=== PATIENT | female | born 1945 | race Caucasian/White ===

== ENCOUNTER → 2017-04-02 | Outpatient (CLI) | payer MEDICARE ==
--- NOTE | 2017-04-03 07:39 | MM ---
Reason for exam: screening (asymptomatic). Last mammogram was performed 1 year and 3 months ago. History: Patient is postmenopausal, has history of high-risk lesion on a previous biopsy at age 67, and has history of other cancer at age 49. Family history of breast cancer in mother. Benign right breast needle localzation of both breasts, November 12, 2012. High risk US RT VAD breast biopsy of the right breast, October 30, 2012. Benign excisional biopsy of the left breast. Took estrogen for 10 years. Physical Findings: A clinical breast exam by your physician is recommended on an annual basis and results should be correlated with mammographic findings. MG 3D Screening Mammo W/Cad Bilateral CC and MLO view(s) were taken. Prior study comparison: December 19, 2015, bilateral MG 3d screening mammo w/cad. December 06, 2014, bilateral MG screening mammo w CAD. November 20, 2013, bilateral MG screening mammo w CAD. The breast tissue is heterogeneously dense. This may lower the sensitivity of mammography. Finding: There are a occasional typically benign calcifications in both breasts. There is a chronic nodularity in the left breast. There is no new dominant lesion. ASSESSMENT: Probably benign, BI-RAD 3 RECOMMENDATION: Routine screening mammogram of both breasts in 1 year.
== END | disposition home or self-care (01) ==
LOC: RADMAMWWP 07:59
PROVIDERS: ATTEND Obstetrics & Gynecology
DX: Z12.31 Encounter for screening mammogram for malignant neoplasm of breast (principal)
CPT/HCPCS: 77063; G0202

== ENCOUNTER 2017-09-11 06:14 | Day surgery (SDC) | payer MEDICARE ==
[2017-09-06 15:38] VITALS: BMI 28.1
[~2017-09-11 06:14] MED LIST: ALPRAZolam 0.25 MG TAB PO PRN; ASPIRIN 325 MG TAB PO ONE; SODIUM CHLORIDE 0.9% 1,000 ML in EMPTY BAG 1 BAG IV ONE
[2017-09-11] MEDS ORDERED: MIDAZOLAM 2 MG/2 ML VIAL ONE ×2 (06:47→07:50)
[2017-09-11] MEDS ORDERED: fentaNYL (PF) 50 MCG/ML 2 ML AMP ONE (06:48)
[2017-09-11 06:55] LABS: Basophils % (A) 1 %; Eosinophils # (A) 0.2 k/uL (0-0.7); Eosinophils % (A) 4 %; HCT 39.5 % (34.0-46.0); HGB 13.3 gm/dL (11.4-16.0); Lymphocytes # (A) 2.5 k/uL (1.0-4.8); Lymphocytes % (A) 40 %; MCH 27.1 pg (25.0-35.0); MCHC 33.8 g/dL (31.0-37.0); MCV 80.2 fL (80.0-100.0); Mean Platelet Volume 7.6; Monocytes # (A) 0.4 k/uL (0-1.0); Monocytes % (A) 6 %; Neutrophils % (A) 48 %; Platelet Count 284 k/uL (150-450); RBC 4.92 m/uL (3.80-5.40); RDW 13.8 % (11.5-15.5); WBC 6.3 k/uL (3.8-10.6)
[2017-09-11 06:56] VITALS: TEMP 97.7
[2017-09-11] MEDS: BENZOCAINE SPRAY 1 SPRAY CAN MUCOUS MEM ONE ×3 (07:02→07:07)
[2017-09-11] MEDS ORDERED: fentaNYL (PF) 50 MCG/ML 2 ML AMP IVP ONE (07:03)
[2017-09-11] MEDS: MIDAZOLAM 2 MG/2 ML VIAL IVP ONE ×2 (07:03→07:07)
[2017-09-11 07:06] LABS: Anion Gap 12 mmol/L; Blood Urea Nitrogen 18 mg/dL (7-17); Calcium 9.6 mg/dL (8.4-10.2); Carbon Dioxide 25 mmol/L (22-30); Chloride 104 mmol/L (98-107); Glucose 109 mg/dL (74-99); Potassium 4.1 mmol/L (3.5-5.1); Sodium 141 mmol/L (137-145)
[2017-09-11] MEDS ORDERED: MIDAZOLAM 2 MG/2 ML VIAL IVP ONE ×2 (07:09→07:52)
[2017-09-11] MEDS ORDERED: LIDOCAINE 2% INJ 20 MG/ML (20 ML MDV) ONE (07:20)
[2017-09-11] MEDS ORDERED: VERAPAMIL 2.5 MG/ML 2 ML AMP ONE (07:20)
[2017-09-11] MEDS ORDERED: HEPARIN SODIUM 1,000 UN/ML (10ML VL) ONE (07:20)
[2017-09-11] MEDS ORDERED: SODIUM CHLORIDE 0.9% 1,000 ML IV ONE (07:22)
[2017-09-11] MEDS ORDERED: LIDOCAINE 2% INJ 20 MG/ML SQ ONE (07:48)
[2017-09-11] MEDS: VERAPAMIL SYRINGE (5 MG/10 ML) INTRAARTER ONE ×2 (07:53→08:18)
[2017-09-11] MEDS ORDERED: IOHEXOL 350 MG/ML 125ML BOTTLE INJ ONE (08:17)
[2017-09-11 08:21] LABS: O2 Sat Blood Gas 63.8 %
[2017-09-11 08:22] LABS: O2 Sat Blood Gas 96.1 %
[2017-09-11] MEDS ORDERED: RX INFO: IV CONTRAST WAS GIVEN 1 EACH MISC MISCELLANE PRN (08:28)
--- NOTE | 2017-09-11 08:28 | ECHOT ---
TRANSESOPHAGEAL ECHOCARDIOGRAM INDICATION: Evaluation of mitral valve. PROCEDURE: After explaining the procedure to the patient as well as risks and the complications. Blood pressure, heart rate, O2 saturation was monitored. The throat was sprayed with Cetacaine. She received 3 mg of intravenous Versed, 50 mcg intravenous fentanyl. After achieving moderate conscious sedated state, the probe was introduced into the esophagus without difficulty. Images were obtained. Following that, the probe was removed. There was no immediate complication. FINDINGS: Left atrial size is dilated. Left atrial appendage is normal. Left ventricular size is normal. There is evidence of global hypokinesis. Estimated ejection fraction is 30% to 35%. The aortic valve, mitral valve, tricuspid valve appears to be normal. Descending thoracic aorta appears to be normal. Contrast bubble study revealed no evidence of shunting across the interatrial septum. No pericardial effusion was noted. Doppler pulse wave and color Doppler was obtained and revealed moderate to severe mitral regurgitation with moderate tricuspid regurgitation. The estimated right ventricular systolic pressure 36 mmHg. Mild aortic regurgitation was noted with trace pulmonic regurgitation. There was no shunting by color Doppler study. CONCLUSION: 1. Mildly dilated left atrium with normal appearance left atrial appendage. 2. Normal left ventricular size with severe global hypokinesis. 3. Moderate to severe mitral with moderate tricuspid regurgitation and mild pulmonary hypertension. 4. Mild aortic regurgitation and trace pulmonic regurgitation. 5. No shunting across the interatrial septum. MMODL / IJN: [id number] /
[2017-09-11] MEDS ORDERED: ACYCLOVIR TOPICAL PRN (08:30)
[2017-09-11] MEDS ORDERED: valACYclovir 500 MG TAB PO PRN (08:30)
[2017-09-11] MEDS ORDERED: SODIUM CHLORIDE 0.9% 1,000 ML IV SCH (08:30)
[2017-09-11] MEDS ORDERED: NON-FORMULARY DRUG (Omeprazole [Omeprazole] 20 MG) PO SCH (09:00)
[2017-09-11] MEDS ORDERED: NON-FORMULARY DRUG (Acetaminophen [Tylenol Arthritis] 650 MG) PO SCH (09:00)
[2017-09-11] MEDS ORDERED: RALOXIFENE 60 MG TAB PO SCH (09:00)
[2017-09-11] MEDS ORDERED: OXYBUTYNIN 15 MG TAB.ER.24 PO SCH (09:00)
[2017-09-11] MEDS ORDERED: METOPROLOL TARTRATE 50 MG TAB PO SCH (09:00)
[2017-09-11] MEDS ORDERED: NON-FORMULARY DRUG (Simvastatin 40 MG) PO SCH (09:00)
[2017-09-11] MEDS ORDERED: HYDROCHLOROTHIAZIDE 12.5 MG CAP PO SCH (09:00)
[2017-09-11] MEDS ORDERED: APIXABAN 5 MG TAB PO SCH (09:00)
--- NOTE | 2017-09-11 09:27 | CC ---
CARDIAC CATHETERIZATION REPORT Mrs. Loomis is a 72-year-old female who was recently noted to be in atrial fibrillation, was found to have significant mitral regurgitation and cardiomyopathy. In view of that, recommendation was made regarding cardiac catheterization. The procedure as well as the risks and complications were discussed with the patient who is in full understanding and agreement. 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 Using Xylocaine anesthesia in the Seldinger technique, a 6-Mexican sheath was introduced in the right radial artery. Subsequently, the IV catheter in the right brachial vein was exchanged using micro catheter 6-Mexican sheath. Right heart catheterization was performed using [place]-Angie catheter. Multiple samples and pressures were calculated. Cardiac output by thermodilution was calculated. Following that, selective right and left coronary angiography were performed using 5-Mexican 3.5 bend right and left Carlos catheter. Multiple views of the coronary artery including hemiaxial views were obtained. Following that 5-Mexican tight pigtail catheter was introduced into the left ventricle and a 30-degree ZARAGOZA view of the left ventricle was obtained. Following that, the catheter and sheaths were removed. Hemostasis was obtained with deployment of a TR band. There was no immediate complication. Patient is returned to her room in stable condition. The venous sheath was removed and manual pressure was applied. The patient received 4500 units of intravenous heparin as well as intra-arterial verapamil. FINDINGS: HEMODYNAMICS: Pulmonary capillary wedge pressure, V-wave of 12 with a mean of 10 mmHg. Pulmonary artery systolic pressure of 24 mmHg with an end-diastolic of 12 and a mean of 18 mmHg. Right ventricle with a systolic pressure of 26 and an end-diastolic of 10. Right atrial with a V-wave of 8 and a mean of 7 mmHg. There was no gradient across the aortic valve. The left ventricular end-diastolic pressure was 12 mmHg. Cardiac output by thermodilution 5 L/minute and by Aida of 4 L/minute. Right atrial saturation of 64%. Pulmonary artery saturation 64%. Radial artery saturation of 96%. CORONARIES: LEFT MAIN: This is a large-sized vessel bifurcating left circumflex and left anterior descending artery. Left main coronary artery without any obstructive disease. LEFT ANTERIOR DESCENDING ARTERY: This is a large-sized vessel reaching toward the apex with a wraparound apex segment giving rise to 2 diagonal branches. The second one is large in caliber. The left anterior descending artery as well as branches have no evidence of obstructive coronary artery disease. LEFT CIRCUMFLEX: This is a nondominant vessel, large in caliber giving rise to 3 obtuse marginal branches. The second one is largest in caliber. The left circumflex as well as branches have no evidence of coronary artery disease. RIGHT CORONARY ARTERY: This is a dominant vessel, moderate to large in caliber bifurcating distally to PDA and PLV. The right coronary artery as well as branches have no evidence of obstructive coronary artery disease. LEFT VENTRICULOGRAM: Left ventriculogram is performed in 30-degree ZAR[place]OZA view and revealed a 3 to 4+ mitral regurgitation with moderate to severe global hypokinesis with ejection fraction of 30% to 35%. CONCLUSION: 1. Normal coronary arteries. 2. Severe mitral regurgitation with an impaired left ventricular systolic function. RECOMMENDATION: In view of finding anatomy, I recommend proceeding with evaluation for mitral valve repair. Those findings and recommendations were discussed with the patient and her family and are in full understanding and agreement. Duration of procedure is 34 minutes. MMODL / IJN: [id number] /
--- NOTE | 2017-09-11 09:34 | LTR ---
September 11, 2017 Re: Kaleigh Farmerer Dear Dr. Andersen: I had the opportunity to perform cardiac catheterization on Mrs. Loomis at [facility] on the 11 of September and a full copy of the procedure note will be forwarded to you. In brief, she was found to have severe mitral regurgitation with a moderate to severely impaired left ventricular systolic function and normal coronary anatomy. Based on those findings, I have recommended proceeding with evaluation for mitral valve repair. I will keep you updated on her progress and thank you again for allowing me the opportunity to participate in her care. Please feel free to call for any questions. Sincerely yours, MD JUJU BrinkL / MARGARITAN: [id number] /
[2017-09-11 09:55] VITALS: RESP 18
[2017-09-11] MEDS ORDERED: ACETAMINOPHEN TAB 325 MG TAB ONE (11:25)
[2017-09-11 11:49] VITALS: BP 117/61; PULSE 83
== END 2017-09-11 13:33 | disposition home or self-care (01) ==
LOC: CATHCVL 06:14
PROVIDERS: ATTEND Internal Medicine Interventional Cardiology
DX: I08.3 Combined rheumatic disorders of mitral, aortic and tricuspid valves (principal); I48.1 Persistent atrial fibrillation; Z79.01 Long term (current) use of anticoagulants; I42.9 Cardiomyopathy, unspecified; I10 Essential (primary) hypertension; E78.2 Mixed hyperlipidemia; Z79.1 Long term (current) use of non-steroidal anti-inflammatories (NSAID); Z79.899 Other long term (current) drug therapy; Z88.5 Allergy status to narcotic agent
CPT/HCPCS: 93312; 93320; 93325; 93460; 80048; 85018; 82810; 85025; C1769 ×3; C1894 ×4; C1751; J2001; J2250; J3010; J1644; Q9967

== ENCOUNTER → 2018-04-17 | Outpatient (CLI) | payer MEDICARE ==
--- NOTE | 2018-04-17 09:17 | BD ---
EXAMINATION TYPE: Axial Bone Density DATE OF EXAM: 04/17/2018 COMPARISON: 12.19.2015 CLINICAL HISTORY: 73 YR OLD FEMALE....ICD-10 CODE: M85.80 OTHER SPECIFIED DISORDER OF BONE DENSITY Height: 65.4 Weight: 184 FRAX RISK QUESTIONS: NOTHING TO NOTE HERE RISK FACTORS HISTORY OF: Family History of Osteoporosis: YES, HER MOTHER WITHOUT FX TO HIPS Active: NOT REALLY, SURG TO FOOT Diet low in dairy products/other sources of calcium: YES, A BIT Postmenopausal woman: HYST AT AGE 48 Lost more than 2 inches in height since high school: YES Frequent falls: UNSTEADY MEDICATIONS: EVISTA FOR OSTEOPOROSIS, FOR ABOUT 10 YRS Additional Medications: BP MEDS, STATIN FOR CHOLESTEROL, REFLEX MEDS, NSAIDS, PAIN MEDS, HEART MEDS Additional History: OPEN HEART SURG, OSTEOARTHRITIS EXAM MEASUREMENTS: Bone mineral densitometry was performed using the [employer] System. Bone mineral density as measured about the Lumbar spine is: ----- L1-L4(G/cm2): 0.999 T Score Values are as follows: ----- L1: -1.8 ----- L2: -2.0 ----- L3: -0.9 ----- L4: -1.5 ----- L1-L4: -1.5 Bone mineral density has: Increased 0.8% since study of: 12.19.2015 Bone mineral density about the R hip (g/cm2): 1.014 Bone mineral density about the L hip (g/cm2): 0.986 T Score values are as follows: -----R Neck: 0.4 -----L Neck: -0.2 -----R Total: 0.0 -----L Total: -0.2 Bone mineral density has: Decreased -0.1 % since study of: 12.19.2015 FRAX%s: THERE IS A 7.6% CHANCE FOR A MAJOR OSTEOPOROTIC FX AND A 0.7% FOR HIP FX....PROBABILITY OF FX IN 10 YRS TIME IMPRESSION: Osteopenia (T Score between -2.5 and -1) persists in the low back. Bone density fairly stable from pr ior. There remains slightly increased risk of fracture and the patient may be considered for treatment. Re-Screen 2-5 years. NOTE: T-SCORE=SD OF THE YOUNG ADULT MEAN.
--- NOTE | 2018-04-17 11:25 | MM ---
Reason for exam: screening (asymptomatic). Last mammogram was performed 1 year ago. History: Patient is postmenopausal, has history of high-risk lesion on a previous biopsy at age 67, and has history of other cancer at age 49. Family history of breast cancer in mother. Benign right breast needle localzation of both breasts, November 12, 2012. High risk US RT VAD breast biopsy of the right breast, October 30, 2012. Benign excisional biopsy of the left breast. Took estrogen for 10 years. Physical Findings: A clinical breast exam by your physician is recommended on an annual basis and results should be correlated with mammographic findings. MG 3D Screening Mammo W/Cad Bilateral CC and MLO view(s) were taken. Technologist: Penny He RT (R)(M) Prior study comparison: April 02, 2017, bilateral MG 3d screening mammo w/cad. December 19, 2015, bilateral MG 3d screening mammo w/cad. The breast tissue is heterogeneously dense. This may lower the sensitivity of mammography. There are benign appearing round calcifications bilaterally. There is chronic nodularity in the left breast. There is no discrete abnormality. ASSESSMENT: Benign, BI-RAD 2 RECOMMENDATION: Routine screening mammogram of both breasts in 1 year.
== END | disposition home or self-care (01) ==
LOC: RADMAMWWP 07:31
PROVIDERS: ATTEND Family Medicine
DX: Z12.31 Encounter for screening mammogram for malignant neoplasm of breast (principal); M85.88 Other specified disorders of bone density and structure, other site
CPT/HCPCS: 77063; 77067; 77080

== ENCOUNTER 2018-07-23 11:40 | Observation (INO) | payer MEDICARE ==
[2018-07-23 12:54] LABS: Basophils % (A) 1 %; Eosinophils # (A) 0.1 k/uL (0-0.7); Eosinophils % (A) 2 %; HCT 34.9 % (34.0-46.0); HGB 11.1 gm/dL (11.4-16.0); Hypochromasia Slight; Lymphocytes # (A) 1.2 k/uL (1.0-4.8); Lymphocytes % (A) 27 %; MCH 24.4 pg (25.0-35.0); MCHC 31.9 g/dL (31.0-37.0); MCV 76.5 fL (80.0-100.0); Mean Platelet Volume 6.8; Microcytosis Slight; Monocytes # (A) 0.3 k/uL (0-1.0); Monocytes % (A) 6 %; Neutrophils # (A) 2.8 k/uL (1.3-7.7); Neutrophils % (A) 62 %; Platelet Count 231 k/uL (150-450); RBC 4.56 m/uL (3.80-5.40); RDW 15.7 % (11.5-15.5); WBC 4.5 k/uL (3.8-10.6)
[2018-07-23 13:05] LABS: Albumin 4.5 g/dL (3.5-5.0); Calcium 9.6 mg/dL (8.4-10.2); Potassium 4.2 mmol/L (3.5-5.1); Total Bilirubin 0.7 mg/dL (0.2-1.3); Total Protein 6.8 g/dL (6.3-8.2)
[2018-07-23 13:10] LABS: D-Dimer 0.4 mg/L FEU (<0.60); Prothrombin Time 10.6 sec (9.0-12.0)
--- NOTE | 2018-07-23 13:14 | XR ---
EXAMINATION TYPE: XR chest 2V DATE OF EXAM: 07/23/2018 COMPARISON: None INDICATION: Dysrhythmia tachycardia TECHNIQUE: Frontal and lateral views of the chest are obtained. FINDINGS: The heart size is normal. The pulmonary vasculature is normal. The lungs are clear. Sternotomy wires are present from previous cardiac surgery. IMPRESSION: 1. No acute pulmonary process.
[2018-07-23 13:16] LABS: Creatine Kinase 82 U/L (30-135)
[2018-07-23 13:30] LABS: Creatine Kinase MB 0.8 ng/mL (0.0-2.4); Troponin I <0.012 ng/mL (0.000-0.034)
[2018-07-23] MEDS ORDERED: METOPROLOL TARTRATE 5 MG/5 ML VIAL IVP STA (13:52)
[2018-07-23] MEDS ORDERED: SODIUM CHLORIDE 0.9% 500 ML 500 ML IV STA (13:52)
--- NOTE | 2018-07-23 14:44 | ED ---
Arrhythmia/Palpitations HPI - General Chief Complaint: Arrhythmia/Palpitations Stated Complaint: high heart rate/high BP Time Seen by Provider: 07/23/18 11:59 Source: patient Mode of arrival: ambulatory Limitations: no limitations - History of Present Illness Initial Comments: This is a 73-year-old female history of atrial flutter who presents today with complaints of which she believes is recurrence of a flutter. He states she's had a sliding scale for her metoprolol. heart rate slowed below 55 she does not take it if is between 55 and 80 she'll take one half tablet of his by me shows a Full tablet. Lately is below and she's not been taking metoprolol. She has any chest pain fevers chills nausea vomiting sweats she does state he does have some slight shortness of breath she also blood pressure was elevated 202/110 at home normally about 1:30 systolic. She had been on blood thinners up until this past May. Additionally she states she did a lot of driving yesterday to a couple 100 miles. Complaint: palpitations, irregular heart beat - Related Data Home Medications Medication Instructions Recorded Confirmed Omeprazole 20 mg PO DAILY 10/23/16 07/23/18 Acetaminophen [Tylenol Arthritis] 650 mg PO DAILY 09/06/17 07/23/18 valACYclovir [Valtrex] 1,000 mg PO DAILY PRN 09/06/17 07/23/18 Aspirin EC [Ecotrin Low Dose] 81 mg PO DAILY 07/23/18 07/23/18 Calcium Carbonate [Calcium] 600 mg PO BID 07/23/18 07/23/18 Cholecalciferol [Vitamin D3] 1,000 unit PO DAILY 07/23/18 07/23/18 Glucosam/Michael-Msm1/C/Lamberto/Bosw 1 tab PO DAILY 07/23/18 07/23/18 [Glucosamine-Chondroitin Tablet] Meloxicam [Mobic] 15 mg PO DAILY 07/23/18 07/23/18 Metoprolol Succinate [Toprol XL] 12.5 - 25 mg PO DAILY 07/23/18 07/23/18 Simvastatin [Zocor] 20 mg PO HS 07/23/18 07/23/18 Allergies Allergy/AdvReac Type Severity Reaction Status Date / Time garlic Allergy Unknown Verified 07/23/18 12:15 onion Allergy Unknown Verified 07/23/18 12:15 hydrocodone [From Vicodin] AdvReac nausea/ligh Verified 07/23/18 12:15 theaded propoxyphene AdvReac Unknown Verified 07/23/18 12:15 [From Darvocet-N] phenthyazines AdvReac Nausea & Uncoded 09/06/17 15:22 Vomiting Review of Systems ROS Statement: Those systems with pertinent positive or pertinent negative responses have been documented in the HPI. ROS Other: All systems not noted in ROS Statement are negative. Past Medical History Past Medical History: Atrial Fibrillation, Cancer, GERD/Reflux, Hyperlipidemia, Hypertension, Osteoarthritis (OA) Additional Past Medical History / Comment(s): "stress test showed weakness in heart muscle and leaking mitral valve", skin cancer History of Any Multi-Drug Resistant Organisms: MRSA Date of last positivie culture/infection: 10/08/16 MDRO Source:: TOE LEFT FOOT Past Surgical History: Cardiac Valve Replacement, Hysterectomy, Joint Replacement Additional Past Surgical History / Comment(s): TRIPLE ARTHRODESIS LEFT FOOT, SID CATARACT SURGERY, skin cancer removed from chest, rt knee replacement Past Anesthesia/Blood Transfusion Reactions: Previous Problems w/ Anesthesia Past Psychological History: No Psychological Hx Reported Smoking Status: Never smoker Past Alcohol Use History: None Reported Past Drug Use History: None Reported - Past Family History Father Family Medical History: Cancer Additional Family Medical History / Comment(s): LEUKEMIA Mother Family Medical History: Dementia, Hypertension General Exam - General Exam Comments Initial Comments: This is a well-developed well-nourished awake alert oriented 3 female Limitations: no limitations General appearance: alert, anxious Head exam: Present: atraumatic, normocephalic, normal inspection Eye exam: Present: normal appearance, PERRL, EOMI. Absent: scleral icterus, conjunctival injection, periorbital swelling ENT exam: Present: normal exam, mucous membranes moist Neck exam: Present: normal inspection. Absent: tenderness, meningismus, lymphadenopathy Respiratory exam: Present: normal lung sounds bilaterally. Absent: respiratory distress, wheezes, rales, rhonchi, stridor Cardiovascular Exam: Present: tachycardia, irregular rhythm. Absent: systolic murmur, diastolic murmur, rubs, gallop, clicks GI/Abdominal exam: Present: soft, normal bowel sounds. Absent: distended, tenderness, guarding, rebound, rigid Extremities exam: Present: normal inspection, full ROM, normal capillary refill. Absent: tenderness, pedal edema, joint swelling, calf tenderness Back exam: Present: normal inspection Neurological exam: Present: alert, oriented X3, CN II-XII intact Psychiatric exam: Present: normal affect, normal mood Skin exam: Present: warm, dry, intact, normal color. Absent: rash Course Vital Signs 07/23/18 07/23/18 11:44 15:40 Temperature 98.0 F Pulse Rate 113 H 58 L Respiratory 16 18 Rate Blood Pressure 176/102 168/96 O2 Sat by Pulse 100 98 Oximetry - Reevaluation(s) Reevaluation #1: 07/23/18 16:15 He does seem to slow her heart rate down spontaneously without IV medications she was given fluids. Reevaluation #2: 07/23/18 16:18 Repeat EKG shows a junctional rhythm of 53 QRS 70 QT since QTC 222/[address]-T wave configuration Reevaluation #3: 07/23/18 16:20 I did a long discussion with patient regarding the findings she will be admitted as stated above EKG Findings - EKG Results: EKG: interpreted by ERMD (Atrial flutter with variable AV block rate was 117 QRS 76 QT since QTC at [id number] marked ST abnormality) Medical Decision Making - Medical Decision Making I did discuss the findings with the patient did eat shows evidence of a junctional rhythm she still has having intermittent episodes of flutter on the monitor. She will be admitted for cardiology consultation. I did discuss the findings with Domo Reyes who is covering for Dr. cota the patient will be admitted for evaluation and cardiology consultation of note the blood pressure is improved after IV fluids. - Lab Data Result diagrams: 07/23/18 12:22 07/23/18 12:22 Lab Results 07/23/18 07/23/18 07/23/18 Range/Units 12:22 12:22 12:22 WBC 4.5 (3.8-10.6) k/uL RBC 4.56 (3.80-5.40) m/uL Hgb 11.1 L (11.4-16.0) gm/dL Hct 34.9 (34.0-46.0) % MCV 76.5 L (80.0-100.0) fL MCH 24.4 L (25.0-35.0) pg MCHC 31.9 (31.0-37.0) g/dL RDW 15.7 H (11.5-15.5) % Plt Count 231 (150-450) k/uL Neutrophils % 62 % Lymphocytes % 27 % Monocytes % 6 % Eosinophils % 2 % Basophils % 1 % Neutrophils # 2.8 (1.3-7.7) k/uL Lymphocytes # 1.2 (1.0-4.8) k/uL Monocytes # 0.3 (0-1.0) k/uL Eosinophils # 0.1 (0-0.7) k/uL Basophils # 0.0 (0-0.2) k/uL Hypochromasia Slight Microcytosis Slight PT (9.0-12.0) sec INR (<1.2) APTT (22.0-30.0) sec D-Dimer (<0.60) mg/L FEU Sodium 141 (137-145) mmol/L Potassium 4.2 (3.5-5.1) mmol/L Chloride 108 H (98-107) mmol/L Carbon Dioxide 25 (22-30) mmol/L Anion Gap 8 mmol/L BUN 20 H (7-17) mg/dL Creatinine 0.80 (0.52-1.04) mg/dL Est GFR (CKD-EPI)AfAm 84 (>60 ml/min/1.73 sqM) Est GFR (CKD-EPI)NonAf 73 (>60 ml/min/1.73 sqM) Glucose 91 (74-99) mg/dL Calcium 9.6 (8.4-10.2) mg/dL Magnesium 2.0 (1.6-2.3) mg/dL Total Bilirubin 0.7 (0.2-1.3) mg/dL AST 27 (14-36) U/L ALT 44 (9-52) U/L Alkaline Phosphatase 71 (38-126) U/L Total Creatine Kinase 82 (30-135) U/L CK-MB (CK-2) 0.8 (0.0-2.4) ng/mL CK-MB (CK-2) Rel Index 1.0 Troponin I <0.012 (0.000-0.034) ng/mL Total Protein 6.8 (6.3-8.2) g/dL Albumin 4.5 (3.5-5.0) g/dL TSH 3.270 (0.465-4.680) mIU/L Urine Color Urine Appearance (Clear) Urine pH (5.0-8.0) Ur Specific [place] (1.001-1.035) Urine Protein (Negative) Urine Glucose (UA) (Negative) Urine Ketones (Negative) Urine Blood (Negative) Urine Nitrite (Negative) Urine Bilirubin (Negative) Urine Urobilinogen (<2.0) mg/dL Ur Leukocyte Esterase (Negative) 07/23/18 07/23/18 Range/Units 12:22 15:11 WBC (3.8-10.6) k/uL RBC (3.80-5.40) m/uL Hgb (11.4-16.0) gm/dL Hct (34.0-46.0) % MCV (80.0-100.0) fL MCH (25.0-35.0) pg MCHC (31.0-37.0) g/dL RDW (11.5-15.5) % Plt Count (150-450) k/uL Neutrophils % % Lymphocytes % % Monocytes % % Eosinophils % % Basophils % % Neutrophils # (1.3-7.7) k/uL Lymphocytes # (1.0-4.8) k/uL Monocytes # (0-1.0) k/uL Eosinophils # (0-0.7) k/uL Basophils # (0-0.2) k/uL Hypochromasia Microcytosis PT 10.6 (9.0-12.0) sec INR 1.0 (<1.2) APTT 23.0 (22.0-30.0) sec D-Dimer 0.40 (<0.60) mg/L FEU Sodium (137-145) mmol/L Potassium (3.5-5.1) mmol/L Chloride (98-107) mmol/L Carbon Dioxide (22-30) mmol/L Anion Gap mmol/L BUN (7-17) mg/dL Creatinine (0.52-1.04) mg/dL Est GFR (CKD-EPI)AfAm (>60 ml/min/1.73 sqM) Est GFR (CKD-EPI)NonAf (>60 ml/min/1.73 sqM) Glucose (74-99) mg/dL Calcium (8.4-10.2) mg/dL Magnesium (1.6-2.3) mg/dL Total Bilirubin (0.2-1.3) mg/dL AST (14-36) U/L ALT (9-52) U/L Alkaline Phosphatase (38-126) U/L Total Creatine Kinase (30-135) U/L CK-MB (CK-2) (0.0-2.4) ng/mL CK-MB (CK-2) Rel Index Troponin I (0.000-0.034) ng/mL Total Protein (6.3-8.2) g/dL Albumin (3.5-5.0) g/dL TSH (0.465-4.680) mIU/L Urine Color Light Yellow Urine Appearance Clear (Clear) Urine pH 7.0 (5.0-8.0) Ur Specific [place] 1.008 (1.001-1.035) Urine Protein Trace H (Negative) Urine Glucose (UA) Negative (Negative) Urine Ketones Negative (Negative) Urine Blood Negative (Negative) Urine Nitrite Negative (Negative) Urine Bilirubin Negative (Negative) Urine Urobilinogen <2.0 (<2.0) mg/dL Ur Leukocyte Esterase Negative (Negative) - Radiology Data Radiology results: report reviewed (I did review the imaging and report no acute findings are seen), image reviewed Critical Care Time Critical Care Time: Yes Critical Care Time: 31 minutes of critical care time which includes initial presentation with history physical labs x-rays. He required IV medication. This includes discussion with the main physician nurse practitioner as well as attempted review of old charting. Documentation the above and admission orders. Disposition Clinical Impression: Atrial flutter, Hypertension Disposition: ADMITTED IP TO THIS HOSP Condition: Stable Referrals: Jessica Andersen MD [Primary Care Provider] - 1-2 days
[2018-07-23 15:14] LABS: Appearance,Urine Clear (Clear); Bilirubin,Urine Negative (Negative); Blood,Urine Negative (Negative); Color,Urine Light Yellow; Glucose,Urine (UA) Negative (Negative); Ketones,Urine Negative (Negative); Leukocyte Esterase,Urine Negative (Negative); Nitrite,Urine Negative (Negative); Protein,Urine Trace (Negative); Specific Gravity,Urine 1.008 (1.001-1.035); Urobilinogen,Urine <2.0 mg/dL (<2.0)
[2018-07-23] MEDS ORDERED: HEPARIN SODIUM,PORCINE 5,000 UNIT/ML 1 ML VIAL IV ONE (16:13)
[2018-07-23] MEDS ORDERED: HEPARIN SODIUM,PORCINE 5,000 UNIT/ML 1 ML VIAL IV PRN (16:13)
[2018-07-23] MEDS ORDERED: HEPARIN SOD,PORK IN 0.45% NACL 25,000 UNIT in 0.45% NACL 1 250ML.BAG IV SCH (16:15)
[2018-07-23] MEDS ORDERED: NALOXONE 0.4 MG/ML 1 ML VIAL IV PRN (16:22)
[2018-07-23] MEDS ORDERED: valACYclovir 500 MG TAB PO PRN (16:25)
[2018-07-23] MEDS: SODIUM CHLORIDE 0.9% 1,000 ML IV SCH (17:54)
[2018-07-23 18:02] VITALS: BMI 29.7
[2018-07-23] MEDS: ATORVASTATIN 10 MG TAB PO SCH (22:30)
[2018-07-24] MEDS ORDERED: ALPRAZolam 0.25 MG TAB PO PRN (00:05)
[2018-07-24] MEDS ORDERED: MELATONIN 3 MG TABLET PO PRN (00:05)
--- NOTE | 2018-07-24 01:40 | HP ---
HISTORY AND PHYSICAL DATE OF SERVICE: 07/23/2018 CHIEF COMPLAINT: Palpitations as well as headache and hypertension. HISTORY OF PRESENT ILLNESS: This 73-year-old woman with a past history of multiple medical problems including atrial ablation, history of GERD, hypertension, history of DJD, being followed by Dr. Jessiac Andersen in the outpatient setting, had a mitral valve repair as well as Maze procedure in by [place] at [facility] in November last year. Subsequently patient had atrial fibrillation. Patient had cardioversion also. The patient also had atrial flutter, but recently was monitored at [facility] and was told to have no more arrhythmias at that time. The patient was apparently taking metoprolol according the heart rate based on a sliding scale. The patient was usually monitoring heart rate using the pulse oximeter. Today the patient noted that the heart rate was 118. Patient felt some shortness of breath. The patient also had tightness. Blood pressure found to be 202/110. The patient came to [facility] and was admitted for further evaluation and treatment. Patient was given Lopressor 2.5 mg IV, which converted the rhythm to sinus rhythm. There is no history of fevers or rigors. No history of headache, loss of consciousness, seizures. Patient did take Coumadin for 6 months after the surgery. The patient is also followed by Dr. Springer in the outpatient setting. PAST MEDICAL HISTORY: Atrial fibrillation, atrial flutter, GERD, hypertension, hypertension, history of DJD, history of MRSA, history of mitral valve replacement and Maze procedure as mentioned earlier. MEDICATIONS: 1. Valtrex 1000 mg daily p.r.n. 2. Zocor 20 mg at bedtime. 3. Omeprazole 20 mg daily. 4. Toprol-XL 12.5 mg. 6. Mobic 50 mg p.o. daily. 7. Glucosamine 1 tablet p.o. daily. 8. Vitamin D 3000 daily. 9. Calcium 600 mg p.o. b.i.d. 10.Aspirin 81 mg p.o. daily. 11.Tylenol 650 mg p.o. daily. FAMILY HISTORY: History of cancer and leukemia in the family. SOCIAL HISTORY: History of occasional alcohol. No smoking. REVIEW OF SYSTEMS: ENT: No diminished vision or hearing. CARDIOVASCULAR: As mentioned. RESPIRATORY: As mentioned. GI: No nausea. : No dysuria or hematuria. NERVOUS SYSTEM: No numbness or weakness. ALLERGY: None. MUSCULOSKELETAL: As mentioned. HEMATOLOGY/ONCOLOGY: No history of anemia. ENDOCRINE: No history of diabetes or hypothyroidism. CONSTITUTIONAL: As mentioned earlier. RHEUMATOLOGY: As mentioned. PSYCHIATRY: As mentioned. PHYSICAL EXAMINATION: Alert, oriented x3. Pulse 80 and 58, blood pressure 169/70, respirations 18, temperature 98 degrees, pulse ox 100 percent on room air. HEENT: Conjunctivae normal. Oral mucosa moist. NECK: No JVD. No lymph node enlargement. CARDIOVASCULAR: S1 and S2 muffled. Ejection systolic murmur in the left sternal border 2nd intercostal space present. No S3 or S4. RESPIRATORY: Breath sounds diminished at the bases. No rhonchi no crackles. ABDOMEN: Soft, nontender. No mass palpable. LEGS: No edema. NERVOUS SYSTEM: Higher functions as mentioned. Moves all 4 limbs. No focal motor or sensory deficits. LYMPHATICS: None. SKIN: No ulcer or rash. JOINTS: No active deformity or arthropathy. LABS: WBC 4.2, hemoglobin 11.1. Otherwise sodium 141, potassium 4.2. EKG on admission shows atrial flutter with varying block with fast ventricular rate. ASSESSMENT: 1. Atrial flutter with varying block with fast ventricular rate, present on admission. 2. History of paroxysmal atrial flutter/fibrillation status post cardioversion. 3. Hypertensive urgency. 4. History of mitral valve repair and Maze procedure for mild regurgitation. 5. History of gastroesophageal reflux disease. 6. Hypertension. 7. History of degenerative joint disease. 8. History of MRSA. 9. History of hysterectomy. 10.Anemia, microcytic, of undetermined etiology. RECOMMENDATIONS AND DISCUSSION: In this 72-year-old woman who presented with multiple complex medical issues, at this time we will monitor, continue current management and symptomatic treatment. The patient is started on metoprolol which we will continue. Obtain cardiology consultation and resume the home medications. I would also recommend possible maintenance therapy and consider long-term anticoagulation because of paroxysmal atrial fibrillation and cardiac arrhythmia. A 2D echo also will be recommended for evaluation. Otherwise, prognosis guarded because of multiple complex medical issues. Further recommendations to follow. MMODL / IJN: [id number] / MTDD
[2018-07-24 06:21] LABS: Anisocytosis Slight; Basophils % (A) 1 %; Eosinophils # (A) 0.1 k/uL (0-0.7); Eosinophils % (A) 3 %; HCT 32.5 % (34.0-46.0); Hypochromasia Moderate; Lymphocytes # (A) 1.4 k/uL (1.0-4.8); Lymphocytes % (A) 32 %; MCH 24.1 pg (25.0-35.0); MCHC 30.7 g/dL (31.0-37.0); MCV 78.5 fL (80.0-100.0); Mean Platelet Volume 6.7; Monocytes # (A) 0.3 k/uL (0-1.0); Monocytes % (A) 6 %; Neutrophils # (A) 2.3 k/uL (1.3-7.7); Neutrophils % (A) 55 %; Platelet Count 209 k/uL (150-450); RBC 4.15 m/uL (3.80-5.40); WBC 4.2 k/uL (3.8-10.6)
[2018-07-24] MEDS: PANTOPRAZOLE 40 MG TABLET PO SCH (06:59)
[2018-07-24] MEDS: MELOXICAM 7.5 MG TAB PO SCH (08:59)
[2018-07-24] MEDS: CHOLECALCIFEROL 1,000 UNIT TAB PO SCH (09:01)
[2018-07-24] MEDS: CALCIUM CARBONATE 500 MG CHEWABLE PO SCH ×2 (09:01→22:33)
[2018-07-24] MEDS: METOPROLOL SUCCINATE (ER) 25 MG TAB.ER.24H PO SCH (09:01)
[2018-07-24] MEDS: ASPIRIN 81 MG PO SCH (09:01)
[2018-07-24] MEDS: ACETAMINOPHEN TAB 325 MG TAB PO SCH (09:01)
--- NOTE | 2018-07-24 12:28 | CONS ---
CONSULTATION This is a 73-year-old lady with history of mitral regurgitation, status post mitral valve repair as well as a Maze procedure with Dr. Webster at [facility] in November of last year. Subsequently has had atrial fibrillation in spite of the Maze procedure and underwent cardioversion comes in complaining of sustained palpitations yesterday. She was found to be in atrial flutter with poorly controlled ventricular rate and then subsequently she went back into sinus rhythm and the EKG at that time showed junctional rhythm with a heart rate of 53 beats per minute. Her EKG is very similar to the EKG she had in April of 2018 when she was in junctional rhythm with a heart rate of 58 beats per minute. This morning she denies chest pain, difficulty in breathing, palpitations, syncope or focal neurological deficits. PAST MEDICAL HISTORY: Significant for mitral regurgitation, status post mitral valve repair, Maze procedure, hypertension, paroxysmal atrial flutter fibrillation, GERD. MEDICATIONS: Medications at home included Zocor, Toprol XL, aspirin, Tylenol, and omeprazole. ALLERGIES: The patient is allergic to VICODIN, DARVOCET, GARLIC and PHENOTHIAZINES. FAMILY HISTORY: Family history is negative for premature coronary artery disease. SOCIAL HISTORY: Social history is negative for current smoking, EtOH abuse, or drug abuse. REVIEW OF SYSTEMS: HEENT is unremarkable. CARDIAC: As described above. RESPIRATORY: Negative. GI: Negative. GENITOURINARY: Negative. ALLERGY/IMMUNOLOGY: Negative. SKIN: Negative. MUSCULOSKELETAL: Negative. ENDOCRINE: Negative. HEMATOLOGICAL: Negative. DERM: Negative. CONSTITUTIONAL: Negative. ONCOLOGICAL: Negative. Rest of the system review is not relevant. PHYSICAL EXAMINATION: On exam, afebrile, heart rate is 50 beats per minute, blood pressure is 136/82, respiratory rate is 18, O2 sat is 96% on room air. There is no jugular venous distention. Carotid upstroke is normal. There is no bruit. Chest exam reveals good air entry bilaterally. Heart exam reveals first and second heart sounds. No gallop. No murmur. Abdomen is soft, nontender. Examination of extremities did not reveal any edema. Peripheral pulses are felt. LABS: Labs show a hemoglobin of 10, potassium is 4.2 creatinine is 0.8. ASSESSMENT: 1. Paroxysmal atrial flutter fibrillation. 2. Mitral regurgitation, status post mitral valve repair. PLAN: The patient is on IV heparin. We will start her on Coumadin and once adequately anticoagulated, she can be discharged home and outpatient followup arranged through Dr. Springer. The patient is in stable junctional rhythm which is chronic and she has had it on her outpatient EKGs also. Patient can be discharged home on Lovenox if she is covered for it. MMODL / IJN: [id number] /
[2018-07-24] MEDS: ENOXAPARIN 80 MG/0.8 ML SYRINGE SQ SCH ×2 (16:38→22:33)
[2018-07-24] MEDS: SODIUM CHLORIDE 0.9% 1,000 ML IV SCH (17:22)
--- NOTE | 2018-07-24 17:57 | ECHOF ---
Referral Reason:a flutter MEASUREMENTS -------- HEIGHT: 170.2 cm WEIGHT: 86.2 kg BP: 133/86 RVIDd: 2.1 cm (< 3.3) IVSd: 1.3 cm (0.6 - 1.1) LVIDd: 4.0 cm (3.9 - 5.3) LVPWd: 1.3 cm (0.6 - 1.1) IVSs: 1.8 cm LVIDs: 1.9 cm LVPWs: 1.7 cm LAESV Index (A-L): 29.44 ml/m Ao Diam: 2.7 cm (2.0 - 3.7) AV Cusp: 1.9 cm (1.5 - 2.6) LA Diam: 3.9 cm (2.7 - 3.8) MV EXCURSION: 12.364 mm (> 18.000) MV EF SLOPE: 36 mm/s (70 - 150) EPSS: 0.4 cm MV E Mc: 1.49 m/s MV DecT: 395 ms MV A Mc: 0.86 m/s MV E/A Ratio: 1.73 RAP: 15.00 mmHg RVSP: 38.04 mmHg FINDINGS -------- Undetermined rhythm. This was a technically adequate study. The left ventricular size is normal. There is mild concentric left ventricular hypertrophy. Overa ll left ventricular systolic function is normal with, an EF between 55 - 60 %. There is paradoxical /dysynergic septal motion consistent with post-operative status. The right ventricle is normal in size. LA is midly dilated 29-33ml/m2. The right atrium is normal in size. Aortic valve is trileaflet and is mildly thickened. Trace amount of aortic regurgitation. There is trace mitral regurgitation. Mitral ring annulloplasty is in place. Mild tricuspid regurgitation present. There is mild pulmonary hypertension. The right ventricular systolic pressure, as measured by Doppler, is 38.04mmHg. There is no pulmonic regurgitation present. The aortic root size is normal. The inferior vena cava is mildly dilated. There is no pericardial effusion. CONCLUSIONS -------- 1. Undetermined rhythm. 2. This was a technically adequate study. 3. The left ventricular size is normal. 4. There is mild concentric left ventricular hypertrophy. 5. Overall left ventricular systolic function is normal with, an EF between 55 - 60 %. 6. There is paradoxical/dysynergic septal motion consistent with post-operative status. 7. The right ventricle is normal in size. 8. LA is midly dilated 29-33ml/m2. 9. Aortic valve is trileaflet and is mildly thickened. 10. Trace amount of aortic regurgitation. 11. There is trace mitral regurgitation. 12. Mitral ring annulloplasty is in place. 13. Mild tricuspid regurgitation present. 14. There is mild pulmonary hypertension. 15. There is no pulmonic regurgitation present. 16. The aortic root size is normal. 17. The inferior vena cava is mildly dilated. 18. There is no pericardial effusion. ZINC FURNACE CHARGER: Mari Milner RDCS
[2018-07-24] MEDS ORDERED: WARFARIN 5 MG TAB PO ONE (18:00)
[2018-07-24] MEDS: ATORVASTATIN 10 MG TAB PO SCH (22:33)
--- NOTE | 2018-07-24 22:43 | PN ---
PROGRESS NOTE DATE OF SERVICE: 07/24/2018 This 73-year-old woman was admitted with palpitation and headache and hypertension is being closely monitored. No chest pain. No palpitations. No fever. The patient had atrial flutter with varying block. Cardiology is also following the patient closely. Dr. Padgett has seen the patient and recommended to initiate Coumadin. The patient is also on junctional rhythm. Lovenox bridging is also being planned at this time. A 2D echo with Doppler was done which showed ejection fraction of 50 to 60%. Paradoxical septal motion consistent with postoperative status. PAST MEDICAL HISTORY: Reviewed. REVIEW OF SYSTEMS: CARDIOVASCULAR: As mentioned earlier. RESPIRATORY: As mentioned earlier. GI: As mentioned earlier. no dysuria. NERVOUS SYSTEM: No numbness, weakness. CURRENT MEDICATIONS ARE: Reviewed and include: 1. Tylenol 650 p.o. daily. 2. Xanax 0.5 t.i.d. 3. Aspirin 81 mg. 4. Lipitor 10 mg. 5. Tums 500 mg b.i.d. 6. Vitamin D3 1000 daily. 7. Lovenox 80 mg subcu b.i.d. 8. Melatonin. 9. Mobic. 10.Toprol XL. 11.Narcan. 12.Valtrex. PHYSICAL EXAM: Patient is alert, oriented x2. Pulse of 48, blood pressure is 130/72, respirations 18, temperature 97.7, pulse ox 98% on room air. HEENT: Conjunctivae normal. NECK: No jugular venous distention. CARDIOVASCULAR: S1, S2 muffled. RESPIRATORY: Breath sounds diminished in the bases. A few scattered rhonchi. ABDOMEN: Soft. Nontender. NERVOUS SYSTEM: No focal deficits. LABS: WBC 4.8, hemoglobin is 10, MCV 78.5. ASSESSMENT: 1. Atrial flutter with varying block with fast ventricular rate, present on admission. 2. History of paroxysmal atrial flutter/fibrillation status post cardioversion. 3. Hypertensive urgency. 4. Junctional rhythm. 5. History of mitral repair with Maze procedure from mitral regurgitation. 6. History of gastroesophageal reflux disease. 7. Hypertension. 8. History of degenerative joint disease. 9. History of MRSA. 10.History of hysterectomy. 11.Anemia, microcytic of undetermined etiology. RECOMMENDATIONS AND DISCUSSION: Recommend to continue current medication, continue to monitor. Symptomatic treatment. Otherwise, at this time, I recommend continue the current medication, continue symptomatic treatment and Coumadin 5 mg. Aspirin given. I would recommend monitor PT, INR closely and Lovenox bridging. The correctional counselor/case manager to arrange for the same and discussed with the patient. Understands and agrees. Further recommendations to follow. See orders for details. Continue the rest of the medications. MMODL / IJN: [id number] /
[2018-07-25] MEDS: PANTOPRAZOLE 40 MG TABLET PO SCH (06:28)
[2018-07-25 06:29] LABS: Basophils # (A) 0.1 k/uL (0-0.2); Basophils % (A) 1 %; Eosinophils # (A) 0.2 k/uL (0-0.7); Eosinophils % (A) 3 %; HCT 33.6 % (34.0-46.0); HGB 10.4 gm/dL (11.4-16.0); Hypochromasia Moderate; Lymphocytes # (A) 1.8 k/uL (1.0-4.8); Lymphocytes % (A) 35 %; MCV 77.5 fL (80.0-100.0); Microcytosis Slight; Monocytes # (A) 0.3 k/uL (0-1.0); Monocytes % (A) 6 %; Neutrophils # (A) 2.7 k/uL (1.3-7.7); Neutrophils % (A) 54 %; Platelet Count 223 k/uL (150-450); RBC 4.33 m/uL (3.80-5.40); RDW 15.8 % (11.5-15.5)
[2018-07-25 06:37] LABS: Prothrombin Time 10.8 sec (9.0-12.0)
[2018-07-25 06:51] LABS: Calcium 9.3 mg/dL (8.4-10.2); Potassium 4.1 mmol/L (3.5-5.1)
[2018-07-25 09:28] VITALS: PULSE 55; RESP 18
[2018-07-25] MEDS: ENOXAPARIN 80 MG/0.8 ML SYRINGE SQ SCH ×2 (09:38→18:03)
[2018-07-25] MEDS: MELOXICAM 7.5 MG TAB PO SCH (09:39)
[2018-07-25] MEDS: CALCIUM CARBONATE 500 MG CHEWABLE PO SCH (09:39)
[2018-07-25] MEDS: METOPROLOL SUCCINATE (ER) 25 MG TAB.ER.24H PO SCH (09:40)
[2018-07-25] MEDS: CHOLECALCIFEROL 1,000 UNIT TAB PO SCH (09:41)
[2018-07-25] MEDS: ASPIRIN 81 MG PO SCH (09:41)
[2018-07-25] MEDS: ACETAMINOPHEN TAB 325 MG TAB PO SCH (09:41)
--- NOTE | 2018-07-25 12:15 | P.PN ---
Subjective Progress Note Date: 07/25/18 This is a 73-year-old female with history of atrial regurgitation status post mitral valve repair as well as maze procedure done with Dr. garvey at the [facility] in November of last year, history of paroxysmal atrial fibrillation, GERD, she follows with Dr. Springer in the office. Patient presented to the hospital on this occasion with symptoms of palpitations and heart racing, she was found to be in typical atrial flutter with poorly controlled ventricular rate and subsequently went back into normal sinus rhythm. The patient was seen in consultation yesterday by Dr. Padgett. She is currently on Lovenox twice a day along with Coumadin. We did check to see if the patient has coverage for Lovenox, which she does, plan is to discharge her home today on Lovenox along with Coumadin, check PT/INR in 3 days, cardiology to follow. Follow-up appointment with Dr. Springer in one week or so. She was seen and examined this morning, she feels well, denies any palpitations, no chest discomfort. Blood pressure 136/60 with a heart rate of 60, 99% on room air. White blood cell count 5.0, hemoglobin 10.4, platelet count 223. Sodium 139, potassium 4.1, BUN 24 and creatinine 0.9. TSH level 3.2. Objective - Vital Signs Vital signs: Vital Signs Temp 97.5 F L 07/25/18 07:00 Pulse 55 L 07/25/18 07:00 Resp 18 07/25/18 07:00 BP 136/62 07/25/18 07:00 Pulse Ox 99 07/25/18 07:00 Intake & Output 07/24/18 07/25/18 07/25/18 18:59 06:59 18:59 Intake Total 722.8 240 Output Total 500 Balance 722.8 -500 240 Weight 88 kg Intake: Intake, IV Titration 260.8 Amount Heparin Sod,Pork in 0.45% 100.8 NaCl 25,000 unit In 0.45 % NaCl 1 250ml.bag @ 11.6 UNITS/KG/HR 9.99 mls/hr IV .Q24H ERENDIRA Rx#: [id number] Sodium Chloride 0.9% 1, 160 000 ml @ 20 mls/hr IV . Q24H ERENDIRA Rx#:[id number] Oral 462 240 Output: Urine 500 Other: # Voids 1 - Exam PHYSICAL EXAMINATION: GENERAL: 73-year-old female in no acute distress at the time of my examination HEENT: Head is atraumatic, normocephalic. Pupils equal, round. Sclera anicteric. Conjunctiva are clear. Mucous membranes of the mouth are moist. Neck is supple. There is no elevated jugular venous pressure. No carotid bruit is heard. HEART EXAMINATION: Heart S1 and S2 irregularly irregular, soft systolic murmur is heard CHEST EXAMINATION: Lungs are clear to auscultation and precussion. No chest wall tenderness is noted on palpation or with deep breathing. ABDOMEN: Soft, nontender. Bowel sounds are heard. No organomegaly noted. EXTREMITIES: 2+ peripheral pulses with no evidence of peripheral edema and no calf tenderness noted. NEUROLOGIC patient is awake, alert and oriented 3 . . - Labs CBC & Chem 7: 07/25/18 06:01 07/25/18 06:01 Labs: Abnormal Lab Results - Last 24 Hours (Table) 07/25/18 07/25/18 Range/Units 06:01 06:01 Hgb 10.4 L (11.4-16.0) gm/dL Hct 33.6 L (34.0-46.0) % MCV 77.5 L (80.0-100.0) fL MCH 24.0 L (25.0-35.0) pg RDW 15.8 H (11.5-15.5) % BUN 24 H (7-17) mg/dL Glucose 101 H (74-99) mg/dL Assessment and Plan Plan: Assessment and plan #1 paroxysmal atrial fibrillation #2 mitral regurg status post mitral valve repair in November of last year #3 hyperlipidemia Plan Echocardiogram with Doppler study revealed a normal left ventricular systolic function. Mitral ring annuloplasty is in place. Patient may be able to be discharged home today on Coumadin 5 mg daily, along with Lovenox as a bridge. We will check her PT/INR in 3 days, make a follow-up appointment with Dr. Springer in the office next week. DNP note has been reviewed, I agree with a documented findings and plan of care. Patient was seen and examined.
[2018-07-25] MEDS ORDERED: WARFARIN 7.5 MG TAB PO SCH (15:05)
[2018-07-25 15:25] VITALS: BP 169/78; TEMP 97.6
[2018-07-25] MEDS ORDERED: WARFARIN 5 MG TAB PO SCH (18:00)
--- NOTE | 2018-07-26 05:54 | DS ---
DISCHARGE SUMMARY DATE OF SERVICE: 07/25/2018 FINAL DIAGNOSES: 1. Atrial flutter with varying block with fast ventricular rate present on admission. 2. History of paroxysmal atrial flutter/fibrillation with status post cardioversion. 3. Hypertensive urgency. 4. Junctional rhythm. 5. History of mitral valve repair with Maze procedure for severe mitral regurgitation. 6. History of gastroesophageal reflux disease. 7. Hypertension. 8. History of degenerative joint disease. 9. History of MRSA. 10.History of hysterectomy. 11.Anemia microcytic of undetermined etiology. DISCHARGE DISPOSITION: The patient will be discharged in stable condition with guarded prognosis. HISTORY OF PRESENT ILLNESS: This 73-year-old woman with a past medical history of multiple medical problems, admitted with cardiac arrhythmia as detailed above. The patient is followed by Dr. Jessica Andersen in the outpatient setting. The patient was closely monitored by Cardiology. Decided to initiate Coumadin because of the history of atrial ablation associated with valvular pathology and Lovenox was used for bridging. PHYSICAL EXAMINATION: On exam, vital signs are stable. Cardiovascular: S1, S2. Abdomen soft. Nervous system: No focal deficits. Hemoglobin is 10.4. The patient was seen by cardiology who cleared the patient for discharge per Cardiology service. DISCHARGE ADVICE AND MEDICATIONS: 1. Diet is cardiac diet. 2. Activity limited until followup. 3. Follow up with Dr. Jessica Andersen in 2-3 days. 4. Follow up with Dr. Springer, Cardiology as advised. DISCHARGE MEDICATIONS: 1. Tylenol 650 daily p.r.n. 2. Ecotrin 81 mg. 3. Calcium 600 mg p.o. b.i.d. 4. Vitamin D3 1000 daily. 5. Glucosamine chondroitin 1 tablet p.o. daily. 6. Omeprazole 20 mg daily. 7. Zocor 20 mg q.h.s. 8. Valtrex 1000 mg p.r.n. 9. Lovenox 80 mg subcu b.i.d. for 4 days. 10.Toprol-XL 25 mg p.o. daily. 11.Coumadin 5 mg p.o. daily. 12.PT/INR Saturday and continue follow up with Cardiology. Once again, the patient is being discharged in stable condition with guarded prognosis. MMODL / IJN: [id number] /
== END 2018-07-25 18:10 | disposition home or self-care (01) ==
LOC: EC 11:40 → 3SCARD 16:27 → INTOOBSV 16:27
PROVIDERS: ADMIT Internal Medicine; ATTEND Internal Medicine
DX: I48.92 Unspecified atrial flutter (principal); I48.0 Paroxysmal atrial fibrillation; I16.0 Hypertensive urgency; K21.9 Gastro-esophageal reflux disease without esophagitis; I10 Essential (primary) hypertension; M19.90 Unspecified osteoarthritis, unspecified site; D50.9 Iron deficiency anemia, unspecified; R06.02 Shortness of breath; I34.0 Nonrheumatic mitral (valve) insufficiency; E78.5 Hyperlipidemia, unspecified; Z90.710 Acquired absence of both cervix and uterus; Z86.14 Personal history of Methicillin resistant Staphylococcus aureus infection; Z95.2 Presence of prosthetic heart valve; Z79.1 Long term (current) use of non-steroidal anti-inflammatories (NSAID); Z79.82 Long term (current) use of aspirin; Z79.899 Other long term (current) drug therapy; Z88.5 Allergy status to narcotic agent; Z88.8 Allergy status to other drugs, medicaments and biological substances; Z91.018 Allergy to other foods; Z85.828 Personal history of other malignant neoplasm of skin; Z82.49 Family history of ischemic heart disease and other diseases of the circulatory system; Z80.6 Family history of leukemia; Z81.8 Family history of other mental and behavioral disorders
CPT/HCPCS: 96366 ×2; 96372 ×2; 96376; 96361; 96365; 99291; 36415; 93005; 93306; 85379; 80053; 80048; 82550; 82553; 83735; 84443; 84484; 85025 ×3; 85610 ×2; 85730 ×2; 81003; 71046; G0378 ×4; J1644 ×2; J1650 ×2

== ENCOUNTER → 2018-07-28 | Outpatient (CLI) | payer MEDICARE ==
[2018-07-28 13:20] LABS: INR 2.1 (<1.2); Prothrombin Time 20.3 sec (9.0-12.0)
== END | disposition home or self-care (01) ==
LOC: LABWHC1 11:31
PROVIDERS: ATTEND Internal Medicine
DX: I48.0 Paroxysmal atrial fibrillation (principal); I48.92 Unspecified atrial flutter; I16.0 Hypertensive urgency
CPT/HCPCS: 36415; 85610

== ENCOUNTER 2018-09-13 14:28 | Inpatient (IN) | payer MEDICARE ==
[2018-09-13 15:42] LABS: INR 2.3 (<1.2)
[2018-09-13 15:43] LABS: Partial Thromboplastin Time 39.3 sec (22.0-30.0); Prothrombin Time 22.7 sec (9.0-12.0)
[2018-09-13 15:46] LABS: Albumin 3.9 g/dL (3.5-5.0); Calcium 9.3 mg/dL (8.4-10.2); Magnesium 1.8 mg/dL (1.6-2.3); Potassium 3.5 mmol/L (3.5-5.1); Total Protein 6.4 g/dL (6.3-8.2)
[2018-09-13 16:10] LABS: Anisocytosis Slight; Basophils % (A) 0 %; Eosinophils % (A) 0 %; HCT 33.4 % (34.0-46.0); HGB 10.7 gm/dL (11.4-16.0); Hypochromasia Slight; Lymphocytes # (A) 0.8 k/uL (1.0-4.8); Lymphocytes % (A) 12 %; MCH 24.6 pg (25.0-35.0); MCHC 32.1 g/dL (31.0-37.0); MCV 76.5 fL (80.0-100.0); Mean Platelet Volume 6.8; Microcytosis Slight; Monocytes # (A) 0.4 k/uL (0-1.0); Monocytes % (A) 6 %; Neutrophils # (A) 5.5 k/uL (1.3-7.7); Neutrophils % (A) 80 %; Platelet Count 213 k/uL (150-450); RBC 4.37 m/uL (3.80-5.40); RDW 16.2 % (11.5-15.5); WBC 6.9 k/uL (3.8-10.6)
--- NOTE | 2018-09-13 16:10 | ED ---
Arrhythmia/Palpitations HPI - General Chief Complaint: Arrhythmia/Palpitations Stated Complaint: elevated heart rate Time Seen by Provider: 09/13/18 15:02 Source: patient, RN notes reviewed, old records reviewed Mode of arrival: ambulatory Limitations: no limitations - History of Present Illness Initial Comments: This is a 73-year-old female history atrial fibrillation who presents today with complaints of recurrent atrial fibrillation. She states she noticed her heart rate was beating fast today she was able to find it was up to about 140 bpm at h ome today. She denies any overt chest pain fevers chills nausea vomiting sweats no overt shortness of breath this time. No other symptoms. He was admitted in the past MD Complaint: rapid heart beat, "heart racing", palpitations - Related Data Home Medications Medication Instructions Recorded Confirmed Acetaminophen [Tylenol Arthritis] 650 mg PO HS PRN 09/06/17 09/13/18 Aspirin EC [Ecotrin Low Dose] 81 mg PO DAILY 07/23/18 09/13/18 Calcium Carbonate [Calcium] 600 mg PO BID 07/23/18 09/13/18 Cholecalciferol [Vitamin D3] 1,000 unit PO DAILY 07/23/18 09/13/18 Glucosam/Michael-Msm1/C/Lamberto/Bosw 1 tab PO DAILY 07/23/18 09/13/18 [Glucosamine-Chondroitin Tablet] Simvastatin [Zocor] 20 mg PO HS 07/23/18 09/13/18 Amoxicillin 500 mg PO TID 09/13/18 09/13/18 Meloxicam [Mobic] 15 mg PO DAILY 09/13/18 09/13/18 Metoprolol Succinate (ER) [Toprol 12.5 mg PO DAILY 09/13/18 09/13/18 XL] Omeprazole 40 mg PO DAILY 09/13/18 09/13/18 Warfarin [Coumadin] 2.5 mg PO SUTUTHSA 09/13/18 09/13/18 Warfarin [Coumadin] 5 mg PO MOWEFR 09/13/18 09/13/18 amLODIPine [Norvasc] 2.5 mg PO DAILY 09/13/18 09/13/18 Allergies Allergy/AdvReac Type Severity Reaction Status Date / Time garlic Allergy Unknown Verified 09/13/18 16:37 onion Allergy Unknown Verified 09/13/18 16:37 oxycodone Allergy Unknown Verified 09/13/18 16:37 hydrocodone [From Vicodin] AdvReac nausea/ligh Verified 09/13/18 16:37 theaded propoxyphene AdvReac Unknown Verified 09/13/18 16:37 [From Darvocet-N] phenthyazines AdvReac Nausea & Uncoded 09/13/18 16:37 Vomiting Review of Systems ROS Statement: Those systems with pertinent positive or pertinent negative responses have been documented in the HPI. ROS Other: All systems not noted in ROS Statement are negative. Past Medical History Past Medical History: Atrial Fibrillation, Cancer, GERD/Reflux, Hyperlipidemia, Hypertension, Osteoarthritis (OA) Additional Past Medical History / Comment(s): "stress test showed weakness in heart muscle and leaking mitral valve", skin cancer History of Any Multi-Drug Resistant Organisms: MRSA Date of last positivie culture/infection: 10/08/16 MDRO Source:: TOE LEFT FOOT Past Surgical History: Cardiac Valve Replacement, Hysterectomy, Joint Replacement Additional Past Surgical History / Comment(s): TRIPLE ARTHRODESIS LEFT FOOT, SID CATARACT SURGERY, skin cancer removed from chest, rt knee replacement Past Anesthesia/Blood Transfusion Reactions: Previous Problems w/ Anesthesia Past Psychological History: No Psychological Hx Reported Smoking Status: Never smoker Past Alcohol Use History: None Reported Past Drug Use History: None Reported - Past Family History Father Family Medical History: Cancer Additional Family Medical History / Comment(s): LEUKEMIA Mother Family Medical History: Dementia, Hypertension General Exam - General Exam Comments Initial Comments: Is a well-developed well-nourished awake alert oriented 3 female Limitations: no limitations General appearance: alert, in no apparent distress Head exam: Present: atraumatic, normocephalic, normal inspection Eye exam: Present: normal appearance, PERRL, EOMI. Absent: scleral icterus, conjunctival injection, periorbital swelling ENT exam: Present: normal exam, mucous membranes moist Neck exam: Present: normal inspection. Absent: tenderness, meningismus, lymphadenopathy Respiratory exam: Present: normal lung sounds bilaterally. Absent: respiratory distress, wheezes, rales, rhonchi, stridor Cardiovascular Exam: Present: tachycardia, irregular rhythm. Absent: systolic murmur, diastolic murmur, rubs, gallop, clicks GI/Abdominal exam: Present: soft, normal bowel sounds. Absent: distended, tenderness, guarding, rebound, rigid Extremities exam: Present: normal inspection, full ROM, normal capillary refill. Absent: tenderness, pedal edema, joint swelling, calf tenderness Back exam: Present: normal inspection Neurological exam: Present: alert, oriented X3, CN II-XII intact Psychiatric exam: Present: normal affect, normal mood Skin exam: Present: warm, dry, intact, normal color. Absent: rash Course Vital Signs 09/13/18 14:41 Temperature 97.8 F Pulse Rate 163 H Respiratory 20 Rate Blood Pressure 102/75 O2 Sat by Pulse 98 Oximetry - Reevaluation(s) Reevaluation #1: 09/13/18 16:52 I did reevaluate patient several occasions she is getting some improvement in her heart rate. No chest pain no shortness breath no other symptoms at this time. Reevaluation #2: 09/13/18 16:52 rn case manager hospice was ordered for evaluation of dysrhythmia. Atrial fibrillation/flutter was noted with a rate of 1:30 mics exam. Was noted to be variable between 110 and 1 40 bpm. EKG Findings - EKG Results: EKG: interpreted by ERMD (Atrial fibrillation/flutter verbal AV block nonspecific ST configuration inferior and anteriorly. Weight was 126 QRS 72 QT/QTC 260/376) Medical Decision Making - Medical Decision Making I did discuss findings with patient she will require admission for evaluation by cardiology. I did discuss the case with Dr. Brown. Patient will be admitted - Lab Data Result diagrams: 09/13/18 15:16 09/13/18 15:16 Lab Results 09/13/18 09/13/18 09/13/18 Range/Units 15:16 15:16 15:16 WBC 6.9 (3.8-10.6) k/uL RBC 4.37 (3.80-5.40) m/uL Hgb 10.7 L (11.4-16.0) gm/dL Hct 33.4 L (34.0-46.0) % MCV 76.5 L (80.0-100.0) fL MCH 24.6 L (25.0-35.0) pg MCHC 32.1 (31.0-37.0) g/dL RDW 16.2 H (11.5-15.5) % Plt Count 213 (150-450) k/uL Neutrophils % 80 % Lymphocytes % 12 % Monocytes % 6 % Eosinophils % 0 % Basophils % 0 % Neutrophils # 5.5 (1.3-7.7) k/uL Lymphocytes # 0.8 L (1.0-4.8) k/uL Monocytes # 0.4 (0-1.0) k/uL Eosinophils # 0.0 (0-0.7) k/uL Basophils # 0.0 (0-0.2) k/uL Hypochromasia Slight Anisocytosis Slight Microcytosis Slight PT 22.7 H (9.0-12.0) sec INR 2.3 H (<1.2) APTT 39.3 H (22.0-30.0) sec Sodium 137 (137-145) mmol/L Potassium 3.5 (3.5-5.1) mmol/L Chloride 102 (98-107) mmol/L Carbon Dioxide 25 (22-30) mmol/L Anion Gap 10 mmol/L BUN 15 (7-17) mg/dL Creatinine 0.92 (0.52-1.04) mg/dL Est GFR (CKD-EPI)AfAm 71 (>60 ml/min/1.73 sqM) Est GFR (CKD-EPI)NonAf 61 (>60 ml/min/1.73 sqM) Glucose 105 H (74-99) mg/dL Calcium 9.3 (8.4-10.2) mg/dL Magnesium 1.8 (1.6-2.3) mg/dL Total Bilirubin 1.0 (0.2-1.3) mg/dL AST 19 (14-36) U/L ALT 32 (9-52) U/L Alkaline Phosphatase 84 (38-126) U/L Troponin I (0.000-0.034) ng/mL Total Protein 6.4 (6.3-8.2) g/dL Albumin 3.9 (3.5-5.0) g/dL 09/13/18 Range/Units 15:16 WBC (3.8-10.6) k/uL RBC (3.80-5.40) m/uL Hgb (11.4-16.0) gm/dL Hct (34.0-46.0) % MCV (80.0-100.0) fL MCH (25.0-35.0) pg MCHC (31.0-37.0) g/dL RDW (11.5-15.5) % Plt Count (150-450) k/uL Neutrophils % % Lymphocytes % % Monocytes % % Eosinophils % % Basophils % % Neutrophils # (1.3-7.7) k/uL Lymphocytes # (1.0-4.8) k/uL Monocytes # (0-1.0) k/uL Eosinophils # (0-0.7) k/uL Basophils # (0-0.2) k/uL Hypochromasia Anisocytosis Microcytosis PT (9.0-12.0) sec INR (<1.2) APTT (22.0-30.0) sec Sodium (137-145) mmol/L Potassium (3.5-5.1) mmol/L Chloride (98-107) mmol/L Carbon Dioxide (22-30) mmol/L Anion Gap mmol/L BUN (7-17) mg/dL Creatinine (0.52-1.04) mg/dL Est GFR (CKD-EPI)AfAm (>60 ml/min/1.73 sqM) Est GFR (CKD-EPI)NonAf (>60 ml/min/1.73 sqM) Glucose (74-99) mg/dL Calcium (8.4-10.2) mg/dL Magnesium (1.6-2.3) mg/dL Total Bilirubin (0.2-1.3) mg/dL AST (14-36) U/L ALT (9-52) U/L Alkaline Phosphatase (38-126) U/L Troponin I 0.041 H* (0.000-0.034) ng/mL Total Protein (6.3-8.2) g/dL Albumin (3.5-5.0) g/dL - Radiology Data Radiology results: report reviewed (I did review the imaging and report no acute findings), image reviewed Critical Care Time Critical Care Time: Yes Critical Care Time: 33 minutes critical care time which includes initial presentation with history physical labs x-rays multiple reevaluation the patient for response to therapy review of old charting that was available discussed with the main physician admission orders and documentation of the above Disposition Clinical Impression: Atrial fibrillation Disposition: ADMITTED IP TO THIS [facility] Condition: Stable Referrals: Jessica Andersen MD [Primary Care Provider] - 1-2 days
[2018-09-13] MEDS ORDERED: DILTIAZEM DRIP BOLUS FROM BAG 1 MG SOLN IV ONE (16:11)
--- NOTE | 2018-09-13 16:32 | XR ---
EXAMINATION TYPE: XR chest 2V DATE OF EXAM: 09/13/2018 COMPARISON: 07/23/2018 HISTORY: Shortness of breath TECHNIQUE: Frontal and lateral views of the chest are obtained. FINDINGS: There is a stable probable right apical granuloma. Pulmonary hyperinflation likely relates underlying COPD. Post operative changes are seen of the chest. Cardia mediastinal silhouette is mild ly enlarged. Chronic interstitial prominence is unchanged. IMPRESSION: Chronic findings with no acute cardiopulmonary process.
[2018-09-13] MEDS ORDERED: NALOXONE 0.4 MG/ML 1 ML VIAL IV PRN (16:54)
[2018-09-13] MEDS: DILTIAZEM 125 MG in SODIUM CHLORIDE 0.9% 100 ML IV SCH (18:08)
[2018-09-13] MEDS: WARFARIN 2.5 MG TAB PO SCH (18:58)
[2018-09-13] MEDS: ATORVASTATIN 10 MG TAB PO SCH (19:50)
[2018-09-13] MEDS: ACETAMINOPHEN TAB 325 MG TAB PO PRN (19:51)
[2018-09-13] MEDS: AMOXICILLIN 500 MG CAP PO SCH (19:51)
[2018-09-13] MEDS: CALCIUM CARBONATE 500 MG CHEWABLE PO SCH (19:51)
[2018-09-14] MEDS: PANTOPRAZOLE 40 MG TABLET PO SCH (06:26)
[2018-09-14 06:42] LABS: INR 2.6 (<1.2); Prothrombin Time 24.8 sec (9.0-12.0)
[2018-09-14] MEDS: AMOXICILLIN 500 MG CAP PO SCH (08:40)
[2018-09-14] MEDS: CHOLECALCIFEROL 1,000 UNIT TAB PO SCH (08:40)
[2018-09-14] MEDS: CALCIUM CARBONATE 500 MG CHEWABLE PO SCH ×2 (08:40→20:03)
[2018-09-14] MEDS: ASPIRIN 81 MG PO SCH (08:40)
[2018-09-14] MEDS: MELOXICAM 7.5 MG TAB PO SCH (08:40)
[2018-09-14] MEDS: METOPROLOL SUCCINATE (ER) 25 MG TAB.ER.24H PO SCH (08:40)
[2018-09-14] MEDS ORDERED: amLODIPine 2.5 MG TAB PO SCH (09:00)
[2018-09-14] MEDS ORDERED: NON-FORMULARY DRUG (Glucosam/Chon-Msm1/C/Mang/Bosw [Glucosamine-Chondroitin Tablet] 1 TAB) PO SCH (09:00)
[2018-09-14] MEDS ORDERED: AMIODARONE 360 MG in DEXTROSE 5% IN WATER 200 ML IV ONE ×2 (09:26)
[2018-09-14] MEDS ORDERED: DEXTROSE 5% IN WATER 100 ML with AMIODARONE 150 MG IV ONE (09:26)
--- NOTE | 2018-09-14 13:02 | P.HPIM ---
History of Present Illness Patient is a 73-year-old pleasant female came in with complaints of palpitations found to be in atrial fibrillation patient has a known history of atrial fibrillation. Patient is presently on Cardizem and amiodarone. Patient had a recent urinary tract infection with dysuria and increased urinary frequency patient was started on amoxicillin I don't have any urine cultures available will have to obtain it from PCPs office tomorrow. Patient's had fevers last night because of which I'm switching amoxicillin 2 Rocephin. Patient is on Coumadin and INR of around 2.6 which will be continued. Patient's amlodipine will be discontinued patient the denied any cough doesn't have any clinical pneumonia at this time. Patient in the past had a mitral valve replacement and even a maze procedure after which patient had the cardioversion as well for A. fib. The patient denied any chest pain at this time. I will obtain urine cultures but I do not expect them to be abnormal as patient was partially treated with amoxicillin. Review of Systems REVIEW OF SYSTEMS: CONSTITUTIONAL: No fever, no malaise, no fatigue. HEENT: No recent visual problems or hearing problems. Denied any sore throat. CARDIOVASCULAR: No chest pain, orthopnea, PND, PULMONARY: No shortness of breath, no cough, no hemoptysis. GASTROINTESTINAL: No diarrhea, no nausea, no vomiting, no abdominal pain. NEUROLOGICAL: No headaches, no weakness, no numbness. HEMATOLOGICAL: Denies any bleeding or petechiae. GENITOURINARY: As mentioned in HPI MUSCULOSKELETAL/RHEUMATOLOGICAL: Denies any joint pain, swelling, or any muscle pain. ENDOCRINE: Denies any polyuria or polydipsia. The rest of the 14-point review of systems is negative. Past Medical History Past Medical History: Atrial Fibrillation, Cancer, GERD/Reflux, Hyperlipidemia, Hypertension, Osteoarthritis (OA) Additional Past Medical History / Comment(s): "stress test showed weakness in heart muscle and leaking mitral valve", basal cell carcinoma skin cancer 15 years ago History of Any Multi-Drug Resistant Organisms: MRSA Date of last positivie culture/infection: 10/08/16 MDRO Source:: TOE LEFT FOOT Past Surgical History: Cardiac Valve Replacement, Hysterectomy, Joint Replacement Additional Past Surgical History / Comment(s): TRIPLE ARTHRODESIS LEFT FOOT, SID CATARACT SURGERY, skin cancer removed from chest, rt knee replacement. valve repair nov 19 2017 Past Anesthesia/Blood Transfusion Reactions: Previous Problems w/ Anesthesia Past Psychological History: No Psychological Hx Reported Smoking Status: Never smoker Past Alcohol Use History: None Reported Past Drug Use History: None Reported - Past Family History Father Family Medical History: Cancer Additional Family Medical History / Comment(s): LEUKEMIA Mother Family Medical History: Dementia, Hypertension Medications and Allergies Home Medications Medication Instructions Recorded Confirmed Type Acetaminophen [Tylenol Arthritis] 650 mg PO HS PRN 09/06/17 09/13/18 History Aspirin EC [Ecotrin Low Dose] 81 mg PO DAILY 07/23/18 09/13/18 History Calcium Carbonate [Calcium] 600 mg PO BID 07/23/18 09/13/18 History Cholecalciferol [Vitamin D3] 1,000 unit PO DAILY 07/23/18 09/13/18 History Glucosam/Michael-Msm1/C/Lamberto/Bosw 1 tab PO DAILY 07/23/18 09/13/18 History [Glucosamine-Chondroitin Tablet] Simvastatin [Zocor] 20 mg PO HS 07/23/18 09/13/18 History Amoxicillin 500 mg PO TID 09/13/18 09/13/18 History Meloxicam [Mobic] 15 mg PO DAILY 09/13/18 09/13/18 History Metoprolol Succinate (ER) [Toprol 12.5 mg PO DAILY 09/13/18 09/13/18 History XL] Omeprazole 40 mg PO DAILY 09/13/18 09/13/18 History Warfarin [Coumadin] 2.5 mg PO SUTUTHSA 09/13/18 09/13/18 History Warfarin [Coumadin] 5 mg PO MOWEFR 09/13/18 09/13/18 History amLODIPine [Norvasc] 2.5 mg PO DAILY 09/13/18 09/13/18 History Allergies Allergy/AdvReac Type Severity Reaction Status Date / Time garlic Allergy Unknown Verified 09/13/18 16:37 onion Allergy Unknown Verified 09/13/18 16:37 oxycodone Allergy Unknown Verified 09/13/18 16:37 hydrocodone [From Vicodin] AdvReac nausea/ligh Verified 09/13/18 16:37 theaded propoxyphene AdvReac Unknown Verified 09/13/18 16:37 [From Darvocet-N] phenthyazines AdvReac Nausea & Uncoded 09/13/18 16:37 Vomiting Physical Exam Vitals: Vital Signs Temp Pulse Pulse Resp BP BP Pulse Ox 09/14/18 08:35 98.3 F 116 H 18 111/63 93 L 09/14/18 07:07 94 L 09/14/18 03:06 120 H 18 09/14/18 03:05 99.7 F H 120 H 18 137/109 92 L 09/13/18 23:16 115 H 18 09/13/18 23:12 99.8 F H 115 H 18 103/76 90 L 09/13/18 21:01 99.5 F 09/13/18 20:33 101.3 F H 09/13/18 20:00 138 H 18 09/13/18 19:52 102.3 F H 138 H 18 139/107 92 L 09/13/18 19:10 97.9 F 133 H 16 136/87 94 L 09/13/18 18:12 120 H 18 106/85 94 L 09/13/18 17:30 121 H 20 130/80 94 L 09/13/18 16:45 112 H 18 129/90 93 L 09/13/18 16:00 115 H 09/13/18 15:30 117 H 09/13/18 15:00 121 H 09/13/18 14:41 97.8 F 163 H 20 102/75 98 Intake and Output 09/13/18 09/14/18 09/14/18 21:59 06:59 14:59 Intake Total 300 Output Total 0 Balance 300 Intake: Oral 300 Output: Urine 0 Other: Voiding Method # Voids Weight PHYSICAL EXAMINATION: GENERAL: The patient is alert and oriented x3, not in any acute distress. Well developed, well nourished. HEENT: Pupils are round and equally reacting to light. EOMI. No scleral icterus. No conjunctival pallor. Normocephalic, atraumatic. No pharyngeal erythema. No thyromegaly. CARDIOVASCULAR: S1 and S2 present. No murmurs, rubs, or gallops. Patient has irregularly irregular rhythm tachycardic PULMONARY: Chest is clear to auscultation, no wheezing or crackles. ABDOMEN: Soft, nontender, nondistended, normoactive bowel sounds. No palpable organomegaly. MUSCULOSKELETAL: No joint swelling or deformity. EXTREMITIES: No cyanosis, clubbing, or pedal edema. NEUROLOGICAL: Gross neurological examination did not reveal any focal deficits. SKIN: No rashes. Results CBC & Chem 7: 09/13/18 15:16 09/13/18 15:16 Labs: Abnormal Lab Results - Last 24 Hours (Table) 09/13/18 09/13/18 09/13/18 Range/Units 15:16 15:16 15:16 Hgb 10.7 L (11.4-16.0) gm/dL Hct 33.4 L (34.0-46.0) % MCV 76.5 L (80.0-100.0) fL MCH 24.6 L (25.0-35.0) pg RDW 16.2 H (11.5-15.5) % Lymphocytes # 0.8 L (1.0-4.8) k/uL PT 22.7 H (9.0-12.0) sec INR 2.3 H (<1.2) APTT 39.3 H (22.0-30.0) sec Glucose 105 H (74-99) mg/dL Troponin I (0.000-0.034) ng/mL 09/13/18 09/14/18 09/14/18 Range/Units 15:16 03:10 05:36 Hgb (11.4-16.0) gm/dL Hct (34.0-46.0) % MCV (80.0-100.0) fL MCH (25.0-35.0) pg RDW (11.5-15.5) % Lymphocytes # (1.0-4.8) k/uL PT 24.8 H (9.0-12.0) sec INR 2.6 H (<1.2) APTT (22.0-30.0) sec Glucose (74-99) mg/dL Troponin I 0.041 H* 0.051 H* (0.000-0.034) ng/mL Thrombosis Risk Factor Assmnt - Choose All That Apply Any of the Below Risk Factors Present?: Yes Each Factor Represents 1 point: Obesity (BMI >25) Other Risk Factors: Yes Each Risk Factor Represents 3 Points: Age 75 years or older Other congenital or acquired thrombophilia - If yes, enter type in comment: No Thrombosis Risk Factor Assessment Total Risk Factor Score: 4 Thrombosis Risk Factor Assessment Level: Moderate Risk Assessment and Plan Plan: -Atrial fibrillation with rapid and regular rate probably secondary to urinary tract infection patient is presently in a Medrol and Cardizem both of which will be continued amlodipine will be discontinued and patient will be can you done anticoagulation. Patient appears to have valvular A. fib. Patient had a valve replacement and mitral valve replacement in the past. -Sepsis possibly secondary to urinary tract infection I'll obtain a UA and urine cultures are don't expect them to be positive as patient was partially treated patient was started on Rocephin as patient the continued to have fevers in spite of being on amoxicillin for couple days. We will obtain the cultures and studies from her PCPs office -Gastric esophageal reflux disease -hyperlipidemia hypertension -Mildly elevated troponin secondary to A. fib
--- NOTE | 2018-09-14 13:09 | P.CRDCN ---
History of Present Illness History of present illness: This is a pleasant 73-year-old female past medical history significant for severe mitral regurgitation status post mitral ring annuloplasty and Maze procedure, nonischemic cardiomyopathy, chronic systolic heart failure with improvement since mitral valve repair, paroxysmal atrial fibrillation on long- term anticoagulation, dyslipidemia and hypertension. She follows in the office with Dr. Springer. We have been asked to see her in consultation secondary to atrial fibrillation with rapid ventricular response. She was diagnosed with a urinary tract infection last week Saturday and started on amoxicillin pending urine cultures. She checks her pulse oximeter and heart rate daily and Saturday morning when she checked she noted her heart rate was reading as 140. She denies feeling any palpitations, chest discomfort, shortness of breath or dizziness associated with this. Upon arrival she was noted to be in 2:1 atrial flutter with a rate of 126. She was initiated on a Cardizem drip. Blood pressure 111/63 heart rate 116. Laboratory data reviewed, WBC 6.9, hemoglobin 10.7, platelets 213, INR 2.6, sodium 137, potassium 3.5, creatinine 0.92, magnesium 1.8, troponin 0.041, 0.030 and 0.051. TSH 1.58. Current cardiac medications include Toprol 12.5 mg daily, amlodipine 2.5 mg daily, simvastatin 20 mg daily, Coumadin, aspirin 81 mg daily. She underwent cardiac cath eterization September 2017 revealed normal coronary arteries. Most recent echocardiogram obtained July 2018 reveals preserved left ventricular systolic function with ejection fraction 55-60%, paradoxical/dysynergistic septal wall motion consistent with postoperative status, mitral ring annuloplasty in place, mild TR and mild pulmonary hypertension with an RVSP of 38 mmHg. At the time of my exam: CONSTITUTIONAL: Denies fever. Denies chills. Generalized fatigue. EYES: Denies blurred vision. Denies vision changes. Denies eye pain. EARS, NOSE, MOUTH & THROAT: Denies headache. Denies sore throat. Denies ear pain. CARDIOVASCULAR: Denies chest pain. Denies shortness of breath. Denies orthopnea. Denies PND. Denies palpitations. RESPIRATORY: Denies cough. GASTROINTESTINAL: Denies abdominal pain. Denies diarrhea. Denies constipation. Denies nausea. Denies vomiting. MUSCULOSKELETAL: Denies myalgias. INTEGUMENTARY: Denies pruitis. Denies rash. NEUROLOGIC: Denies numbness. Denies tingling. Denies weakness. PSYCHIATRIC: Denies anxiety. Denies depression. ENDOCRINE: Denies fatigue. Denies weight change. Denies polydipsia. Denies polyurina. GENITOURINARY: Denies burning, hematuria or urgency with micturation. HEMATOLOGIC: Denies history of anemia. Denies bleeding. GENERAL: This is a 73-year-old female in no apparent distress at the time of my examination. HEENT: Head is atraumatic, normocephalic. Pupils are equal, round. Sclerae anicteric. Conjunctivae are clear. Mucous membranes of the mouth are moist. Neck is supple. There is no jugular venous distention. No carotid bruit is heard. LUNGS: Clear to auscultation no wheezes, rales or rhonchi. No chest wall tenderness is noted on palpation or with deep breathing. HEART: Irregular rate and rhythm with systolic ejection murmur at the base, no rubs or gallops. S1 and S2 heard. ABDOMEN: Soft, nontender. Bowel sounds are heard. No organomegaly noted. EXTREMITIES: No evidence of peripheral edema and no calf tenderness noted. VASCULAR: Radial and dorsalis pedis pulses palpated, no evidence of clubbing. NEUROLOGIC: Patient is awake, alert and oriented x3. ASSESSMENT Atrial flutter, typical 2:1 conduction with rapid ventricular response on admission Febrile illness History of paroxysmal atrial fibrillation on long-term anticoagulation with Coumadin History of severe mitral regurgitation status post mitral ring annuloplasty repair Hypertension Dyslipidemia PLAN Initiate on amiodarone bolus and drip in an attempt to convert to sinus mechanism. Recent echocardiogram obtained earlier this year has been reviewed and will not be repeated on this admission. TSH has been requested and is normal. If she does not convert with amiodarone, cardioversion will be considered. Further recommendations to follow. Thank you kindly for this consultation. Nurse Practitioner note has been reviewed, I agree with a documented findings and plan of care. Patient was seen and examined. Past Medical History Past Medical History: Atrial Fibrillation, Cancer, GERD/Reflux, Hyperlipidemia, Hypertension, Osteoarthritis (OA) Additional Past Medical History / Comment(s): "stress test showed weakness in heart muscle and leaking mitral valve", basal cell carcinoma skin cancer 15 years ago History of Any Multi-Drug Resistant Organisms: MRSA Date of last positivie culture/infection: 10/08/16 MDRO Source:: TOE LEFT FOOT Past Surgical History: Cardiac Valve Replacement, Hysterectomy, Joint Replacement Additional Past Surgical History / Comment(s): TRIPLE ARTHRODESIS LEFT FOOT, SID CATARACT SURGERY, skin cancer removed from chest, rt knee replacement. valve repair nov 19 2017 Past Anesthesia/Blood Transfusion Reactions: Previous Problems w/ Anesthesia Past Psychological History: No Psychological Hx Reported Smoking Status: Never smoker Past Alcohol Use History: None Reported Past Drug Use History: None Reported - Past Family History Father Family Medical History: Cancer Additional Family Medical History / Comment(s): LEUKEMIA Mother Family Medical History: Dementia, Hypertension Medications and Allergies Home Medications Medication Instructions Recorded Confirmed Type Acetaminophen [Tylenol Arthritis] 650 mg PO HS PRN 09/06/17 09/13/18 History Aspirin EC [Ecotrin Low Dose] 81 mg PO DAILY 07/23/18 09/13/18 History Calcium Carbonate [Calcium] 600 mg PO BID 07/23/18 09/13/18 History Cholecalciferol [Vitamin D3] 1,000 unit PO DAILY 07/23/18 09/13/18 History Glucosam/Michael-Msm1/C/Lamberto/Bosw 1 tab PO DAILY 07/23/18 09/13/18 History [Glucosamine-Chondroitin Tablet] Simvastatin [Zocor] 20 mg PO HS 07/23/18 09/13/18 History Amoxicillin 500 mg PO TID 09/13/18 09/13/18 History Meloxicam [Mobic] 15 mg PO DAILY 09/13/18 09/13/18 History Metoprolol Succinate (ER) [Toprol 12.5 mg PO DAILY 09/13/18 09/13/18 History XL] Omeprazole 40 mg PO DAILY 09/13/18 09/13/18 History Warfarin [Coumadin] 2.5 mg PO SUTUTHSA 09/13/18 09/13/18 History Warfarin [Coumadin] 5 mg PO MOWEFR 09/13/18 09/13/18 History amLODIPine [Norvasc] 2.5 mg PO DAILY 09/13/18 09/13/18 History Allergies Allergy/AdvReac Type Severity Reaction Status Date / Time garlic Allergy Unknown Verified 09/13/18 16:37 onion Allergy Unknown Verified 09/13/18 16:37 oxycodone Allergy Unknown Verified 09/13/18 16:37 hydrocodone [From Vicodin] AdvReac nausea/ligh Verified 09/13/18 16:37 theaded propoxyphene AdvReac Unknown Verified 09/13/18 16:37 [From Darvocet-N] phenthyazines AdvReac Nausea & Uncoded 09/13/18 16:37 Vomiting Physical Exam Vitals: Vital Signs Temp Pulse Pulse Resp BP BP Pulse Ox 09/14/18 08:35 98.3 F 116 H 18 111/63 93 L 09/14/18 07:07 94 L 09/14/18 03:06 120 H 18 09/14/18 03:05 99.7 F H 120 H 18 137/109 92 L 09/13/18 23:16 115 H 18 09/13/18 23:12 99.8 F H 115 H 18 103/76 90 L 09/13/18 21:01 99.5 F 09/13/18 20:33 101.3 F H 09/13/18 20:00 138 H 18 09/13/18 19:52 102.3 F H 138 H 18 139/107 92 L 09/13/18 19:10 97.9 F 133 H 16 136/87 94 L 09/13/18 18:12 120 H 18 106/85 94 L 09/13/18 17:30 121 H 20 130/80 94 L 09/13/18 16:45 112 H 18 129/90 93 L 09/13/18 16:00 115 H 09/13/18 15:30 117 H 09/13/18 15:00 121 H 09/13/18 14:41 97.8 F 163 H 20 102/75 98 Intake and Output 09/13/18 09/14/18 09/14/18 21:59 06:59 14:59 Intake Total 300 Output Total 0 Balance 300 Intake: Oral 300 Output: Urine 0 Other: Voiding Method # Voids Weight Results 09/13/18 15:16 09/13/18 15:16 Cardiac Enzymes 09/13/18 09/13/18 09/13/18 Range/Units 15:16 15:16 20:23 AST 19 (14-36) U/L Troponin I 0.041 H* 0.030 (0.000-0.034) ng/mL 09/14/18 Range/Units 03:10 AST (14-36) U/L Troponin I 0.051 H* (0.000-0.034) ng/mL Coagulation 09/13/18 09/14/18 Range/Units 15:16 05:36 PT 22.7 H 24.8 H (9.0-12.0) sec APTT 39.3 H (22.0-30.0) sec CBC 09/13/18 Range/Units 15:16 WBC 6.9 (3.8-10.6) k/uL RBC 4.37 (3.80-5.40) m/uL Hgb 10.7 L (11.4-16.0) gm/dL Hct 33.4 L (34.0-46.0) % Plt Count 213 (150-450) k/uL Comprehensive Metabolic Panel 09/13/18 Range/Units 15:16 Sodium 137 (137-145) mmol/L Potassium 3.5 (3.5-5.1) mmol/L Chloride 102 (98-107) mmol/L Carbon Dioxide 25 (22-30) mmol/L BUN 15 (7-17) mg/dL Creatinine 0.92 (0.52-1.04) mg/dL Glucose 105 H (74-99) mg/dL Calcium 9.3 (8.4-10.2) mg/dL AST 19 (14-36) U/L ALT 32 (9-52) U/L Alkaline Phosphatase 84 (38-126) U/L Total Protein 6.4 (6.3-8.2) g/dL Albumin 3.9 (3.5-5.0) g/dL Current Medications Generic Name Dose Route Start Last Admin Trade Name Freq PRN Reason Stop Dose Admin Acetaminophen 650 mg 09/13/18 16:56 09/13/18 19:51 Tylenol Tab PO 650 mg HS PRN Administration Pain Aspirin 81 mg 09/14/18 09:00 09/14/18 08:40 Aspirin PO 81 mg DAILY ERENDIRA Administration Atorvastatin Calcium 10 mg 09/13/18 21:00 09/13/18 19:50 Lipitor PO 10 mg HS ERENDIRA Administration Calcium Carbonate/Glycine 500 mg 09/13/18 21:00 09/14/18 08:40 Tums PO 500 mg BID ERENDIRA Administration Cholecalciferol 1,000 unit 09/14/18 09:00 09/14/18 08:40 Vitamin D3 PO 1,000 unit DAILY ERENDIRA Administration Diltiazem HCl 125 mg/ Sodium 125 mls @ 5 mls/hr 09/13/18 16:15 09/13/18 18:08 Chloride IV 5 mg/hr .Q24H ERENDIRA 5 mls/hr Administration 5 MG/HR Amiodarone HCl 360 mg/ 200 mls @ 33.333 mls/hr 09/14/18 09:26 09/14/18 10:33 Dextrose/Water IV 09/14/18 15:25 1 mg/min .Q6H ONE 33.333 mls/hr Administration Protocol 1 MG/MIN Amiodarone HCl 300 mg/ 250 mls @ 25 mls/hr 09/14/18 15:27 Dextrose/Water IV 09/15/18 09:26 .Q10H ERENDIRA Protocol 0.5 MG/MIN Ceftriaxone Sodium 1 gm/ 50 mls @ 100 mls/hr 09/14/18 13:00 Sodium Chloride IVPB Q24HR [facility] Meloxicam 15 mg 09/14/18 09:00 09/14/18 08:40 Mobic PO 15 mg DAILY [facility] Administration Metoprolol Succinate 12.5 mg 09/14/18 09:00 09/14/18 08:40 Toprol Xl PO 12.5 mg DAILY [facility] Administration Naloxone HCl 0.2 mg 09/13/18 16:54 Narcan IV Q2M PRN Opioid Reversal Pantoprazole Sodium 40 mg 09/14/18 07:30 09/14/18 06:26 Protonix PO 40 mg AC-BRKFST [facility] Administration Warfarin Sodium 5 mg 09/15/18 18:00 Coumadin PO MOWEFR [facility] Warfarin Sodium 2.5 mg 09/13/18 18:00 09/13/18 18:58 Coumadin PO 2.5 mg SUTUTHSA [facility] Administration Intake and Output 09/13/18 09/14/18 09/14/18 21:59 06:59 14:59 Intake Total 300 Output Total 0 Balance 300 Intake: Oral 300 Output: Urine 0 Other: Voiding Method # Voids Weight 09/13/18 15:16 09/13/18 15:16
[2018-09-14] MEDS: AMIODARONE 300 MG in DEXTROSE 5% IN WATER 250 ML IV SCH ×2 (16:53)
[2018-09-14] MEDS: DILTIAZEM 125 MG in SODIUM CHLORIDE 0.9% 100 ML IV SCH (16:56)
[2018-09-14] MEDS: WARFARIN 2.5 MG TAB PO SCH (17:33)
[2018-09-14 17:55] LABS: Appearance,Urine Cloudy (Clear); Bilirubin,Urine Negative (Negative); Blood,Urine Moderate (Negative); Color,Urine Yellow; Glucose,Urine (UA) Negative (Negative); Ketones,Urine Negative (Negative); Leukocyte Esterase,Urine Large (Negative); Mucus,Urine Few /hpf; Nitrite,Urine Negative (Negative); PH, Urine 5.5 (5.0-8.0); Protein,Urine 1+ (Negative); RBC,Urine 29 /hpf (0-5); Specific Gravity,Urine 1.013 (1.001-1.035); Squamous Epithelial Cell,Urine 1 /hpf (0-4); Urobilinogen,Urine <2.0 mg/dL (<2.0)
[2018-09-14] MEDS: ACETAMINOPHEN TAB 325 MG TAB PO PRN (18:08)
[2018-09-14] MEDS: ATORVASTATIN 10 MG TAB PO SCH (20:03)
[2018-09-15] MEDS: AMIODARONE 300 MG in DEXTROSE 5% IN WATER 250 ML IV SCH ×2 (03:43)
[2018-09-15] MEDS: PANTOPRAZOLE 40 MG TABLET PO SCH (06:12)
[2018-09-15 06:42] LABS: Anisocytosis Slight; HGB 9.9 gm/dL (11.4-16.0); Hypochromasia Slight; MCH 25.1 pg (25.0-35.0); MCHC 32.8 g/dL (31.0-37.0); MCV 76.3 fL (80.0-100.0); Mean Platelet Volume 6.6; Microcytosis Slight; Platelet Count 186 k/uL (150-450); RBC 3.94 m/uL (3.80-5.40); RDW 16.2 % (11.5-15.5); WBC 5.2 k/uL (3.8-10.6)
[2018-09-15 06:48] LABS: INR 2.6 (<1.2); Prothrombin Time 25.4 sec (9.0-12.0)
[2018-09-15 06:51] LABS: Anion Gap 7 mmol/L; Blood Urea Nitrogen 14 mg/dL (7-17); Calcium 8.6 mg/dL (8.4-10.2); Carbon Dioxide 25 mmol/L (22-30); Chloride 102 mmol/L (98-107); Glucose 130 mg/dL (74-99); Magnesium 1.7 mg/dL (1.6-2.3); Potassium 3.6 mmol/L (3.5-5.1); Sodium 134 mmol/L (137-145)
[2018-09-15] MEDS: MELOXICAM 7.5 MG TAB PO SCH (09:48)
[2018-09-15] MEDS: ASPIRIN 81 MG PO SCH (09:48)
[2018-09-15] MEDS: CALCIUM CARBONATE 500 MG CHEWABLE PO SCH ×2 (09:48→19:26)
[2018-09-15] MEDS: METOPROLOL SUCCINATE (ER) 25 MG TAB.ER.24H PO SCH ×2 (09:48→19:26)
[2018-09-15] MEDS: CHOLECALCIFEROL 1,000 UNIT TAB PO SCH (09:48)
[2018-09-15] MEDS ORDERED: SODIUM CHLORIDE 0.9% 1,000 ML IV SCH (12:00)
[2018-09-15] MEDS ORDERED: LIDOCAINE 1% INJ 10MG/ML (20 ML MDV) ONE (12:28)
[2018-09-15] MEDS ORDERED: PROPOFOL 10 MG/ML 20 ML VIAL IV ONE (12:28)
[2018-09-15] MEDS: BENZOCAINE SPRAY 1 CAN MUCOUS MEM ONE ×2 (12:30→12:35)
--- NOTE | 2018-09-15 13:04 | P.PN ---
Subjective Progress Note Date: 09/15/18 This is a pleasant 73-year-old female past medical history significant for severe mitral regurgitation status post mitral ring annuloplasty and Maze procedure, nonischemic cardiomyopathy, chronic systolic heart failure with improvement since mitral valve repair, paroxysmal atrial fibrillation on long- term anticoagulation, dyslipidemia and hypertension. She follows in the office with Dr. Springer. We have been asked to see her in consultation secondary to atrial fibrillation with rapid ventricular response. She was diagnosed with a urinary tract infection last week Saturday and started on amoxicillin pending urine cultures. She checks her pulse oximeter and heart rate daily and Saturday morning when she checked she noted her heart rate was reading as 140. She denies feeling any palpitations, chest discomfort, shortness of breath or dizziness associated with this. Upon arrival she was noted to be in 2:1 atrial flutter with a rate of 126. 09/15/2018 Patient was initiated on amiodarone, and in spite of that continued to have heart rates in the 1:30 range. For this reason she was advised this morning to undergo HASMUKH and elective cardioversion. The risks and the benefits were explained to the patient in detail. This will be performed later today by Dr. Springer. Objective - Vital Signs Vital signs: Vital Signs Temp 98.7 F 09/15/18 11:53 Pulse 138 H 09/15/18 12:17 Resp 16 09/15/18 12:17 BP 134/89 09/15/18 12:17 Pulse Ox 90 L 09/15/18 12:17 Intake & Output 09/14/18 09/15/18 09/15/18 18:59 06:59 18:59 Intake Total 649 790 Output Total 0 500 Balance 649 290 Weight 89.9 kg Intake: Intake, IV Titration 109 250 Amount Amiodarone 300 mg In 250 Dextrose 5% in Water 250 ml @ 0.5 MG/MIN 25 mls/hr IV .Q10H ERENDIRA Rx#: [id number] Diltiazem 125 mg In 109 Sodium Chloride 0.9% 100 ml @ 5 MG/HR 5 mls/hr IV .Q24H ERENDIRA Rx#:[id number] Oral 540 540 Output: Urine 0 500 Other: Voiding Method Toilet Toilet # Voids 1 1 - Exam HEENT: Head is atraumatic, normocephalic. Pupils are equal, round. Sclerae anicteric. Conjunctivae are clear. Mucous membranes of the mouth are moist. Neck is supple. There is no jugular venous distention. No carotid bruit is heard. LUNGS: Clear to auscultation no wheezes, rales or rhonchi. No chest wall tenderness is noted on palpation or with deep breathing. HEART: Irregular rate and rhythm with systolic ejection murmur at the base, no rubs or gallops. S1 and S2 heard. ABDOMEN: Soft, nontender. Bowel sounds are heard. No organomegaly noted. EXTREMITIES: No evidence of peripheral edema and no calf tenderness noted. VASCULAR: Radial and dorsalis pedis pulses palpated, no evidence of clubbing. NEUROLOGIC: Patient is awake, alert and oriented x3. - Labs CBC & Chem 7: 09/15/18 05:58 09/15/18 05:58 Labs: Abnormal Lab Results - Last 24 Hours (Table) 09/14/18 09/15/18 09/15/18 Range/Units Unknown 05:58 05:58 Hgb 9.9 L (11.4-16.0) gm/dL Hct 30.0 L (34.0-46.0) % MCV 76.3 L (80.0-100.0) fL RDW 16.2 H (11.5-15.5) % PT 25.4 H (9.0-12.0) sec INR 2.6 H (<1.2) Sodium (137-145) mmol/L Glucose (74-99) mg/dL Urine Appearance Cloudy H (Clear) Urine Protein 1+ H (Negative) Urine Blood Moderate H (Negative) Ur Leukocyte Esterase Large H (Negative) Urine RBC 29 H (0-5) /hpf Urine WBC >182 H (0-5) /hpf Urine Mucus Few H (None) /hpf 09/15/18 Range/Units 05:58 Hgb (11.4-16.0) gm/dL Hct (34.0-46.0) % MCV (80.0-100.0) fL RDW (11.5-15.5) % PT (9.0-12.0) sec INR (<1.2) Sodium 134 L (137-145) mmol/L Glucose 130 H (74-99) mg/dL Urine Appearance (Clear) Urine Protein (Negative) Urine Blood (Negative) Ur Leukocyte Esterase (Negative) Urine RBC (0-5) /hpf Urine WBC (0-5) /hpf Urine Mucus (None) /hpf Microbiology - Last 24 Hours (Table) 09/14/18 Unknown Urine Culture - Preliminary Urine,Voided Assessment and Plan Plan: ASSESSMENT #1Atrial flutter, typical 2:1 conduction with rapid ventricular response on admission #2Febrile illness #3History of paroxysmal atrial fibrillation on long-term anticoagulation with Coumadin #4History of severe mitral regurgitation status post mitral ring annuloplasty repair #5Hypertension #6Dyslipidemia Plan Patient will be scheduled today to undergo HASMUKH and cardioversion. The risks and the benefits were explained to the patient in detail and she is willing to proceed. DNP note has been reviewed, I agree with a documented findings and plan of care. Patient was seen and examined.
--- NOTE | 2018-09-15 13:14 | ECHOT ---
TRANSESOPHAGEAL ECHOCARDIOGRAM INDICATION: Evaluation of left atrium. PROCEDURE: After explaining the procedure to the patient, its risks and the complication, blood pressure, heart rate, O2 saturation was monitored. The throat was sprayed with Cetacaine. She received sedation per anesthesia department. The probe was introduced into the esophagus without difficulty. Images were obtained. Following that, the probe was removed. There was no immediate complication. FINDINGS: Biatrial enlargement was noted. Left atrial appendage was closed. Left ventricular size and systolic function are normal. The mitral valve shows evidence of annuloplasty. The tricuspid valve and aortic valve are normal. Descending thoracic aorta appears normal appears to be normal. No pericardial effusion was noted. Contrast bubble study revealed no evidence of shunting across the interatrial septum. Doppler pulse wave and color Doppler obtained revealed mild to moderate tricuspid regurgitation with no evidence of mitral regurgitation. There was no shunting by color Doppler study. CONCLUSION: 1. Biatrial enlargement with closure of the left atrial appendage. 2. Normal left ventricular size and systolic function. 3. Evidence of mitral valve annuloplasty with no evidence of regurgitation. 4. Mild to moderate tricuspid regurgitation with mild pulmonary hypertension with an estimated right ventricular systolic pressure of 45 mmHg. 5. Normal appearance of the descending thoracic aorta. 6. No shunting across the interatrial septum. MMODL / IJN: [id number] /
--- NOTE | 2018-09-15 13:17 | CE ---
CARDIAC ELECTROPHYSIOLOGY REPORT CARDIOVERSION PROCEDURE NOTE: INDICATION: Atrial fibrillation. PROCEDURE: After explaining the procedure to the patient, its risks and the complications after obtaining sedated state per the anesthesia department and performed a transesophageal echocardiogram, a synchronized biphasic cardioversion using 200 joules was performed with scientologist of sinus mechanism with episode of junctional rhythm. There was no immediate complication. DAYANA / MARGARITAN: [id number] /
--- NOTE | 2018-09-15 13:47 | P.PN ---
Subjective 73-year-old pleasant female was admitted for atrial fibrillation with rapid ventricular rate patient underwent cardioversion today patient is presently sinus rhythm will be monitored patient is also being treated for urinary tract infection which was diagnosed as an outpatient in Dr. Andersen's clinic. We will obtain cultures and sensitivity results from the clinic. Continue empiric Rocephin for now patient is afebrile. Urine does look abnormal and do not expect cultures to be positive as patient was partially treated with ampicillin as an outpatient. Constitutional: Denied any fatigue denied any fever. Cardio vascular: denied any chest pain, palpitations Gastrointestinal denied any nausea vomiting Pulmonary: Denied any shortness of breath cough Neurologic denied any new focal deficits All inpatient medications were reviewed and appropriate changes in these medications as dictated in the interval history and assessment and plan. Objective - Vital Signs Vital signs: Vital Signs Temp 98.7 F 09/15/18 11:53 Pulse 61 09/15/18 13:20 Resp 16 09/15/18 13:20 BP 110/57 09/15/18 13:20 Pulse Ox 93 L 09/15/18 13:20 Intake & Output 09/14/18 09/15/18 09/15/18 18:59 06:59 18:59 Intake Total 649 790 Output Total 0 500 Balance 649 290 Weight 89.9 kg Intake: Intake, IV Titration 109 250 Amount Amiodarone 300 mg In 250 Dextrose 5% in Water 250 ml @ 0.5 MG/MIN 25 mls/hr IV .Q10H ERENDIRA Rx#: [id number] Diltiazem 125 mg In 109 Sodium Chloride 0.9% 100 ml @ 5 MG/HR 5 mls/hr IV .Q24H ERENDIRA Rx#:[id number] Oral 540 540 Output: Urine 0 500 Other: Voiding Method Toilet Toilet # Voids 1 1 - Exam PHYSICAL EXAMINATION: GENERAL: The patient is alert and oriented x3, not in any acute distress. Well developed, well nourished. HEENT: Pupils are round and equally reacting to light. EOMI. No scleral icterus. No conjunctival pallor. Normocephalic, atraumatic. No pharyngeal erythema. No thyromegaly. CARDIOVASCULAR: S1 and S2 present. No murmurs, rubs, or gallops. PULMONARY: Chest is clear to auscultation, no wheezing or crackles. ABDOMEN: Soft, nontender, nondistended, normoactive bowel sounds. No palpable organomegaly. MUSCULOSKELETAL: No joint swelling or deformity. EXTREMITIES: No cyanosis, clubbing, or pedal edema. NEUROLOGICAL: Gross neurological examination did not reveal any focal deficits. SKIN: No rashes. - Labs CBC & Chem 7: 09/15/18 05:58 09/15/18 05:58 Labs: Abnormal Lab Results - Last 24 Hours (Table) 09/14/18 09/15/18 09/15/18 Range/Units Unknown 05:58 05:58 Hgb 9.9 L (11.4-16.0) gm/dL Hct 30.0 L (34.0-46.0) % MCV 76.3 L (80.0-100.0) fL RDW 16.2 H (11.5-15.5) % PT 25.4 H (9.0-12.0) sec INR 2.6 H (<1.2) Sodium (137-145) mmol/L Glucose (74-99) mg/dL Urine Appearance Cloudy H (Clear) Urine Protein 1+ H (Negative) Urine Blood Moderate H (Negative) Ur Leukocyte Esterase Large H (Negative) Urine RBC 29 H (0-5) /hpf Urine WBC >182 H (0-5) /hpf Urine Mucus Few H (None) /hpf 09/15/18 Range/Units 05:58 Hgb (11.4-16.0) gm/dL Hct (34.0-46.0) % MCV (80.0-100.0) fL RDW (11.5-15.5) % PT (9.0-12.0) sec INR (<1.2) Sodium 134 L (137-145) mmol/L Glucose 130 H (74-99) mg/dL Urine Appearance (Clear) Urine Protein (Negative) Urine Blood (Negative) Ur Leukocyte Esterase (Negative) Urine RBC (0-5) /hpf Urine WBC (0-5) /hpf Urine Mucus (None) /hpf Microbiology - Last 24 Hours (Table) 09/14/18 Unknown Urine Culture - Preliminary Urine,Voided Assessment and Plan Plan: -Atrial fibrillation with rapid and regular rate probably secondary to urinary tract infection patient is presently in a amiodarone and Cardizem was discontinued patient is presently sinus rhythm after cardioversion, Patient appears to have valvular A. fib. Patient had a valve replacement and mitral valve replacement in the past. -Sepsis possibly secondary to urinary tract infection, continue with Rocephin obtain culture sensitivity results from PCPs office -Gastric esophageal reflux disease -hyperlipidemia hypertension -Mildly elevated troponin secondary to A. fib
[2018-09-15] MEDS: SODIUM CHLORIDE 0.9% 1,000 ML IV SCH (15:40)
[2018-09-15] MEDS: WARFARIN 5 MG TAB PO SCH (17:29)
[2018-09-15] MEDS: ATORVASTATIN 10 MG TAB PO SCH (19:26)
[2018-09-16] MEDS: DILTIAZEM 125 MG in SODIUM CHLORIDE 0.9% 100 ML IV SCH ×2 (00:11→12:23)
[2018-09-16] MEDS: PANTOPRAZOLE 40 MG TABLET PO SCH (05:58)
[2018-09-16 06:39] LABS: INR 3.7 (<1.2); Prothrombin Time 35.3 sec (9.0-12.0)
[2018-09-16] MEDS: METOPROLOL SUCCINATE (ER) 25 MG TAB.ER.24H PO SCH ×2 (09:14→21:19)
[2018-09-16] MEDS: CALCIUM CARBONATE 500 MG CHEWABLE PO SCH ×2 (09:14→21:19)
[2018-09-16] MEDS: CHOLECALCIFEROL 1,000 UNIT TAB PO SCH (09:14)
[2018-09-16] MEDS: MELOXICAM 7.5 MG TAB PO SCH (09:14)
[2018-09-16] MEDS: SODIUM CHLORIDE 0.9% 1,000 ML IV SCH (15:36)
--- NOTE | 2018-09-16 15:59 | P.PN ---
Subjective Progress Note Date: 09/16/18 This is a pleasant 73-year-old female past medical history significant for severe mitral regurgitation status post mitral ring annuloplasty and Maze procedure, nonischemic cardiomyopathy, chronic systolic heart failure with improvement since mitral valve repair, paroxysmal atrial fibrillation on long- term anticoagulation, dyslipidemia and hypertension. She follows in the office with Dr. Springer. We have been asked to see her in consultation secondary to atrial fibrillation with rapid ventricular response. She was diagnosed with a urinary tract infection last week Saturday and started on amoxicillin pending urine cultures. She checks her pulse oximeter and heart rate daily and Saturday morning when she checked she noted her heart rate was reading as 140. She denies feeling any palpitations, chest discomfort, shortness of breath or dizziness associated with this. Upon arrival she was noted to be in 2:1 atrial flutter with a rate of 126. 09/15/2018 Patient was initiated on amiodarone, and in spite of that continued to have heart rates in the 1:30 range. For this reason she was advised this morning to undergo HASMUKH and elective cardioversion. The risks and the benefits were explained to the patient in detail. This will be performed later today by Dr. Springer. 09/16/2018 Patient did undergo a HASMUKH with cardioversion yesterday, post cardioversion she was in a junctional rhythm, sinus bradycardia. Throughout the night last night patient went back into atrial fibrillation, was read started on a Cardizem drip and continues to be in atrial fibrillation this morning. Dr. Carmona did have a lengthy discussion with the patient regarding the next plan would be, the decision was made to consult with Dr. Wells. Objective - Vital Signs Vital signs: Vital Signs Temp 97.6 F 09/16/18 09:10 Pulse 83 09/16/18 12:20 Resp 18 09/16/18 12:20 BP 110/65 09/16/18 12:20 Pulse Ox 94 L 09/16/18 12:20 Intake & Output 09/15/18 09/16/18 09/16/18 18:59 06:59 18:59 Intake Total 820 032 6739 Output Total 600 1200 Balance 870 -280 -154 Weight 63.6 kg Intake: IV 510 320 Amiodarone 360 mg In 200 Dextrose 5% in Water 200 ml @ 1 MG/MIN 33.333 mls/ hr IV .Q6H [facility] Rx#: [id number] Diltiazem 125 mg In 100 Sodium Chloride 0.9% 100 ml @ 5 MG/HR 5 mls/hr IV .Q24H [facility] Rx#:[id number] Sodium Chloride 0.9% 1, 160 320 000 ml @ 20 mls/hr IV . Q24H [facility] Rx#:[id number] cefTRIAXone 1 gm In 50 Sodium Chloride 0.9% 50 ml @ 100 mls/hr IVPB Q24HR [facility] Rx#:[id number] Intake, IV Titration 122 Amount Diltiazem 125 mg In 122 Sodium Chloride 0.9% 100 ml @ 10 MG/HR 10 mls/hr IV .[id number] [facility] Rx#: [id number] Oral 360 924 Output: Urine 600 1200 Other: Voiding Method Toilet Toilet # Voids 2 2 # Bowel Movements 1 - Exam HEENT: Head is atraumatic, normocephalic. Pupils are equal, round. Sclerae anicteric. Conjunctivae are clear. Mucous membranes of the mouth are moist. Neck is supple. There is no jugular venous distention. No carotid bruit is heard. LUNGS: Clear to auscultation no wheezes, rales or rhonchi. No chest wall tenderness is noted on palpation or with deep breathing. HEART: Irregular rate and rhythm with systolic ejection murmur at the base, no rubs or gallops. S1 and S2 heard. ABDOMEN: Soft, nontender. Bowel sounds are heard. No organomegaly noted. EXTREMITIES: No evidence of peripheral edema and no calf tenderness noted. VASCULAR: Radial and dorsalis pedis pulses palpated, no evidence of clubbing. NEUROLOGIC: Patient is awake, alert and oriented x3. - Labs CBC & Chem 7: 09/15/18 05:58 09/15/18 05:58 Labs: Abnormal Lab Results - Last 24 Hours (Table) 09/16/18 Range/Units 06:00 PT 35.3 H (9.0-12.0) sec INR 3.7 H (<1.2) Microbiology - Last 24 Hours (Table) 09/14/18 Unknown Urine Culture - Final Urine,Voided Assessment and Plan Plan: ASSESSMENT #1Atrial flutter, typical 2:1 conduction with rapid ventricular response on admission #2Febrile illness #3History of paroxysmal atrial fibrillation on long-term anticoagulation with Coumadin #4History of severe mitral regurgitation status post mitral ring annuloplasty repair #5Hypertension #6Dyslipidemia Plan She did undergo a HASMUKH with elective cardioversion yesterday, she did convert to normal sinus rhythm/junctional rhythm, last night went back into A. fib, continues to be in atrial fibrillation today. We will consult possible pacemaker/a possible ablation. DNP note has been reviewed, I agree with a documented findings and plan of care. Patient was seen and examined.
[2018-09-16] MEDS ORDERED: POTASSIUM CHLORIDE ER 20 MEQ TAB.ER PO STA (16:36)
[2018-09-16] MEDS: MAGNESIUM SULFATE-D5W PMX 1 GM in DEXTROSE/WATER 1 100ML.BAG IVPB SCH ×2 (17:06→17:45)
[2018-09-16] MEDS: WARFARIN 2.5 MG TAB PO SCH (17:07)
[2018-09-16] MEDS ORDERED: DOFETILIDE 125 MCG CAP PO ONE (18:00)
--- NOTE | 2018-09-16 19:03 | P.CRDCN ---
History of Present Illness History of present illness: This is Dr. 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 fib ablation, drug therapy with dofetilide, permanent pacemaker implantation with physiologic septal pacing/AV junction modification The pros and cons of each approach were discussed I would recommend dofetilide. The creatinine clearance is normal. She did receive IV amiodarone but only for about 24 hours. Her baseline QT interval is about 460 ms Oral potassium 40 mg by mouth, IV magnesium 2 g and first dose of dofetilide of 125 g only to reassess QT interval She understands that she will be in the hospital for at least 5 days watch QT interval IV Cardizem dose reduced to 5 mg per hour and I will discontinue it completely and try to treat her with low-dose beta blockers only She understands that she may need an electrical cardioversion if she does not chemically convert and the QT interval can be measured accurately only thereafter Oral magnesium and spironolactone 50 mg by mouth daily Dofetilide education sheet given to the patient Dofetilide administration protocol HPI Patient presented with recurrent palpitations and some shortness of breath. 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 EXAMINATION: Blood pressure 123/59, pulse rate in the 80s, afebrile 97.5F Breath sounds are reduced bilaterally with no rhonchi no crackles Heart sounds are irregular no murmurs no gallops no rub Abdomen is soft nontender Next and is warm no edema REVIEW OF LABS, ECG & MEDICAL DATA White count 5.2 thousand, hemoglobin 9.9, TSH normal at 1.6, potassium 3.6, magnesium 1.7 him a creatinine 0.63 Creatinine clearance greater than 70 Twelve-lead ECG shows an organized atrial fibrillation with RVR upon admission ECG post cardioversion shows sinus rhythm narrow QRS heart rate in the 50s, absolute QT interval of about 460-480 ms Past Medical History Past Medical History: Atrial Fibrillation, Cancer, GERD/Reflux, Hyperlipidemia, Hypertension, Osteoarthritis (OA) Additional Past Medical History / Comment(s): "stress test showed weakness in heart muscle and leaking mitral valve", basal cell carcinoma skin cancer 15 years ago History of Any Multi-Drug Resistant Organisms: MRSA Date of last positivie culture/infection: 10/08/16 MDRO Source:: TOE LEFT FOOT Past Surgical History: Cardiac Valve Replacement, Hysterectomy, Joint Replacement Additional Past Surgical History / Comment(s): TRIPLE ARTHRODESIS LEFT FOOT, SID CATARACT SURGERY, skin cancer removed from chest, rt knee replacement. valve repair nov 19 2017 Past Anesthesia/Blood Transfusion Reactions: Previous Problems w/ Anesthesia Past Psychological History: No Psychological Hx Reported Smoking Status: Never smoker Past Alcohol Use History: None Reported Past Drug Use History: None Reported - Past Family History Father Family Medical History: Cancer Additional Family Medical History / Comment(s): LEUKEMIA Mother Family Medical History: Dementia, Hypertension Medications and Allergies Home Medications Medication Instructions Recorded Confirmed Type RX: Acetaminophen [Tylenol 650 mg PO HS PRN 09/06/17 09/13/18 History Arthritis] RX: Aspirin EC [Ecotrin Low Dose] 81 mg PO DAILY 07/23/18 09/13/18 History RX: Calcium Carbonate [Calcium] 600 mg PO BID 07/23/18 09/13/18 History RX: Cholecalciferol [Vitamin D3] 1,000 unit PO DAILY 07/23/18 09/13/18 History RX: Glucosam/Michael-Msm1/C/Lamberto/Bosw 1 tab PO DAILY 07/23/18 09/13/18 History [Glucosamine-Chondroitin Tablet] RX: Simvastatin [Zocor] 20 mg PO HS 07/23/18 09/13/18 History Meloxicam [Mobic] 15 mg PO DAILY 09/13/18 09/13/18 History RX: Amoxicillin 500 mg PO TID 09/13/18 09/13/18 History RX: Metoprolol Succinate (ER) 12.5 mg PO DAILY 09/13/18 09/13/18 History [Toprol XL] RX: Omeprazole 40 mg PO DAILY 09/13/18 09/13/18 History RX: Warfarin [Coumadin] 5 mg PO MOWEFR 09/13/18 09/13/18 History Warfarin [Coumadin] 2.5 mg PO SUTUTHSA 09/13/18 09/13/18 History amLODIPine [Norvasc] 2.5 mg PO DAILY 09/13/18 09/13/18 History Allergies Allergy/AdvReac Type Severity Reaction Status Date / Time garlic Allergy Unknown Verified 09/13/18 16:37 onion Allergy Unknown Verified 09/13/18 16:37 oxycodone Allergy Unknown Verified 09/13/18 16:37 hydrocodone [From Vicodin] AdvReac nausea/ligh Verified 09/13/18 16:37 theaded propoxyphene AdvReac Unknown Verified 09/13/18 16:37 [From Darvocet-N] phenthyazines AdvReac Nausea & Uncoded 09/13/18 16:37 Vomiting Physical Exam Vitals: Vital Signs Temp Pulse Resp BP Pulse Ox 09/16/18 15:35 97.5 F L 83 18 123/59 92 L 09/16/18 12:20 83 18 110/65 94 L 09/16/18 09:10 97.6 F 95 18 145/59 95 09/16/18 04:00 98.0 F 137 H 18 139/78 92 L 09/16/18 03:29 109 H 16 09/16/18 00:00 97.4 F L 109 H 16 132/76 100 09/15/18 19:29 64 16 09/15/18 19:28 98.6 F 64 16 123/60 96 Intake and Output 09/16/18 09/16/18 09/16/18 06:59 14:59 22:59 Intake Total 160 1046 298.5 Output Total 600 1200 Balance -440 -154 298.5 Intake: IV 160 50 Sodium Chloride 0.9% 1, 160 000 ml @ 20 mls/hr IV . Q24H [facility] Rx#:[id number] cefTRIAXone 1 gm In 50 Sodium Chloride 0.9% 50 ml @ 100 mls/hr IVPB Q24HR [facility] Rx#:[id number] Intake, IV Titration 122 248.5 Amount Diltiazem 125 mg In 122 48.5 Sodium Chloride 0.9% 100 ml @ 5 MG/HR 5 mls/hr IV .Q24H [facility] Rx#:[id number] Magnesium Sulfate-D5w Pmx 200 1 gm In Dextrose/Water 1 100ml.bag @ 100 mls/hr IVPB Q1H [facility] Rx#: [id number] Oral 924 Output: Urine 600 1200 Other: Voiding Method Toilet # Voids 2 Weight 63.6 kg Results 09/15/18 05:58 09/15/18 05:58 Coagulation 09/16/18 Range/Units 06:00 PT 35.3 H (9.0-12.0) sec Current Medications Generic Name Dose Route Start Last Admin Trade Name Freq PRN Reason Stop Dose Admin Acetaminophen 650 mg 09/13/18 16:56 09/14/18 18:08 Tylenol Tab PO 650 mg HS PRN Administration Pain Atorvastatin Calcium 10 mg 09/13/18 21:00 09/15/18 19:26 Lipitor PO 10 mg HS [facility] Administration Calcium Carbonate/Glycine 500 mg 09/13/18 21:00 09/16/18 09:14 Tums PO 500 mg BID [facility] Administration Cholecalciferol 1,000 unit 09/14/18 09:00 09/16/18 09:14 Vitamin D3 PO 1,000 unit DAILY [facility] Administration Ceftriaxone Sodium 1 gm/ 50 mls @ 100 mls/hr 09/14/18 13:00 09/16/18 09:14 Sodium Chloride IVPB 100 mls/hr Q24HR [facility] Administration Sodium Chloride 1,000 mls @ 20 mls/hr 09/15/18 13:00 09/16/18 15:36 Saline 0.9% IV 20 mls/hr .Q24H [facility] Administration Diltiazem HCl 125 mg/ Sodium 125 mls @ 5 mls/hr 09/16/18 00:15 09/16/18 17:14 Chloride IV 5 mg/hr .Q24H [facility] 5 mls/hr Infusion 5 MG/HR Meloxicam 15 mg 09/14/18 09:00 09/16/18 09:14 Mobic PO 15 mg DAILY [facility] Administration Metoprolol Succinate 12.5 mg 09/15/18 21:00 09/16/18 09:14 Toprol Xl PO 12.5 mg BID [facility] Administration Naloxone HCl 0.2 mg 09/13/18 16:54 Narcan IV Q2M PRN Opioid Reversal Pantoprazole Sodium 40 mg 09/14/18 07:30 09/16/18 05:58 Protonix PO 40 mg AC-[id number] [facility] Administration Warfarin Sodium 5 mg 09/15/18 18:00 09/15/18 17:29 Coumadin PO 5 mg MOWEFR [facility] Administration Warfarin Sodium 2.5 mg 09/13/18 18:00 09/16/18 17:07 Coumadin PO Not Given SUTUTHSA [facility] Intake and Output 09/16/18 09/16/18 09/16/18 06:59 14:59 22:59 Intake Total 160 1046 298.5 Output Total 600 1200 Balance -440 -154 298.5 Intake: IV 160 50 Sodium Chloride 0.9% 1, 160 000 ml @ 20 mls/hr IV . Q24H [facility] Rx#:[id number] cefTRIAXone 1 gm In 50 Sodium Chloride 0.9% 50 ml @ 100 mls/hr IVPB Q24HR [facility] Rx#:[id number] Intake, IV Titration 122 248.5 Amount Diltiazem 125 mg In 122 48.5 Sodium Chloride 0.9% 100 ml @ 5 MG/HR 5 mls/hr IV .Q24H [facility] Rx#:[id number] Magnesium Sulfate-D5w Pmx 200 1 gm In Dextrose/Water 1 100ml.bag @ 100 mls/hr IVPB Q1H [facility] Rx#: [id number] Oral 924 Output: Urine 600 1200 Other: Voiding Method Toilet # Voids 2 Weight 63.6 kg 09/15/18 05:58 09/15/18 05:58
[2018-09-16] MEDS ORDERED: MAGNESIUM SULFATE-D5W PMX 1 GM in DEXTROSE/WATER 1 100ML.BAG IVPB PRN (20:00)
[2018-09-16] MEDS: ATORVASTATIN 10 MG TAB PO SCH (21:19)
[2018-09-17] MEDS: DILTIAZEM 125 MG in SODIUM CHLORIDE 0.9% 100 ML IV SCH (02:55)
[2018-09-17 05:59] LABS: INR 3.5 (<1.2); Prothrombin Time 33.5 sec (9.0-12.0)
[2018-09-17] MEDS ORDERED: DOFETILIDE 250 MCG CAP PO ONE (06:00)
[2018-09-17 06:01] LABS: Anion Gap 6 mmol/L; Blood Urea Nitrogen 15 mg/dL (7-17); Calcium 8.4 mg/dL (8.4-10.2); Carbon Dioxide 28 mmol/L (22-30); Chloride 104 mmol/L (98-107); Glucose 106 mg/dL (74-99); Magnesium 2.2 mg/dL (1.6-2.3); Potassium 3.8 mmol/L (3.5-5.1); Sodium 138 mmol/L (137-145)
[2018-09-17] MEDS ORDERED: DOFETILIDE 125 MCG CAP PO STA ×2 (06:09)
[2018-09-17] MEDS ORDERED: POTASSIUM CHLORIDE ER 20 MEQ TAB.ER PO STA (06:13)
[2018-09-17] MEDS: PANTOPRAZOLE 40 MG TABLET PO SCH (06:23)
--- NOTE | 2018-09-17 07:59 | P.PN ---
Subjective Patient is resting comfortably in bed. She says she feels a little weak and short of breath but she does not appear to be short of breath Blood pressure 134/83 meters mercury him a afebrile, pulse rate in the 50s and 60s Currently in sinus rhythm Heart sounds S1 and S2 are normal Breath sounds are clear No S3 gallop Abdomen soft Extremities warm no edema Impression Persistent symptomatic atrial fibrillation with RVR refractory to prior therapy, she did receive IV amiodarone for 24 hours only. This was then discontinued when her A. fib recurred Dofetilide initiated yesterday at the lowest dose of 125 g twice daily Her baseline absolute QT interval was about 480 ms Magnesium is 1.7 which was replaced Potassium was 3.6 which was replaced yesterday After the very first dose, early this morning she converted to sinus rhythm. She was on IV Cardizem as well as oral low-dose Toprol. Initially she was in junctional rhythm but now she is back in sinus rhythm with normal rates. No PVCs Twelve-lead ECG this morning showed sinus rhythm normal MT narrow QRS and an absolute QT interval of about 480 490 ms She did receive 125 g this morning at 6:00 once again, dofetilide Labs reviewed Sodium 138, potassium 3.8, creatinine 0.59, magnesium 2.2 Suggest Oral potassium 40 mg given this morning IV Cardizem discontinued Toprol discontinued Continue Slow-Mag and spinal lactone Follow dofetilide protocol Observe on telemetry for at least 5 days, watch QT interval at the lowest dose of dofetilide Further recommendations depending on how she responds to dofetilide Objective - Vital Signs Vital signs: Vital Signs Temp 97 F L 09/17/18 03:25 Pulse 98 09/17/18 03:25 Resp 16 09/17/18 03:25 BP 134/83 09/17/18 03:25 Pulse Ox 93 L 09/17/18 03:25 Intake & Output 09/16/18 09/17/18 09/17/18 18:59 06:59 18:59 Intake Total 1344.5 258.417 360 Output Total 1200 Balance 144.5 258.417 360 Weight 89.9 kg Intake: IV 50 10 Invasive Line 1 10 cefTRIAXone 1 gm In 50 Sodium Chloride 0.9% 50 ml @ 100 mls/hr IVPB Q24HR [facility] Rx#:[id number] Intake, IV Titration 370.5 48.417 Amount Diltiazem 125 mg In 170.5 48.417 Sodium Chloride 0.9% 100 ml @ 5 MG/HR 5 mls/hr IV .Q24H [facility] Rx#:[id number] Magnesium Sulfate-D5w Pmx 200 1 gm In Dextrose/Water 1 100ml.bag @ 100 mls/hr IVPB Q1H [facility] Rx#: [id number] Oral 924 200 360 Output: Urine 1200 Other: Voiding Method Toilet # Voids 2 - Labs CBC & Chem 7: 09/15/18 05:58 09/17/18 05:31 Labs: Abnormal Lab Results - Last 24 Hours (Table) 09/17/18 09/17/18 Range/Units 05:31 05:31 PT 33.5 H (9.0-12.0) sec INR 3.5 H (<1.2) Glucose 106 H (74-99) mg/dL
[2018-09-17] MEDS: MELOXICAM 7.5 MG TAB PO SCH (08:11)
[2018-09-17] MEDS: CALCIUM CARBONATE 500 MG CHEWABLE PO SCH ×2 (08:11→20:30)
[2018-09-17] MEDS: SPIRONOLACTONE 25 MG TAB PO SCH (08:11)
[2018-09-17] MEDS: MAGNESIUM OXIDE 400 MG TAB PO SCH (08:11)
[2018-09-17] MEDS: CHOLECALCIFEROL 1,000 UNIT TAB PO SCH (08:11)
--- NOTE | 2018-09-17 12:06 | P.PN ---
Subjective Progress Note Date: 09/17/18 This is a pleasant 73-year-old female past medical history significant for severe mitral regurgitation status post mitral ring annuloplasty and Maze procedure, nonischemic cardiomyopathy, chronic systolic heart failure with improvement since mitral valve repair, paroxysmal atrial fibrillation on long- term anticoagulation, dyslipidemia and hypertension. She follows in the office with Dr. Springer. We have been asked to see her in consultation secondary to atrial fibrillation with rapid ventricular response. She was diagnosed with a urinary tract infection last week Saturday and started on amoxicillin pending urine cultures. She checks her pulse oximeter and heart rate daily and Saturday morning when she checked she noted her heart rate was reading as 140. She denies feeling any palpitations, chest discomfort, shortness of breath or dizziness associated with this. Upon arrival she was noted to be in 2:1 atrial flutter with a rate of 126. 09/15/2018 Patient was initiated on amiodarone, and in spite of that continued to have heart rates in the 1:30 range. For this reason she was advised this morning to undergo HASMUKH and elective cardioversion. The risks and the benefits were explained to the patient in detail. This will be performed later today by Dr. Springer. 09/16/2018 Patient did undergo a HASMUKH with cardioversion yesterday, post cardioversion she was in a junctional rhythm, sinus bradycardia. Throughout the night last night patient went back into atrial fibrillation, was read started on a Cardizem drip and continues to be in atrial fibrillation this morning. Dr. Carmona did have a lengthy discussion with the patient regarding the next plan would be, the decision was made to consult with Dr. Wells. 09/17/2018 Patient was seen yesterday in consultation by Dr. Wells, she was initiated on Tikosyn, given 125 g. She converted to normal sinus rhythm and remains in normal sinus rhythm this morning. Cardizem, amiodarone, and beta catrina have been discontinued. She will continue to be observed for the next 4 days. To monitor QT closely. Objective - Vital Signs Vital signs: Vital Signs Temp 97.6 F 09/17/18 08:00 Pulse 60 09/17/18 08:00 Resp 16 09/17/18 08:00 BP 127/65 09/17/18 08:00 Pulse Ox 95 09/17/18 08:00 Intake & Output 09/16/18 09/17/18 09/17/18 18:59 06:59 18:59 Intake Total 1344.5 258.417 360 Output Total 1200 Balance 144.5 258.417 360 Weight 89.9 kg Intake: IV 50 10 Invasive Line 1 10 cefTRIAXone 1 gm In 50 Sodium Chloride 0.9% 50 ml @ 100 mls/hr IVPB Q24HR [facility] Rx#:[id number] Intake, IV Titration 370.5 48.417 Amount Diltiazem 125 mg In 170.5 48.417 Sodium Chloride 0.9% 100 ml @ 5 MG/HR 5 mls/hr IV .Q24H [facility] Rx#:[id number] Magnesium Sulfate-D5w Pmx 200 1 gm In Dextrose/Water 1 100ml.bag @ 100 mls/hr IVPB Q1H [facility] Rx#: [id number] Oral 924 200 360 Output: Urine 1200 Other: Voiding Method Toilet Toilet # Voids 2 - Exam HEENT: Head is atraumatic, normocephalic. Pupils are equal, round. Sclerae anicteric. Conjunctivae are clear. Mucous membranes of the mouth are moist. Neck is supple. There is no jugular venous distention. No carotid bruit is heard. LUNGS: Clear to auscultation no wheezes, rales or rhonchi. No chest wall tenderness is noted on palpation or with deep breathing. HEART: Heart S1-S2 systolic ejection murmur at the base, no rubs or gallops. ABDOMEN: Soft, nontender. Bowel sounds are heard. No organomegaly noted. EXTREMITIES: No evidence of peripheral edema and no calf tenderness noted. VASCULAR: Radial and dorsalis pedis pulses palpated, no evidence of clubbing. NEUROLOGIC: Patient is awake, alert and oriented x3. - Labs CBC & Chem 7: 09/15/18 05:58 09/17/18 05:31 Labs: Abnormal Lab Results - Last 24 Hours (Table) 09/17/18 09/17/18 Range/Units 05:31 05:31 PT 33.5 H (9.0-12.0) sec INR 3.5 H (<1.2) Glucose 106 H (74-99) mg/dL Assessment and Plan Plan: ASSESSMENT #1Atrial flutter, typical 2:1 conduction with rapid ventricular response on admission #2Febrile illness #3History of paroxysmal atrial fibrillation on long-term anticoagulation with Coumadin #4History of severe mitral regurgitation status post mitral ring annuloplasty repair #5Hypertension #6Dyslipidemia Plan Patient converted to normal sinus rhythm with one dose of Tikosyn. She will be in the hospital for the next 4 days being monitored closely for any QT prolongation. Tikosyn dosing per Dr Wells. Hold Coumadin today continue to monitor daily INRs. DNP note has been reviewed, I agree with a documented findings and plan of care. Patient was seen and examined.
[2018-09-17] MEDS: SODIUM CHLORIDE 0.9% 1,000 ML IV SCH (15:28)
[2018-09-17] MEDS ORDERED: DOFETILIDE 125 MCG CAP PO ONE (18:00)
[2018-09-17] MEDS: WARFARIN 5 MG TAB PO SCH (18:09)
[2018-09-17] MEDS: ATORVASTATIN 10 MG TAB PO SCH (20:30)
[2018-09-18] MEDS: PANTOPRAZOLE 40 MG TABLET PO SCH (05:58)
[2018-09-18] MEDS ORDERED: DOFETILIDE 125 MCG CAP PO ONE (06:00)
[2018-09-18] MEDS: SODIUM CHLORIDE 0.9% 1,000 ML IV SCH (06:10)
[2018-09-18 06:38] LABS: INR 2.4 (<1.2); Prothrombin Time 23.1 sec (9.0-12.0)
[2018-09-18 06:43] LABS: Anion Gap 7 mmol/L; Blood Urea Nitrogen 16 mg/dL (7-17); Calcium 8.8 mg/dL (8.4-10.2); Carbon Dioxide 25 mmol/L (22-30); Chloride 106 mmol/L (98-107); Glucose 96 mg/dL (74-99); Potassium 4.1 mmol/L (3.5-5.1); Sodium 138 mmol/L (137-145)
[2018-09-18] MEDS: MELOXICAM 7.5 MG TAB PO SCH (08:22)
[2018-09-18] MEDS: MAGNESIUM OXIDE 400 MG TAB PO SCH (08:22)
[2018-09-18] MEDS: CALCIUM CARBONATE 500 MG CHEWABLE PO SCH ×2 (08:22→19:51)
[2018-09-18] MEDS: CHOLECALCIFEROL 1,000 UNIT TAB PO SCH (08:22)
[2018-09-18] MEDS: SPIRONOLACTONE 25 MG TAB PO SCH (08:23)
--- NOTE | 2018-09-18 09:11 | P.PN ---
Progress Note - Text Progress Note Date: 09/18/18 This 73-year-old female with history of previous mitral valve repair, hypertension and cardiomyopathy and also history of persistent atrial fibrillation was admitted to the hospital with recurrence of atrial fibrillation and also evidence of UTI. Patient had cardioversion with conversion to sinus rhythm and also episodes of for of junctional bradycardia during conversion. However, patient went back into atrial fibrillation. Patient was treated with Tikosyn with denominational of sinus rhythm. Her QT interval is in the range of 480 to 490 milliseconds. Her potassium and magnesium levels are corrected. Patient was taken off the beta blockers and also calcium channel blockers because of bradycardia. Her heart rate in 70s and blood pressure went up to 140/80. She denies any chest pain or shortness of breath. Vital signs: Blood pressure 140/80 and pulse is 70. Respirations 16. Lab values: Showed an INR of 2.4. Electoral lites are normal with potassium 4.1. Creatinine is 0.62 and magnesium is 2. New GENERAL EXAM: Patient is alert and oriented and doesn't appear to be in any acute distress HEENT: Normocephalic. Normal reaction of pupils, equal size, normal range of extraocular motion. No erythema or exudates in the throat. NECK: No masses, no nuchal rigidity. CHEST: No chest wall deformity. LUNGS: Equal air entry with no crackles or wheeze. HEART: S1 and S2 normal with no audible mumurs or gallops. Regular rhythm, femorals equal on both sides.. ABDOMEN: No hepatosplenomegaly, normal bowel sounds, no guarding or rigidity. SKIN: No rashes CENTRAL NERVOUS SYSTEM: No focal deficits. EXTREMITIES: No cyanosis, clubbing or edema. Final impression #1. Persistent atrial fibrillation, back in sinus rhythm, on Tikosyn. #2. Episodes of junctional bradycardia #3. Status post mitral repair #4. History of hypertension. #5. History of cardiomyopathy but improved. Plan. Patient is off beta blockers at this time because of bradycardia. We'll continue to monitor blood pressure. If necessary we'll resume Norvasc and or JONES inhibitor R. No ALLERGY to JONES inhibitor is documented. However, suspect that she might have some side effects, because he was not on JONES inhibitor on admission.
[2018-09-18] MEDS: WARFARIN 2.5 MG TAB PO SCH (16:55)
[2018-09-18] MEDS: ATORVASTATIN 10 MG TAB PO SCH (19:52)
--- NOTE | 2018-09-19 00:04 | P.PN ---
Subjective Progress Note Date: 09/16/18 Principal diagnosis: Atrial fibrillation 73-year-old pleasant female was admitted for atrial fibrillation with rapid ventricular rate patient underwent cardioversion today patient is presently sinus rhythm will be monitored patient is also being treated for urinary tract infection which was diagnosed as an outpatient in Dr. Andersen's clinic. We will obtain cultures and sensitivity results from the clinic. Continue empiric Rocephin for now patient is afebrile. Urine does look abnormal and do not expect cultures to be positive as patient was partially treated with ampicillin as an outpatient. 09/16/2018 Patient underwent HASMUKH with cardioversion yesterday. Patient converted back to atrial fibrillation this morning and was restarted on Cardizem drip. Patient did complain of dizziness this morning. No chest pain or shortness of breath. EP cardiology was consulted. For possible ablation/pacemaker. Asked line Constitutional: Denied any fatigue denied any fever. Cardio vascular: denied any chest pain, palpitations Gastrointestinal denied any nausea vomiting Pulmonary: Denied any shortness of breath cough Neurologic denied any new focal deficits Current medications reviewed. Objective - Vital Signs Vital signs: Vital Signs Temp 97.5 F L 09/16/18 15:35 Pulse 83 09/16/18 15:35 Resp 18 09/16/18 15:35 BP 123/59 09/16/18 15:35 Pulse Ox 92 L 09/16/18 15:35 Intake & Output 09/15/18 09/16/18 09/16/18 18:59 06:59 18:59 Intake Total 046 173 8881 Output Total 600 1200 Balance 870 -280 -154 Weight 63.6 kg Intake: IV 510 320 Amiodarone 360 mg In 200 Dextrose 5% in Water 200 ml @ 1 MG/MIN 33.333 mls/ hr IV .Q6H [facility] Rx#: [id number] Diltiazem 125 mg In 100 Sodium Chloride 0.9% 100 ml @ 5 MG/HR 5 mls/hr IV .Q24H [facility] Rx#:[id number] Sodium Chloride 0.9% 1, 160 320 000 ml @ 20 mls/hr IV . Q24H [facility] Rx#:[id number] cefTRIAXone 1 gm In 50 Sodium Chloride 0.9% 50 ml @ 100 mls/hr IVPB Q24HR [facility] Rx#:[id number] Intake, IV Titration 122 Amount Diltiazem 125 mg In 122 Sodium Chloride 0.9% 100 ml @ 10 MG/HR 10 mls/hr IV .[id number] [facility] Rx#: [id number] Oral 360 924 Output: Urine 600 1200 Other: Voiding Method Toilet Toilet # Voids 2 2 # Bowel Movements 1 - Exam GENERAL: The patient is alert and oriented x3, not in any acute distress. Well developed, well nourished. HEENT: Pupils are round and equally reacting to light. EOMI. No scleral icterus. No conjunctival pallor. Normocephalic, atraumatic. No pharyngeal erythema. No thyromegaly. CARDIOVASCULAR: S1 and S2 present. No murmurs, rubs, or gallops. PULMONARY: Chest is clear to auscultation, no wheezing or crackles. ABDOMEN: Soft, nontender, nondistended, normoactive bowel sounds. No palpable organomegaly. MUSCULOSKELETAL: No joint swelling or deformity. EXTREMITIES: No cyanosis, clubbing, or pedal edema. NEUROLOGICAL: Gross neurological examination did not reveal any focal deficits. SKIN: No rashes. - Labs CBC & Chem 7: 09/15/18 05:58 09/18/18 05:45 Labs: Abnormal Lab Results - Last 24 Hours (Table) 09/16/18 Range/Units 06:00 PT 35.3 H (9.0-12.0) sec INR 3.7 H (<1.2) Microbiology - Last 24 Hours (Table) 09/14/18 Unknown Urine Culture - Final Urine,Voided Assessment and Plan Assessment: -Atrial fibrillation with rapid and regular rate. Status post cardioversion. presently on amiodarone and Cardizem was restarted due to atrial fibrillation. -Atrial flutter with 2:1 conduction -Patient appears to have valvular A. fib. Patient had a valve replacement and mitral valve replacement in the past. -Sepsis possibly secondary to urinary tract infection, continue with Rocephin obtain culture sensitivity results from PCPs office. Repeat urine culture negative. -Gastric esophageal reflux disease -hyperlipidemia hypertension -Mildly elevated troponin secondary to A. fib Time with Patient: Greater than 30
--- NOTE | 2018-09-19 00:07 | P.PN ---
Subjective Progress Note Date: 09/17/18 Principal diagnosis: Atrial fibrillation 73-year-old pleasant female was admitted for atrial fibrillation with rapid ventricular rate patient underwent cardioversion today patient is presently sinus rhythm will be monitored patient is also being treated for urinary tract infection which was diagnosed as an outpatient in Dr. Andersen's clinic. We will obtain cultures and sensitivity results from the clinic. Continue empiric Rocephin for now patient is afebrile. Urine does look abnormal and do not expect cultures to be positive as patient was partially treated with ampicillin as an outpatient. 09/16/2018 Patient underwent HASMUKH with cardioversion yesterday. Patient converted back to atrial fibrillation this morning and was restarted on Cardizem drip. Patient did complain of dizziness this morning. No chest pain or shortness of breath. EP cardiology was consulted. For possible ablation/pacemaker. Asked line 09/17/2018 Patient was seen by EP and was initiated on dofetilide. Patient is currently converted to sinus rhythm and patient otherwise is symptomatic. Patient will be continued to monitor for next 4 days. Cardiology and EP is following. Constitutional: Denied any fatigue denied any fever. Cardio vascular: denied any chest pain, palpitations Gastrointestinal denied any nausea vomiting Pulmonary: Denied any shortness of breath cough Neurologic denied any new focal deficits Current medications reviewed. Objective - Vital Signs Vital signs: Vital Signs Temp 97.5 F L 09/17/18 16:16 Pulse 97 09/17/18 16:16 Resp 16 09/17/18 16:18 BP 104/65 09/17/18 16:16 Pulse Ox 96 09/17/18 12:00 Intake & Output 09/16/18 09/17/18 09/17/18 18:59 06:59 18:59 Intake Total 1344.5 258.417 720 Output Total 1200 Balance 144.5 258.417 720 Weight 89.9 kg Intake: IV 50 10 Invasive Line 1 10 cefTRIAXone 1 gm In 50 Sodium Chloride 0.9% 50 ml @ 100 mls/hr IVPB Q24HR [facility] Rx#:[id number] Intake, IV Titration 370.5 48.417 Amount Diltiazem 125 mg In 170.5 48.417 Sodium Chloride 0.9% 100 ml @ 5 MG/HR 5 mls/hr IV .Q24H [facility] Rx#:[id number] Magnesium Sulfate-D5w Pmx 200 1 gm In Dextrose/Water 1 100ml.bag @ 100 mls/hr IVPB Q1H [facility] Rx#: [id number] Oral 924 200 720 Output: Urine 1200 Other: Voiding Method Toilet Toilet # Voids 2 3 # Bowel Movements 1 - Exam GENERAL: The patient is alert and oriented x3, not in any acute distress. Well developed, well nourished. HEENT: Pupils are round and equally reacting to light. EOMI. No scleral icterus. No conjunctival pallor. Normocephalic, atraumatic. No pharyngeal erythema. No thyromegaly. CARDIOVASCULAR: S1 and S2 present. No murmurs, rubs, or gallops. PULMONARY: Chest is clear to auscultation, no wheezing or crackles. ABDOMEN: Soft, nontender, nondistended, normoactive bowel sounds. No palpable organomegaly. MUSCULOSKELETAL: No joint swelling or deformity. EXTREMITIES: No cyanosis, clubbing, or pedal edema. NEUROLOGICAL: Gross neurological examination did not reveal any focal deficits. SKIN: No rashes. - Labs CBC & Chem 7: 09/15/18 05:58 09/18/18 05:45 Labs: Abnormal Lab Results - Last 24 Hours (Table) 09/17/18 09/17/18 Range/Units 05:31 05:31 PT 33.5 H (9.0-12.0) sec INR 3.5 H (<1.2) Glucose 106 H (74-99) mg/dL Assessment and Plan Assessment: -Atrial fibrillation with rapid and regular rate. Status post cardioversion. Patient converted back to atrial fibrillation. Started on dofetilide on 09/16/2018. Currently maintaining sinus rhythm. -Atrial flutter with 2:1 conduction -Patient appears to have valvular A. fib. Patient had a valve replacement and mitral valve replacement in the past. -Sepsis possibly secondary to urinary tract infection, continue with Rocephin obtain culture sensitivity results from PCPs office. Repeat urine culture arh leonard. -Gastric esophageal reflux disease -hyperlipidemia hypertension -Mildly elevated troponin secondary to A. fib Time with Patient: Greater than 30
--- NOTE | 2018-09-19 00:09 | P.PN ---
Subjective Progress Note Date: 09/18/18 Principal diagnosis: Atrial fibrillation 73-year-old pleasant female was admitted for atrial fibrillation with rapid ventricular rate patient underwent cardioversion today patient is presently sinus rhythm will be monitored patient is also being treated for urinary tract infection which was diagnosed as an outpatient in Dr. Andersen's clinic. We will obtain cultures and sensitivity results from the clinic. Continue empiric Rocephin for now patient is afebrile. Urine does look abnormal and do not expect cultures to be positive as patient was partially treated with ampicillin as an outpatient. 09/16/2018 Patient underwent HASMUKH with cardioversion yesterday. Patient converted back to atrial fibrillation this morning and was restarted on Cardizem drip. Patient did complain of dizziness this morning. No chest pain or shortness of breath. EP cardiology was consulted. For possible ablation/pacemaker. Asked line 09/17/2018 Patient was seen by EP and was initiated on dofetilide. Patient is currently converted to sinus rhythm and patient otherwise is symptomatic. Patient will be continued to monitor for next 4 days. Cardiology and EP is following. 09/18/2018 Patient is currently in sinus rhythm. Patient is being continued on dofetilide. Cardizem, amiodarone and beta blockers have been discontinued. No other acute overnight issues. Constitutional: Denied any fatigue denied any fever. Cardio vascular: denied any chest pain, palpitations Gastrointestinal denied any nausea vomiting Pulmonary: Denied any shortness of breath cough Neurologic denied any new focal deficits Current medications reviewed. Objective - Vital Signs Vital signs: Vital Signs Temp 97.5 F L 09/18/18 20:00 Pulse 57 L 09/18/18 20:00 Resp 15 09/18/18 20:00 BP 153/66 09/18/18 20:00 Pulse Ox 96 09/18/18 20:00 Intake & Output 09/18/18 09/18/18 09/19/18 06:59 18:59 06:59 Intake Total 1080 Balance 1080 Weight 90.7 kg Intake: Oral 1080 Other: Voiding Method Toilet Toilet # Voids 2 1 - Exam GENERAL: The patient is alert and oriented x3, not in any acute distress. Well developed, well nourished. HEENT: Pupils are round and equally reacting to light. EOMI. No scleral icterus. No conjunctival pallor. Normocephalic, atraumatic. No pharyngeal erythema. No thyromegaly. CARDIOVASCULAR: S1 and S2 present. No murmurs, rubs, or gallops. PULMONARY: Chest is clear to auscultation, no wheezing or crackles. ABDOMEN: Soft, nontender, nondistended, normoactive bowel sounds. No palpable organomegaly. MUSCULOSKELETAL: No joint swelling or deformity. EXTREMITIES: No cyanosis, clubbing, or pedal edema. NEUROLOGICAL: Gross neurological examination did not reveal any focal deficits. SKIN: No rashes. - Labs CBC & Chem 7: 09/15/18 05:58 09/18/18 05:45 Labs: Abnormal Lab Results - Last 24 Hours (Table) 09/18/18 Range/Units 05:45 PT 23.1 H (9.0-12.0) sec INR 2.4 H (<1.2) Assessment and Plan Assessment: -Atrial fibrillation with rapid and regular rate. Status post cardioversion. Patient converted back to atrial fibrillation. Started on dofetilide on 09/16/2018. Currently maintaining sinus rhythm. -Atrial flutter with 2:1 conduction -Patient appears to have valvular A. fib. Patient had a valve replacement and mitral valve replacement in the past. -Sepsis possibly secondary to urinary tract infection, continue with Rocephin obtain culture sensitivity results from PCPs office. Repeat urine culture negative. -Gastric esophageal reflux disease -hyperlipidemia hypertension -Mildly elevated troponin secondary to A. fib Time with Patient: Greater than 30
[2018-09-19 04:03] LABS: INR 1.7 (<1.2); Prothrombin Time 16.5 sec (9.0-12.0)
[2018-09-19 04:06] LABS: Anion Gap 9 mmol/L; Blood Urea Nitrogen 14 mg/dL (7-17); Calcium 9.5 mg/dL (8.4-10.2); Carbon Dioxide 25 mmol/L (22-30); Chloride 105 mmol/L (98-107); Glucose 95 mg/dL (74-99); Potassium 4.2 mmol/L (3.5-5.1); Sodium 139 mmol/L (137-145)
[2018-09-19] MEDS: PANTOPRAZOLE 40 MG TABLET PO SCH (06:41)
[2018-09-19] MEDS: ACETAMINOPHEN TAB 325 MG TAB PO PRN (06:44)
[2018-09-19] MEDS ORDERED: SODIUM CHLORIDE 0.9% 1,000 ML IV SCH (08:00)
--- NOTE | 2018-09-19 08:02 | P.PN ---
Progress Note - Text Electrophysiology follow-up note from 18 of September I evaluated the patient yesterday and spoke to her Later spoke to her sister over the phone Despite the lowest dose of dofetilide of 125 g twice daily the QT interval seems to be creeping upwards and is now between 500-520 ms despite normal potassium and magnesium is normal In addition she is persistently in a junctional rhythm narrow QRS despite discontinuation of Toprol as well as IV Cardizem for 24 hours I discussed this with the patient and I would recommend discontinuation of dofetilide and proceeding with permanent pacemaker implantation Patient is agreeable with the plan Dofetilide has been discontinued
[2018-09-19] MEDS: MELOXICAM 7.5 MG TAB PO SCH (08:23)
[2018-09-19] MEDS: CHOLECALCIFEROL 1,000 UNIT TAB PO SCH (08:24)
[2018-09-19] MEDS: CALCIUM CARBONATE 500 MG CHEWABLE PO SCH ×2 (08:24→20:08)
[2018-09-19] MEDS: MAGNESIUM OXIDE 400 MG TAB PO SCH (08:24)
[2018-09-19] MEDS: SPIRONOLACTONE 25 MG TAB PO SCH (08:24)
[2018-09-19 08:59] VITALS: RESP 18
[2018-09-19] MEDS: SODIUM CHLORIDE 0.9% 1,000 ML IV SCH ×2 (09:50→14:20)
[2018-09-19 14:26] VITALS: BMI 30.7
[2018-09-19] MEDS: WARFARIN 5 MG TAB PO SCH (15:21)
[2018-09-19] MEDS: ATORVASTATIN 10 MG TAB PO SCH (20:08)
--- NOTE | 2018-09-20 00:41 | P.PN ---
Subjective Progress Note Date: 09/19/18 Principal diagnosis: Atrial fibrillation 73-year-old pleasant female was admitted for atrial fibrillation with rapid ventricular rate patient underwent cardioversion today patient is presently sinus rhythm will be monitored patient is also being treated for urinary tract infection which was diagnosed as an outpatient in Dr. Andersen's clinic. We will obtain cultures and sensitivity results from the clinic. Continue empiric Rocephin for now patient is afebrile. Urine does look abnormal and do not expect cultures to be positive as patient was partially treated with ampicillin as an outpatient. 09/16/2018 Patient underwent HASMUKH with cardioversion yesterday. Patient converted back to atrial fibrillation this morning and was restarted on Cardizem drip. Patient did complain of dizziness this morning. No chest pain or shortness of breath. EP cardiology was consulted. For possible ablation/pacemaker. Asked line 09/17/2018 Patient was seen by EP and was initiated on dofetilide. Patient is currently converted to sinus rhythm and patient otherwise is symptomatic. Patient will be continued to monitor for next 4 days. Cardiology and EP is following. 09/18/2018 Patient is currently in sinus rhythm. Patient is being continued on dofetilide. Cardizem, amiodarone and beta blockers have been discontinued. No other acute overnight issues. 09/19/2018 Patient denied any complaints of chest pain or dizziness. Despite the lowest dose of dofetilide of 125 g twice daily the QT interval seems to be creeping upwards and is now between 500-520 ms despite normal pot assium and magnesium is normal In addition she is persistently in a junctional rhythm narrow QRS despite discontinuation of Toprol as well as IV Cardizem for 24 hours Dofetilide has been discontinued, EP is following closely. Planning for permanent pacemaker placement. Constitutional: Denied any fatigue denied any fever. Cardio vascular: denied any chest pain, palpitations Gastrointestinal denied any nausea vomiting Pulmonary: Denied any shortness of breath cough Neurologic denied any new focal deficits Current medications reviewed. Objective - Vital Signs Vital signs: Vital Signs Temp 97.5 F L 09/19/18 20:00 Pulse 63 09/19/18 20:00 Resp 18 09/19/18 20:00 BP 132/70 09/19/18 20:00 Pulse Ox 95 09/19/18 20:00 Intake & Output 09/19/18 09/19/18 09/20/18 06:59 18:59 06:59 Intake Total 960 220 Balance 960 220 Weight 89.1 kg 89.1 kg Intake: Oral 960 220 Other: Voiding Method Toilet Toilet # Voids 3 1 - Exam GENERAL: The patient is alert and oriented x3, not in any acute distress. Well developed, well nourished. HEENT: Pupils are round and equally reacting to light. EOMI. No scleral icterus. No conjunctival pallor. Normocephalic, atraumatic. No pharyngeal erythema. No thyromegaly. CARDIOVASCULAR: S1 and S2 present. No murmurs, rubs, or gallops. PULMONARY: Chest is clear to auscultation, no wheezing or crackles. ABDOMEN: Soft, nontender, nondistended, normoactive bowel sounds. No palpable organomegaly. MUSCULOSKELETAL: No joint swelling or deformity. EXTREMITIES: No cyanosis, clubbing, or pedal edema. NEUROLOGICAL: Gross neurological examination did not reveal any focal deficits. SKIN: No rashes. - Labs CBC & Chem 7: 09/15/18 05:58 09/19/18 03:24 Labs: Abnormal Lab Results - Last 24 Hours (Table) 09/19/18 Range/Units 03:24 PT 16.5 H (9.0-12.0) sec INR 1.7 H (<1.2) Assessment and Plan Assessment: -Atrial fibrillation with rapid and regular rate. Status post cardioversion. Patient converted back to atrial fibrillation. Started on dofetilide on 09/16- 09/18. Scheduled for pacemaker placement due to prolonged QT. -Atrial flutter with 2:1 conduction -Patient appears to have valvular A. fib. Patient had a valve replacement and mitral valve replacement in the past. -Sepsis possibly secondary to urinary tract infection, continue with Rocephin obtain culture sensitivity results from PCPs office. Repeat urine culture negative. -Gastric esophageal reflux disease -hyperlipidemia hypertension -Mildly elevated troponin secondary to A. fib Time with Patient: Greater than 30
[2018-09-20] MEDS: PANTOPRAZOLE 40 MG TABLET PO SCH (06:33)
[2018-09-20] MEDS: SODIUM CHLORIDE 0.9% 1,000 ML IV SCH ×2 (06:33→14:29)
[2018-09-20] MEDS: CALCIUM CARBONATE 500 MG CHEWABLE PO SCH ×2 (06:34→20:43)
[2018-09-20] MEDS: MELOXICAM 7.5 MG TAB PO SCH (06:35)
[2018-09-20] MEDS: MAGNESIUM OXIDE 400 MG TAB PO SCH (06:35)
[2018-09-20] MEDS: CHOLECALCIFEROL 1,000 UNIT TAB PO SCH (06:35)
[2018-09-20] MEDS ORDERED: ceFAZolin IN SWFI 2 GM/20 ML SYRINGE IVP ONE (07:00)
[2018-09-20] MEDS ORDERED: ceFAZolin 1,000 MG in SODIUM CHLORIDE 0.9% IRRIGATIO 250 ML IRRIGATION ONE (07:00)
[2018-09-20 07:43] LABS: INR 1.2 (<1.2); Prothrombin Time 12.7 sec (9.0-12.0)
[2018-09-20 07:52] LABS: Anion Gap 12 mmol/L; Blood Urea Nitrogen 14 mg/dL (7-17); Calcium 9.5 mg/dL (8.4-10.2); Carbon Dioxide 25 mmol/L (22-30); Chloride 104 mmol/L (98-107); Glucose 91 mg/dL (74-99); Magnesium 1.9 mg/dL (1.6-2.3); Potassium 4.6 mmol/L (3.5-5.1); Sodium 141 mmol/L (137-145)
[2018-09-20] MEDS ORDERED: IV FLUID CONTINUATION 1,000 ML IV ONE (10:47)
[2018-09-20] MEDS ORDERED: fentaNYL (PF) 50 MCG/ML 2 ML AMP ONE (11:04)
[2018-09-20] MEDS ORDERED: MIDAZOLAM 2 MG/2 ML VIAL ONE (11:04)
[2018-09-20] MEDS ORDERED: PROPOFOL 10 MG/ML 20 ML VIAL IV ONE (11:04)
[2018-09-20] MEDS ORDERED: diphenhydrAMINE 50 MG/ML 1 ML VIAL ONE (11:04)
[2018-09-20] MEDS ORDERED: KETOROLAC 30 MG/ML 1 ML VIAL ONE (11:04)
[2018-09-20] MEDS ORDERED: IOPAMIDOL-370 50ML BTL INJ ONE (11:15)
[2018-09-20] MEDS ORDERED: LIDOCAINE 1% INJ 10MG/ML (20 ML MDV) ONE ×2 (11:56→12:22)
[2018-09-20] MEDS: LIDOCAINE 1% INJ 10MG/ML (20 ML MDV) SQ ONE ×2 (12:13→12:19)
[2018-09-20] MEDS ORDERED: HYDROcodone/APAP 5-325MG 1 EACH TAB PO PRN (13:50)
[2018-09-20] MEDS ORDERED: ACETAMINOPHEN IV (For NPO) 1,000 MG in EMPTY BAG 1 BAG IVPB ONE (13:50)
--- NOTE | 2018-09-20 14:09 | P.PRLE ---
RE: VladislavKaleigh Dear Jessica Mrs. Loomis was admitted to the hospital with symptomatic atrial fibrillation with RVR. She failed a brief dose of IV amiodarone plus electrical cardioversio n I treated her dofetilide and with the very first dose she converted to sinus rhythm but a QT interval became progressively longer, greater than 500 ms even at the lowest dose and therefore this strategy was abandoned She had intermittent episodes of junctional rhythm with severe bradycardia despite discontinuation of AV apurva blocking drugs and therefore a biventricular pacemaker with physiologic septal pacing/His bundle pacing was performed to avoid RV pacing She has an atrial lead, RV lead and the His bundle lead screwed in the His bundle to promote intrinsic, physiologically similar conduction down into the ventricles Over time, right ventricular pacing is associated with progressive cardiomyopathy and she has had a history 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 I will start her on long-acting metoprolol now since she does have a very mild cardio myopathy I anticipate that she will continue to have episodes of atrial fibrillation Now we can give her adequate doses of beta blockers to rate control her episodes of atrial fibrillation. However if this fails then AV junction modification/ablation may be considered and the advantage of His bundle pacing is that while the AV node is ablated, His bundle pacing will still promote conduction down both the bundles and simulate physiologic conduction and hence preserve LV function. Obviously this pacemaker does not exclude the possibility of a future atrial tachycardia ablation if needed Thank you for entrusting me with the care of the patient Warm regards Sincerely Oli Wells
[2018-09-20] MEDS: SPIRONOLACTONE 25 MG TAB PO SCH (14:29)
[2018-09-20] MEDS: METOPROLOL SUCCINATE (ER) 50 MG TAB.ER.24H PO SCH (14:37)
[2018-09-20] MEDS: WARFARIN 5 MG TAB PO SCH (14:39)
[2018-09-20] MEDS: ceFAZolin IN SWFI 2 GM/20 ML SYRINGE IVP SCH ×2 (17:26→23:14)
--- NOTE | 2018-09-20 20:17 | PCN ---
PROCEDURE NOTE Kaleigh Loomis is a 73-year-old female who presented to the hospital initially with atrial fibrillation with rapid ventricular response. She has a history of valvular heart disease status post aortic valve replacement and mitral valve repair. She has had a Maze procedure performed at the time of surgery. She has had at least 2-3 episodes of atrial fibrillation that required treatment. She has had intermittent episodes of bradycardia. She initially failed electrical cardioversion with a brief IV dose of amiodarone. Subsequently dofetilide was used. While dofetilide was successful in its 1st dose at 125 mcg and converted her to sinus rhythm, progressively there was a prolongation of the QT interval to beyond 500 milliseconds. Therefore, Dofetilide was abandoned. She continued to have episodes of junctional rhythm despite stopping all AV apurva blocking drugs for several days. Therefore, a biventricular pacemaker was recommended since it is anticipated that her RV pacing needs would be high with standard pacing and would only worsen her cardiomyopathy. DESCRIPTION OF PROCEDURE: The patient is brought to the EP lab in a fasting state. Written informed consent was obtained prior to the procedure. The left shoulder area was prepped and draped as per protocol. 1% lidocaine was used for local anesthesia. The incision was made parallel to the deltopectoral groove, about 1.5 cm medial to it. The incision was carried down to the level of the pectoralis muscle. A subfascial pocket was made. Hemostasis was assured. The left axillary vein was accessed at 3 separate points under fluoroscopy and via appropriately-sized introducer sheaths, 3 leads were positioned in the right heart. The atrial lead was a screw-in lead 52 cm Medtronic model #5076 serial number [id number]. The P waves were 2.82-3.2 mV, pacing impedance 574 ohms. Pacing threshold 0.3 V at 0.5 milliseconds. 10 V test negative. The RV lead was 58 cm leads, passive lead positioned in the RV apex. This was a Medtronic model #4074 and serial number [id number]. 10 V test was negative. Pacing threshold was 0.4 V at 0.5 milliseconds, pacing impedance of 1269 ohms and R-waves of 14.5 mV. The patient was intermittently in junctional rhythm during the procedure. Mapping of the His bundle was performed and the lead was screwed in the HIS bundle area, nonselective HIS bundle pacing was noted and till 1 V at 1 millisecond. Following which, ventricular pacing was noted and there was loss of complete capture at 0.5 V at 1 millisecond. The leads were connected to the biventricular pacemaker [employer] model number W1TR02 serial number [id number]. Leads and generator were then placed in subfascial pocket. The wound was closed in 3 layers and dressed per protocol. RESULTS: Successful biventricular pacemaker implantation for management of sick sinus syndrome and AV node disease with anticipated RV and with an anticipated RV pacing of close to 100% with standard pacing. A biventricular pacemaker was implanted with physiologic septal pacing. Future plan: Maximize beta blockers. Resume Coumadin. Keep the INR greater than 2.0. If she has episodes of atrial fibrillation which are not rate controlled are symptomatic, then AV junction modification should be considered. DAYANA / MARGARITAN: [id number] /
[2018-09-20] MEDS: ATORVASTATIN 10 MG TAB PO SCH (20:43)
--- NOTE | 2018-09-21 00:26 | P.PN ---
Subjective Progress Note Date: 09/20/18 Principal diagnosis: Atrial fibrillation 73-year-old pleasant female was admitted for atrial fibrillation with rapid ventricular rate patient underwent cardioversion today patient is presently sinus rhythm will be monitored patient is also being treated for urinary tract infection which was diagnosed as an outpatient in Dr. Andersen's clinic. We will obtain cultures and sensitivity results from the clinic. Continue empiric Rocephin for now patient is afebrile. Urine does look abnormal and do not expect cultures to be positive as patient was partially treated with ampicillin as an outpatient. 09/16/2018 Patient underwent HASMUKH with cardioversion yesterday. Patient converted back to atrial fibrillation this morning and was restarted on Cardizem drip. Patient did complain of dizziness this morning. No chest pain or shortness of breath. EP cardiology was consulted. For possible ablation/pacemaker. Asked line 09/17/2018 Patient was seen by EP and was initiated on dofetilide. Patient is currently converted to sinus rhythm and patient otherwise is symptomatic. Patient will be continued to monitor for next 4 days. Cardiology and EP is following. 09/18/2018 Patient is currently in sinus rhythm. Patient is being continued on dofetilide. Cardizem, amiodarone and beta blockers have been discontinued. No other acute overnight issues. 09/19/2018 Patient denied any complaints of chest pain or dizziness. Despite the lowest dose of dofetilide of 125 g twice daily the QT interval seems to be creeping upwards and is now between 500-520 ms despite normal pot assium and magnesium is normal In addition she is persistently in a junctional rhythm narrow QRS despite discontinuation of Toprol as well as IV Cardizem for 24 hours Dofetilide has been discontinued, EP is following closely. Planning for permanent pacemaker placement. 09/20/2018 Patient is status post pacemaker placement today. No complaints of chest pain or shortness of breath. No dizziness. Constitutional: Denied any fatigue denied any fever. Cardio vascular: denied any chest pain, palpitations Gastrointestinal denied any nausea vomiting Pulmonary: Denied any shortness of breath cough Neurologic denied any new focal deficits Current medications reviewed. Objective - Vital Signs Vital signs: Vital Signs Temp 98.1 F 09/20/18 20:00 Pulse 50 L 09/20/18 20:00 Resp 18 09/20/18 20:00 BP 114/61 09/20/18 20:00 Pulse Ox 94 L 09/20/18 20:00 Intake & Output 09/20/18 09/20/18 09/21/18 06:59 18:59 06:59 Intake Total 400 1060 Balance 400 1060 Weight 89.5 kg Intake: IV 1060 Intake, IV Titration 400 Amount cefTRIAXone 1 gm In 400 Sodium Chloride 0.9% 50 ml @ 100 mls/hr IVPB Q24HR [facility] Rx#:[id number] Other: Voiding Method Toilet Toilet # Voids 2 1 1 - Exam GENERAL: The patient is alert and oriented x3, not in any acute distress. Well developed, well nourished. HEENT: Pupils are round and equally reacting to light. EOMI. No scleral icterus. No conjunctival pallor. Normocephalic, atraumatic. No pharyngeal erythema. No thyromegaly. CARDIOVASCULAR: S1 and S2 present. No murmurs, rubs, or gallops. PULMONARY: Chest is clear to auscultation, no wheezing or crackles. ABDOMEN: Soft, nontender, nondistended, normoactive bowel sounds. No palpable organomegaly. MUSCULOSKELETAL: No joint swelling or deformity. EXTREMITIES: No cyanosis, clubbing, or pedal edema. NEUROLOGICAL: Gross neurological examination did not reveal any focal deficits. SKIN: No rashes. - Labs CBC & Chem 7: 09/15/18 05:58 09/20/18 06:15 Labs: Abnormal Lab Results - Last 24 Hours (Table) 09/20/18 Range/Units 06:15 PT 12.7 H (9.0-12.0) sec INR 1.2 H (<1.2) Assessment and Plan Assessment: -Atrial fibrillation with rapid and regular rate. Status post cardioversion. Patient converted back to atrial fibrillation. Started on dofetilide on 09/16- 09/18. Scheduled for pacemaker placement due to prolonged QT on 09/20/2018. -Atrial flutter with 2:1 conduction -Patient appears to have valvular A. fib. Patient had a valve replacement and mitral valve replacement in the past. -Sepsis possibly secondary to urinary tract infection, continue with Rocephin obtain culture sensitivity results from PCPs office. Repeat urine culture negative. -Gastric esophageal reflux disease -hyperlipidemia hypertension -Mildly elevated troponin secondary to A. fib Time with Patient: Greater than 30
[2018-09-21] MEDS: ceFAZolin IN SWFI 2 GM/20 ML SYRINGE IVP SCH ×2 (06:19→11:38)
[2018-09-21] MEDS: PANTOPRAZOLE 40 MG TABLET PO SCH (06:20)
[2018-09-21 06:58] LABS: Calcium 9.1 mg/dL (8.4-10.2); Magnesium 1.8 mg/dL (1.6-2.3); Potassium 4.4 mmol/L (3.5-5.1)
[2018-09-21 07:05] LABS: INR 1.8 (<1.2); Prothrombin Time 18.2 sec (9.0-12.0)
[2018-09-21] MEDS: METOPROLOL SUCCINATE (ER) 50 MG TAB.ER.24H PO SCH (07:20)
[2018-09-21] MEDS: CHOLECALCIFEROL 1,000 UNIT TAB PO SCH (07:20)
[2018-09-21] MEDS: MELOXICAM 7.5 MG TAB PO SCH (07:20)
[2018-09-21] MEDS: CALCIUM CARBONATE 500 MG CHEWABLE PO SCH (07:20)
[2018-09-21] MEDS: ACETAMINOPHEN TAB 325 MG TAB PO PRN ×2 (07:24→14:59)
[2018-09-21 07:30] VITALS: PULSE 51
--- NOTE | 2018-09-21 07:34 | XR ---
EXAM: XR Chest, 2 Views. CLINICAL HISTORY: Reason: Lead placement check TECHNIQUE: Frontal and lateral views of the chest. COMPARISON: 09/13/18 FINDINGS: Lungs: Lung volumes are within normal limits. No evidence of airspace consolidation. No diffuse interstitial edema. Pleural spaces: There is a small right pleural effusion. No pneumothorax. Heart: Heart size normal. There has been interval placement of a left anterior chest wall 3-lead cardiac pacer hardware, with leads seen in the right atrium, right ventricle, and the projection of the interventricular septum. Mediastinum: No mediastinal widening or shift. Bones: Unremarkable. No acute fracture. IMPRESSION: Interval placement of cardiac pacer hardware as above.
[2018-09-21 11:42] VITALS: BP 137/96; TEMP 98.4
[2018-09-21] MEDS: WARFARIN 5 MG TAB PO SCH (12:20)
--- NOTE | 2018-09-21 12:25 | P.PN ---
Subjective Principal diagnosis: Patient is doing well. She does have mild discomfort in the pacemaker site with slight puffiness but there is no stroke age minimal hematoma. She is on Coumadin INR is 1.8. She does have a mechanical aortic valve. Wound was on hold because of levels were high before. She was also on IV antibiotics She denies any chest discomfort no dizziness lightheadedness The biventricular pacemaker with physiologic septal pacing was interrogated. The His bundle lead is functioning normally. Appropriate adjustments were made. I reviewed the chest x-ray all leads are in stable position Heart sounds are crisp S2 is mechanical in sound Breath sounds are clear no rhonchi no crackles Abdomen is soft nontender Extremities warm no edema Impression Paroxysmal atrial fibrillation with RVR with difficult rate control Refractory to therapy Patient could not tolerate even the lowest dose of dofetilide on account of QT prolongation Dofetilide plan was abandoned as a result of this She has Sick Sinus Syndrome as well as AV node disease with intermittent junctional rhythm repeatedly despite stopping her AV apurva blocking drugs Biventricular pacing was performed as it is anticipated that she will have high RV pacing percentage Suggest Coumadin 5 mg by mouth daily today and tomorrow PT/INR check along with a pacemaker check on Saturday and adjustment of the dose of Coumadin I would repeat the PT/INR after one week once again since she's been on antibiotics for the last one week for UTI Toprol dose is being increased to 50 g by mouth daily, all other medications remain the same with the exception of a slight change in the warfarin dose She'll continue follow-up with Dr. Salgado and Dr. Springer as before She will go home today Objective - Vital Signs Vital signs: Vital Signs Temp 98.4 F 09/21/18 11:41 Pulse 51 L 09/21/18 11:41 Resp 18 09/21/18 11:41 BP 137/96 09/21/18 11:41 Pulse Ox 95 09/21/18 11:41 Intake & Output 09/20/18 09/21/18 09/21/18 18:59 06:59 18:59 Intake Total 1060 Balance 1060 Intake: IV 1060 Other: Voiding Method Toilet # Voids 1 1 1 - Labs CBC & Chem 7: 09/15/18 05:58 09/21/18 05:31 Labs: Abnormal Lab Results - Last 24 Hours (Table) 09/21/18 09/21/18 Range/Units 05:31 05:31 PT 18.2 H (9.0-12.0) sec INR 1.8 H (<1.2) BUN 20 H (7-17) mg/dL Glucose 104 H (74-99) mg/dL
== END 2018-09-21 15:10 | disposition home or self-care (01) | DRG 243 ==
LOC: EC 14:28 → 3SCARD 16:54
PROVIDERS: ADMIT Internal Medicine; ATTEND Internal Medicine
PROC: B246ZZ4 Ultrasonography of Right and Left Heart, Transesophageal (ICD-10-PCS; 2018-09-15)
PROC: 5A2204Z Restoration of Cardiac Rhythm, Single (ICD-10-PCS; 2018-09-15)
PROC: 0JH606Z Insertion of Pacemaker, Dual Chamber into Chest Subcutaneous Tissue and Fascia, Open Approach (ICD-10-PCS; principal; 2018-09-20 11:00)
PROC: 02K83ZZ Map Conduction Mechanism, Percutaneous Approach (ICD-10-PCS; principal; 2018-09-20 11:00)
PROC: 02H63JZ Insertion of Pacemaker Lead into Right Atrium, Percutaneous Approach (ICD-10-PCS; principal; 2018-09-20 11:00)
PROC: 02HK3JZ Insertion of Pacemaker Lead into Right Ventricle, Percutaneous Approach (ICD-10-PCS; principal; 2018-09-20 11:00)
DX: I48.3 Typical atrial flutter (principal); N39.0 Urinary tract infection, site not specified; I50.22 Chronic systolic (congestive) heart failure; I48.0 Paroxysmal atrial fibrillation; I42.9 Cardiomyopathy, unspecified; I27.20 Pulmonary hypertension, unspecified; I07.1 Rheumatic tricuspid insufficiency; I11.0 Hypertensive heart disease with heart failure; I45.81 Long QT syndrome; I49.5 Sick sinus syndrome; R77.8 Other specified abnormalities of plasma proteins; K21.9 Gastro-esophageal reflux disease without esophagitis; M19.90 Unspecified osteoarthritis, unspecified site; E78.5 Hyperlipidemia, unspecified; Z79.01 Long term (current) use of anticoagulants; Z79.1 Long term (current) use of non-steroidal anti-inflammatories (NSAID); Z79.82 Long term (current) use of aspirin; Z79.899 Other long term (current) drug therapy; Z85.828 Personal history of other malignant neoplasm of skin; Z86.14 Personal history of Methicillin resistant Staphylococcus aureus infection; Z90.710 Acquired absence of both cervix and uterus; Z96.651 Presence of right artificial knee joint; Z95.2 Presence of prosthetic heart valve; Z98.42 Cataract extraction status, left eye; Z98.41 Cataract extraction status, right eye; Z80.6 Family history of leukemia; Z88.5 Allergy status to narcotic agent; Z88.8 Allergy status to other drugs, medicaments and biological substances; Z91.018 Allergy to other foods; Z81.8 Family history of other mental and behavioral disorders; Z82.49 Family history of ischemic heart disease and other diseases of the circulatory system
CPT/HCPCS: 33208; 36415; 71046; 80048; 80053; 81001; 83735; 84443; 84484; 85025; 85027; 85610; 85730; 87086; 92960; 93005; 93312; 93320; 93325; 94760; 96365; 96376; 99291

== ENCOUNTER → 2019-01-30 | Outpatient (CLI) | payer MEDICARE ==
[2019-01-30 17:54] LABS: Anisocytosis Slight; HCT 32.7 % (34.0-46.0); HGB 10.3 gm/dL (11.4-16.0); Hypochromasia Moderate; MCH 23.2 pg (25.0-35.0); MCHC 31.4 g/dL (31.0-37.0); MCV 73.9 fL (80.0-100.0); Mean Platelet Volume 7.6; Microcytosis Slight; Platelet Count 246 k/uL (150-450); RBC 4.43 m/uL (3.80-5.40); RDW 16.3 % (11.5-15.5); WBC 6.9 k/uL (3.8-10.6)
[2019-01-30 18:10] LABS: Potassium 4.1 mmol/L (3.5-5.1)
== END | disposition home or self-care (01) ==
LOC: LABPAT 17:06
PROVIDERS: ATTEND Internal Medicine Clinical Cardiac Electrophysiology
DX: Z01.812 Encounter for preprocedural laboratory examination (principal); E78.2 Mixed hyperlipidemia; I48.0 Paroxysmal atrial fibrillation
CPT/HCPCS: 36415; 80051; 82565; 82947; 84520; 85027

== ENCOUNTER 2019-02-16 11:58 | Day surgery (SDC) | payer MEDICARE ==
[~2019-02-16 11:58] MED LIST changes: -ALPRAZolam 0.25 MG TAB PO PRN; -ASPIRIN 325 MG TAB PO ONE; +LIDOCAINE 1% 20 ML VIAL (10MG/ML) FOR IV START INTRADERMA PRN; +MORPHINE SULFATE 2 MG/ML SYRINGE IV PRN; +ONDANSETRON 4 MG/2 ML VIAL IVP PRN; -SODIUM CHLORIDE 0.9% 1,000 ML in EMPTY BAG 1 BAG IV ONE
[2019-02-16] MEDS: SODIUM CHLORIDE 0.9% 1,000 ML IV SCH (13:02)
[2019-02-16] MEDS ORDERED: fentaNYL (PF) 50 MCG/ML 2 ML AMP ONE (14:56)
[2019-02-16] MEDS ORDERED: EPINEPHrine 10 ML SYRINGE (0.1 MG/ML) ONE (14:56)
[2019-02-16] MEDS ORDERED: PROPOFOL 10 MG/ML 20 ML VIAL IV ONE (14:56)
[2019-02-16] MEDS ORDERED: MIDAZOLAM 2 MG/2 ML VIAL ONE (14:56)
[2019-02-16] MEDS ORDERED: LIDOCAINE 1% INJ 10MG/ML (20 ML MDV) ONE (15:16)
[2019-02-16] MEDS ORDERED: LIDOCAINE 1% INJ 10MG/ML (20 ML MDV) SQ ONE (15:49)
[2019-02-16] MEDS ORDERED: ACETAMINOPHEN IV (For NPO) 1,000 MG in EMPTY BAG 1 BAG IVPB ONE (16:55)
[2019-02-16] MEDS ORDERED: NON-FORMULARY DRUG (Acetaminophen [Tylenol Arthritis] 650 MG) PO PRN (16:57)
--- NOTE | 2019-02-16 17:10 | P.PCN ---
Preoperative Diagnosis: Preoperative diagnosis: Atrial fibrillation with RVR, symptomatic, failed multiple AV node blocking medication combinations Procedure: Device interrogation with reprogramming prior to the procedure AV Node Ablation/modification. Device interrogation with reprogramming postprocedure Operators: Dr. Wells and Corazon Whelan PA-C Patient was brought to the EP lab in a fasting state. Written, informed consent was obtained prior to the procedure. Access was obtained, sheath placed in right femoral vein. 1. Preprocedure device interrogation and reprogramming Device interrogation with reprogramming performed. Rate responsiveness was turned off and the pacing rate was reprogrammed to a backup mode prior to ablation. Tachycardia detections turned off. Lead impedance is documented, sensing and pacing thresholds performed prior to the procedure Backup pacing, VVI 40 bpm 2. AV node ablation A Mapping/Ablation catheter was placed and right-sided AV node radiofrequency ablation/modification was performed. Complete heart block was achieved with occasional junctional escape rhythm above 40 bpm 3. Device programming postprocedure Post ablation, device reprogramming was performed. Base Pacing rate was programmed to 90 bpm. Patient's device was reprogrammed and the interrogated. RF mode turned on Vascular sheaths were removed at the end of the procedure, hemostasis was assured, the patient was then transferred to recovery room/telemetry in stable condition. Conclusions: Successful ablation of the AV node. Plan: Pacing at 90 bpm for at least 2 weeks. Telemetry monitoring for 24 hours. Continue anticoagulation Stop diltiazem and reduce metoprolol to 100 mg daily Patient tolerated the procedure well without any acute complications.
--- NOTE | 2019-02-16 17:22 | P.HPCAR ---
History of Present Illness This is Corazon Whelan PA-C dictating a H&P on this patient The patient was interviewed and examined by me as well as by Dr. Wells Case discussed with Dr. Wells and he agrees with the plan of care IMPRESSION / ASSESSMENT: Symptomatic paroxysmal atrial fibrillation with RVR status post Maze procedure, refractory to multiple AV node blocking medication combinations Sick sinus syndrome status post biventricular pacemaker placement with physiologic septal pacing Hypertension Dyslipidemia Valvular heart disease status post mitral valve repair PLAN: Proceed with AV node ablation afterwords, we will discontinue diltiazem and reduce the dose of metoprolol to 100 mg daily HPI Patient is a 73-year-old female with a past medical history of paroxysmal atrial fibrillation status post Maze procedure, sick sinus syndrome status post biventricular pacemaker placement, hypertension, dyslipidemia, and valvular heart disease status post mitral valve repair who presents for an AV node ablation. Patient has had symptomatic paroxysmal atrial fibrillation with RVR which has been refractory to multiple AV node blocking medication combinations. She has symptoms of palpitations and shortness of breath when she goes into [facility] with RVR. Today she feels well. Denies any complaints of shortness of breath, chest pain, orthopnea, PND, cough, lower extremity edema, recent infections. ROS: No fevers, chills or rigors, no cough, phlegm or expectoration, no nausea, vomiting or diarrhea, no hematuria, dysuria, no musculoskeletal complaints, no strokes or seizures, no skin lesions. EXAMINATION: Patient is afebrile, pulse 98, respirations 16, blood pressure 145/75, oxygen saturation 100% on room air Patient seen and examined resting comfortably in bed, in no acute distress Lungs clear to auscultation bilaterally, no wheezing, rhonchi or crackles Heart is irregularly irregular, mechanical S2 noted No elevated JVD No lower extremity edema Abdomen soft and nontender REVIEW OF LABS, ECG & MEDICAL DATA WBC 6.9, hemoglobin 10.3, platelets 246, potassium 4.1, BUN 25, creatinine 0.85 Most recent cath in 2018 showed normal coronary arteries Most recent echo in 2019 showed normal EF, mild to moderate TR Physical Exam Vitals: Vital Signs Temp Pulse Resp BP Pulse Ox 02/16/19 13:00 97.7 F 98 16 145/75 100 Intake and Output 02/16/19 02/16/19 02/16/19 06:59 14:59 22:59 Intake Total 600 50 Balance 600 50 Intake: IV 600 50 Past Medical History Past Medical History: Atrial Fibrillation, Cancer, GERD/Reflux, Hyperlipidemia, Hypertension, Osteoarthritis (OA) Additional Past Medical History / Comment(s): "stress test showed weakness in heart muscle and leaking mitral valve", basal cell carcinoma skin cancer 15 years ago History of Any Multi-Drug Resistant Organisms: MRSA Date of last positivie culture/infection: 10/08/16 MDRO Source:: TOE LEFT FOOT Past Surgical History: Cardiac Valve Replacement, Hysterectomy, Joint Replacement Additional Past Surgical History / Comment(s): TRIPLE ARTHRODESIS LEFT FOOT, SID CATARACT SURGERY, skin cancer removed from chest, rt knee replacement. valve repair nov 19 2017 Past Anesthesia/Blood Transfusion Reactions: Previous Problems w/ Anesthesia Past Psychological History: No Psychological Hx Reported Smoking Status: Never smoker Past Alcohol Use History: None Reported Past Drug Use History: None Reported - Past Family History Father Family Medical History: Cancer Additional Family Medical History / Comment(s): LEUKEMIA Mother Family Medical History: Dementia, Hypertension Physical Examination Vital Signs Temp Pulse Resp BP Pulse Ox 02/16/19 13:00 97.7 F 98 16 145/75 100 Intake and Output 02/16/19 02/16/19 02/16/19 06:59 14:59 22:59 Intake Total 600 50 Balance 600 50 Intake: IV 600 50 Results Current Medications Generic Name Dose Route Start Last Admin Trade Name Freq PRN Reason Stop Dose Admin Acetaminophen 650 mg 02/16/19 21:00 Tylenol Tab PO Q6HR PRN Mild Pain Atorvastatin Calcium 10 mg 02/16/19 21:00 Lipitor PO HS ERENDIRA Sodium Chloride 1,000 mls @ 50 mls/hr 02/16/19 06:13 02/16/19 13:02 Saline 0.9% IV 600 mls .Q20H ERENDIRA Administration Lactated Ringer's 1,000 mls @ 20 mls/hr 02/16/19 06:13 Lactated Ringers IV .Q24H ERENDIRA Lidocaine HCl 0.1 ml 02/16/19 06:13 .Xylocaine 1% Inj (10mg/Ml) For Iv Start INTRADERMA PER PROTOCOL PRN IV Start Metoprolol Succinate 100 mg 02/17/19 09:00 Toprol Xl PO DAILY ERENDIRA Morphine Sulfate 2 mg 02/16/19 06:13 Morphine Sulfate (Inj) IV 02/17/19 06:14 Q5M PRN Pain Control Patient's Own ( 25 mg 02/17/19 09:00 Mirabegron [ PO Myrbetriq] 25 Mg) DAILY ERENDIRA Ondansetron HCl 4 mg 02/16/19 06:13 Zofran IVP 02/17/19 06:14 ONCE PRN Nausea And Vomiting Pantoprazole Sodium 40 mg 02/17/19 07:30 Protonix PO AC-BRKFST ERENDIRA Rivaroxaban 20 mg 02/16/19 21:00 Xarelto PO HS ERENDIRA Sodium Chloride 12 ml 02/16/19 21:00 Saline Flush IV Q12HR ERENDIRA Intake and Output 02/16/19 02/16/19 02/16/19 06:59 14:59 22:59 Intake Total 600 50 Balance 600 50 Intake: IV 600 50
--- NOTE | 2019-02-16 17:33 | P.PCN ---
Preoperative Diagnosis: Preoperative diagnosis: Traumatic atrial fibrillation refractory to drug therapy, with RVR Patient underwent biventricular pacemaker placement with physiologic septal pacing previously, today she underwent AV node ablation Prior to the ablation, the pacemaker was interrogated, thresholds and impedances were evaluated and it was re-programmed to VVI 40 preparation for the ablation Post-ablation, the pacemaker was re-interrogated, RV pacing impedance stable at its 646 ohms, pacing threshold 0.5 V at 0.4 ms Physiologic septal pacing impedance stable at 399 ohms, pacing threshold 0.5 V at 1 ms Biventricular pacemaker was re- programmed to VVIR to 90-130 PPM We'll continue basal pacing rate of 90 bpm for at least 2 weeks and thereafter will reduce it to VVIR 60-130 PPM
[2019-02-16 19:10] VITALS: RESP 18
[2019-02-16] MEDS: LACTATED RINGERS 1,000 ML IV SCH (20:04)
[2019-02-16 20:15] VITALS: BMI 29.2
[2019-02-16] MEDS ORDERED: ACETAMINOPHEN TAB 325 MG TAB PO PRN (21:00)
[2019-02-16] MEDS ORDERED: RIVAROXABAN 20 MG TAB PO SCH (21:00)
[2019-02-16] MEDS ORDERED: ATORVASTATIN 10 MG TAB PO SCH (21:00)
[2019-02-17] MEDS: SODIUM CHLORIDE 0.9% 1,000 ML IV SCH (04:03)
[2019-02-17] MEDS: LACTATED RINGERS 1,000 ML IV SCH (04:03)
[2019-02-17] MEDS ORDERED: PANTOPRAZOLE 40 MG TABLET PO SCH (07:30)
[2019-02-17] MEDS ORDERED: PATIENT'S OWN (Mirabegron [Myrbetriq] 25 MG) PO SCH (09:00)
[2019-02-17] MEDS ORDERED: METOPROLOL SUCCINATE (ER) 100 MG TAB.ER.24H PO SCH (09:00)
[2019-02-17 11:17] VITALS: BP 133/79; PULSE 94; TEMP 97.9
--- NOTE | 2019-02-17 11:29 | P.DS ---
Providers Attending physician: Oli Wells Primary care physician: [facility] Course: Patient is a 73-year-old female with a past medical history of paroxysmal atrial fibrillation status post Maze procedure, sick sinus syndrome status post biventricular pacemaker placement, hypertension, dyslipidemia, and valvular heart disease status post mitral valve repair who presented for AV node ablation. Patient had symptomatic paroxysmal atrial fibrillation with RVR that was refractory to multiple AV node blocking medications combinations. Yesterday she underwent successful A-V node ablation. Patient seen and examined resting comfortably in bed. No acute events overnight. He is feeling well today. Complaining of some mild chest discomfort. Denies shortness of breath. Has been able to get up and use the bathroom without any dizziness, lightheadedness or syncope. Patient is afebrile, pulse 94, respirations 18, blood pressure 133/79, oxygen saturation 97% on room air Patient seen and examined resting comfortably in bed Lungs clear to auscultation bilaterally Heart is regular, mechanical S2 noted No elevated JVD No lower extremity edema Right groin nontender to palpation, no hematoma Impression Symptomatic paroxysmal atrial fibrillation with RVR status post AV node ablation sick sinus syndrome status post biventricular pacemaker placement with physiologic septal pacing Hypertension Dyslipidemia Valvular heart disease status post mitral valve repair Plan Discontinue diltiazem, decreased dose of metoprolol to 100 mg daily Follow-up in the device clinic in 3 weeks to have device reprogrammed to VVIR 83938 PPM Follow-up with Dr. Springer as previously scheduled Plan - Discharge Summary Discharge Rx Participant: No New Discharge Prescriptions: New Metoprolol Succinate (ER) [Toprol XL] 100 mg PO DAILY #90 tab Continue Acetaminophen [Tylenol Arthritis] 650 mg PO HS PRN PRN Reason: Pain Simvastatin [Zocor] 20 mg PO HS Cholecalciferol [Vitamin D3 (25 Mcg = 1000 Iu)] 1,000 unit PO DAILY Calcium Carbonate [Calcium] 600 mg PO BID Omeprazole 40 mg PO DAILY Mirabegron [Myrbetriq] 25 mg PO DAILY Rivaroxaban [Xarelto] 20 mg PO HS Discontinued Diltiazem Oral [Cardizem Oral] 60 mg PO TID Metoprolol Succinate (ER) [Toprol XL] 100 mg PO BID Discharge Medication List Acetaminophen [Tylenol Arthritis] 650 mg PO HS PRN 09/06/17 [History] Calcium Carbonate [Calcium] 600 mg PO BID 07/23/18 [History] Cholecalciferol [Vitamin D3 (25 Mcg = 1000 Iu)] 1,000 unit PO DAILY 07/23/18 [History] Simvastatin [Zocor] 20 mg PO HS 07/23/18 [History] Omeprazole 40 mg PO DAILY 09/13/18 [History] Mirabegron [Myrbetriq] 25 mg PO DAILY 02/10/19 [History] Rivaroxaban [Xarelto] 20 mg PO HS 02/10/19 [History] Metoprolol Succinate (ER) [Toprol XL] 100 mg PO DAILY #90 tab 02/16/19 [Rx] Follow up Appointment(s)/Referral(s): Scott Springer MD [STAFF PHYSICIAN] - 3 Weeks (Device clinic follow-up in 2-3 weeks Follow-up with Dr. Springer as previously scheduled) Activity/Diet/Wound Care/Special Instructions: Post EP study - Ablation instructions 1. Keep access sites dry for 2 days. 2. No heavy lifting or straining for 2 days. 3. Avoid bending the hips repeatedly for 2 days. 4. You may go up and down stairs slowly Call if the following is noted 1. Bleeding, increasing swelling or pain at the access sites. 2. Increasing chest discomfort, especially upon taking a deep breath. 3. Increasing shortness of breath, at rest or with exertion. 4. Undue cough / phlegm 5. Difficulty or pain while swallowing. 6. Pain or change in color in the extremities. 7. Fever, chills, rigors. 8. Increasing headache or neurologic symptoms. 9. Dizziness, fainting, palpitations Stop Diltiazem, reduce metoprolol to 100 mg once daily, continue all other medications including Xarelto
== END 2019-02-17 13:28 | disposition home or self-care (01) ==
LOC: CATHEP 11:58 → 1SOBS 16:52 → CATHEP 02-17 13:28
PROVIDERS: ATTEND Internal Medicine Clinical Cardiac Electrophysiology
DX: I48.0 Paroxysmal atrial fibrillation (principal); I49.5 Sick sinus syndrome; I10 Essential (primary) hypertension; E78.5 Hyperlipidemia, unspecified; Z95.0 Presence of cardiac pacemaker; K21.9 Gastro-esophageal reflux disease without esophagitis; M19.90 Unspecified osteoarthritis, unspecified site; Z85.828 Personal history of other malignant neoplasm of skin; I05.9 Rheumatic mitral valve disease, unspecified; Z95.2 Presence of prosthetic heart valve; Z90.710 Acquired absence of both cervix and uterus; Z96.652 Presence of left artificial knee joint; Z80.6 Family history of leukemia; Z82.49 Family history of ischemic heart disease and other diseases of the circulatory system; Z79.01 Long term (current) use of anticoagulants; Z79.899 Other long term (current) drug therapy; Z88.5 Allergy status to narcotic agent
CPT/HCPCS: 93650; C1894; C1769 ×3; C1733; C1893; J2250; J0690; J2001; J0171; J3010; J2704

== ENCOUNTER → 2019-04-24 | Outpatient (CLI) | payer MEDICARE ==
--- NOTE | 2019-04-27 13:40 | MM ---
Reason for exam: screening (asymptomatic). Last mammogram was performed 1 year ago. History: Patient is postmenopausal, has history of high-risk lesion on a previous biopsy at age 67, and has history of other cancer at age 49. Family history of breast cancer in mother. Benign right breast needle localzation of both breasts, November 12, 2012. High risk US RT VAD breast biopsy of the right breast, October 30, 2012. Benign excisional biopsy of the left breast. Took estrogen for 10 years. Physical Findings: A clinical breast exam by your physician is recommended on an annual basis and results should be correlated with mammographic findings. MG 3D Screening Mammo W/Cad Bilateral CC and MLO view(s) were taken. CV view(s) were taken of the left breast. Prior study comparison: April 17, 2018, bilateral MG 3d screening mammo w/cad. April 02, 2017, bilateral MG 3d screening mammo w/cad. The breast tissue is heterogeneously dense. This may lower the sensitivity of mammography. There is chronic nodularity in the left breast. No significant changes when compared with prior studies. ASSESSMENT: Benign, BI-RAD 2 RECOMMENDATION: Routine screening mammogram of both breasts in 1 year.
== END | disposition home or self-care (01) ==
LOC: RADMAMWWP 12:38
PROVIDERS: ATTEND Obstetrics & Gynecology
DX: Z12.31 Encounter for screening mammogram for malignant neoplasm of breast (principal); Z80.3 Family history of malignant neoplasm of breast
CPT/HCPCS: 77063; 77067

== ENCOUNTER → 2019-05-07 | Day surgery (SDC) | payer MEDICARE ==
[2019-05-06 09:37] VITALS: BMI 29.0
[~2019-05-07] MED LIST changes: +LACTATED RINGERS 1,000 ML IV SCH; +LIDOCAINE 1% 20 ML VIAL (10MG/ML) FOR IV START INTRADERMA ONE; -LIDOCAINE 1% 20 ML VIAL (10MG/ML) FOR IV START INTRADERMA PRN; +LIDOCAINE 1% INJ 10MG/ML (20 ML MDV) ONE; -MORPHINE SULFATE 2 MG/ML SYRINGE IV PRN; -ONDANSETRON 4 MG/2 ML VIAL IVP PRN; +PROPOFOL 10 MG/ML 20 ML VIAL IV ONE
[2019-05-07 08:35] VITALS: RESP 16; TEMP 97.4
--- NOTE | 2019-05-07 09:41 | P.PCN ---
Date of Procedure: 05/07/19 Description of Procedure: Brief history: Patient is a pleasant scheduled for an elective upper endoscopy as well as colonoscopy as a part of evaluation of iron deficiency anemia. Patient reports new-onset anemia over the past year. Denies any signs or symptoms of GI bleeding. Denies any NSAID use. No abdominal pain or blood per rectum reported that the patient does feel that her bowel movements have become more frequently with age. Last colonoscopy approximately 10 years ago per her recollection and normal. Procedure performed: Esophagogastroduodenoscopy with biopsy Colonoscopy with biopsy Estimated blood loss: Minimal. Preoperative diagnosis: Iron deficiency anemia, last colonoscopy approximately 10 years ago per the patient's recollection and normal Anesthesia: MAC Procedure: After informed consent was obtained from the patient was brought into the endoscopy unit and IV sedation was administered by anesthesia under continuous monitoring. Initially upper endoscopy was done. The Olympus GF 190 video endoscope was inserted into the mouth and esophagus intubated without any difficulty and was gradually advanced into the stomach and duodenum and carefully examined. The bulb and second part of the duodenum appeared normal, with biopsies taken in the setting of iron deficiency anemia to rule out celiac sprue. The scope was then withdrawn into the stomach adequately insufflated with air and upon careful examination the antrum and body, cardia and fundus appeared normal except for some diminutive polyps in the fundus and body of the stomach likely representing fundic gland polyps which were biopsied as well as biopsies of the antrum and body to rule out Helicobacter pylori infection. The scope was then withdrawn into the esophagus. The GE junction was located at 38 cm to the incisors and biopsied in the setting of history of reflux. It appea red regular with no erythema erosions or ulcerations. Rest of the esophagus appeared normal. Patient tolerated the procedure well. At this time the patient continued to remain sedation. Initial digital rectal examination was normal. Olympus CF 190 video colonoscope was then inserted into the rectum and gradually advanced to the cecum without any difficulty. The terminal ileum was intubated and appeared normal. Careful examination was performed as the scope was gradually being withdrawn. The prep was excellent. The cecum, ascending colon, transverse colon, descending colon, sigmoid colon and rectum appeared normal, with biopsies taken of the right colon as the patient has reported increased frequency of bowel movements. Retroflexion was performed in the rectum and no lesions were noted. Patient tolerated the procedure well. Impression: 1. No masses, ulcers, AVMs or other pathology on upper or lower endoscopy to explain iron deficiency anemia. 2. Few diminutive gastric polyps likely representing fundic gland polyps, biopsied. Biopsies of the duodenum, antrum body, and GE junction. 3. Normal-appearing colon from rectum to cecum with normal-appearing terminal ileum. Biopsies of the right colon as patient has reported some increase in frequency with age of her bowel movements to rule out microscopic colitis. Recommendations: Findings of this examination were discussed with the patient as well as her friend. Okay to resume diet. Okay to resume medications today and Xarelto tomorrow. with pathology from biopsies. Continue to monitor hemoglobin and hematocrit. If anemia persists further evaluation by hematology service and possible video capsule endoscopy can be pursued.
[2019-05-07 09:56] VITALS: BP 142/77; PULSE 60
== END | disposition home or self-care (01) ==
LOC: ORWHC2ENDO 08:02
PROVIDERS: ATTEND Internal Medicine
DX: K29.50 Unspecified chronic gastritis without bleeding (principal); K31.89 Other diseases of stomach and duodenum; K31.7 Polyp of stomach and duodenum; K22.8 Other specified diseases of esophagus; R19.4 Change in bowel habit; I11.9 Hypertensive heart disease without heart failure; D50.9 Iron deficiency anemia, unspecified; E78.5 Hyperlipidemia, unspecified; I48.91 Unspecified atrial fibrillation; K21.9 Gastro-esophageal reflux disease without esophagitis; Z88.5 Allergy status to narcotic agent; Z88.4 Allergy status to anesthetic agent; Z79.899 Other long term (current) drug therapy; Z79.01 Long term (current) use of anticoagulants; Z79.2 Long term (current) use of antibiotics; Z98.890 Other specified postprocedural states; Z98.42 Cataract extraction status, left eye; Z98.41 Cataract extraction status, right eye; Z96.651 Presence of right artificial knee joint; Z95.2 Presence of prosthetic heart valve; Z90.710 Acquired absence of both cervix and uterus; Z95.0 Presence of cardiac pacemaker
CPT/HCPCS: 88305; 45380; 43239; J2001; J2704

== ENCOUNTER → 2019-09-09 | Outpatient (CLI) | payer MEDICARE ==
[2019-09-09 17:40] LABS: Anion Gap 8.2 mmol/L (4.00-12.00); BUN/Creat Ratio 21.11 Ratio (12.00-20.00); Calcium 9.9 mg/dL (8.7-10.3); Carbon Dioxide 30.8 mmol/L (21.6-31.8); Non-African American GFR(CKD) 62.1 (60.0-200.0); Potassium 3.9 mmol/L (3.5-5.5)
== END | disposition home or self-care (01) ==
LOC: LABWHC1 08:50
PROVIDERS: ATTEND Nurse Practitioner Adult Health
DX: I10 Essential (primary) hypertension (principal)
CPT/HCPCS: 36415; 80048

== ENCOUNTER → 2019-12-18 | Outpatient (CLI) | payer MEDICARE ==
[2019-12-18 16:19] LABS: Albumin 4.7 g/dL (3.80-4.90); Albumin/Globulin Ratio 2.35 (1.60-3.17); Anion Gap 4.9 mmol/L (4.00-12.00); Calcium 9.7 mg/dL (8.7-10.3); Carbon Dioxide 33.1 mmol/L (21.6-31.8); Chol/HDL Ratio 3.14; LDL Cholesterol,Calculated 94.4 mg/dL (0.0-131.0); Non-African American GFR(CKD) 71.6 (60.0-200.0); Potassium 3.8 mmol/L (3.5-5.5); Total Bilirubin 0.8 mg/dL (0.3-1.2); Total Protein 6.7 g/dL (6.2-8.2); VLDL Calculation 42.6 mg/dL (5.00-40.00)
== END | disposition home or self-care (01) ==
LOC: LABWHC1 09:54
PROVIDERS: ATTEND Internal Medicine Interventional Cardiology
DX: E78.2 Mixed hyperlipidemia (principal)
CPT/HCPCS: 36415; 80053; 80061; 83540

== ENCOUNTER → 2020-06-10 | Outpatient (CLI) | payer MEDICARE ==
[2020-06-10 20:59] LABS: African American GFR (CKD) 82.4 (60.0-200.0); Albumin 4.7 g/dL (3.80-4.90); Albumin/Globulin Ratio 2.35 (1.60-3.17); Anion Gap 7.7 mmol/L (4.00-12.00); BUN/Creat Ratio 21.25 Ratio (12.00-20.00); Calcium 9.7 mg/dL (8.7-10.3); Carbon Dioxide 30.3 mmol/L (21.6-31.8); Chol/HDL Ratio 3.38; Non-African American GFR(CKD) 71.1 (60.0-200.0); Potassium 4.2 mmol/L (3.5-5.5); Total Bilirubin 0.7 mg/dL (0.2-1.2); Total Protein 6.7 g/dL (6.2-8.2)
== END | disposition home or self-care (01) ==
LOC: LABWHC1 11:16
PROVIDERS: ATTEND Internal Medicine Interventional Cardiology
DX: E78.2 Mixed hyperlipidemia (principal)
CPT/HCPCS: 36415; 80053; 80061; 83540

== ENCOUNTER → 2020-06-30 | Outpatient (CLI) | payer MEDICARE ==
--- NOTE | 2020-07-05 09:59 | MM ---
Reason for exam: screening (asymptomatic). Last mammogram was performed 1 year and 2 months ago. History: Patient is postmenopausal, has history of high-risk lesion on a previous biopsy at age 67, and has history of other cancer at age 49. Family history of breast cancer in mother. Benign right breast needle localzation of both breasts, November 12, 2012. High risk US RT VAD breast biopsy of the right breast, October 30, 2012. Benign excisional biopsy of the left breast. Took estrogen for 10 years. Physical Findings: A clinical breast exam by your physician is recommended on an annual basis and results should be correlated with mammographic findings. MG 3D Screening Mammo W/Cad Bilateral CC and MLO view(s) were taken. Prior study comparison: April 24, 2019, bilateral MG 3d screening mammo w/cad. April 17, 2018, bilateral MG 3d screening mammo w/cad. The breast tissue is heterogeneously dense. This may lower the sensitivity of mammography. There is chronic nodularity bilaterally, in a benign pattern. Pacemaker projecting over the left pec. No significant changes when compared with prior studies. ASSESSMENT: Benign, BI-RAD 2 RECOMMENDATION: Routine screening mammogram of both breasts in 1 year.
== END | disposition home or self-care (01) ==
LOC: RADMAMWWP 08:17
PROVIDERS: ATTEND Family Medicine
DX: Z12.31 Encounter for screening mammogram for malignant neoplasm of breast (principal)
CPT/HCPCS: 77063; 77067

== ENCOUNTER → 2020-07-04 | Outpatient (CLI) | payer MEDICARE ==
--- NOTE | 2020-07-05 16:41 | BD ---
EXAMINATION TYPE: Axial Bone Density DATE OF EXAM: 07/04/2020 COMPARISON: NONE CLINICAL HISTORY: Height: 5 FT 6 1/2 IN Weight: 203 FRAX RISK QUESTIONS: Alcohol (3 or more units per day): NO Family History (Parent hip fracture): NO Glucocorticoids (More than 3mos): NO (Ex: prednisone, prednisolone, methylprednisolone, dexamethasone, and hydrocortisone). History of Fracture in Adulthood: YES Secondary Osteoporosis: 1. Type 1 Diabetes: NO 2. Hyperthyroidism: NO 3. Menopause before 45: NO 4. Malnutrition: NO 5. Chronic liver disease: NO Rheumatoid Arthritis: NO Current Tobacco Use: NO RISK FACTORS HISTORY OF: Family History of Osteoporosis: YES Active: SOME Diet low in dairy products/other sources of calcium: NO Postmenopausal woman: AGE 48 Take estrogen and/or progesterone medications: TOOK HRT FROM AGE [age] Lost more than 2 inches in height since high school: YES MEDICATIONS: Additional Medications: METOPROLOL, HYDRPCHLOROTHIAZIDE, SIMVASTATIN, OMEPRAZOLE, WARFARIN, TYLENOL ARTHRITIS, Additional History: OPEN HEART PACEMAKER EXAM MEASUREMENTS: Bone mineral densitometry was performed using the [employer] System. Bone mineral density as measured about the Lumbar spine is: ----- L1-L4(G/cm2): 1.016 T Score Values are as follows: ----- L2: -1.4 ----- L3: -1.4 ----- L4: -1.3 ----- L1-L4: -1.4 Bone mineral density has: INCREASED 1.3 % since study of: 2018 Bone mineral density about the R hip (g/cm2) 1.059: Bone mineral density about the L hip (g/cm2): 1.002 T Score values are as follows: -----R Neck: 0.1 -----L Neck: -0.3 -----R Total: 0.0 -----L Total: -0.5 Bone mineral density has: DECREASED -2.6 % since study of: 2018 IMPRESSION: Osteopenia (T Score between -2.5 and -1). There is slightly increased risk of fracture and the patient may be considered for treatment. Re-Screen 2-5 years. NOTE: T-SCORE=SD OF THE YOUNG ADULT MEAN.
== END | disposition home or self-care (01) ==
LOC: RADBDWWP 15:28
PROVIDERS: ATTEND Obstetrics & Gynecology
DX: M81.8 Other osteoporosis without current pathological fracture (principal); M89.9 Disorder of bone, unspecified
CPT/HCPCS: 77080

== ENCOUNTER → 2020-11-17 | Outpatient (CLI) | payer MEDICARE ==
[2020-11-17 19:01] LABS: Basophils # (A) 0.03 X 10*3/uL (0.00-0.10); Basophils % (A) 0.6 %; Eosinophils % (A) 1.9 %; HCT 39.1 % (37.2-46.3); HGB 13.1 g/dL (12.0-15.0); Lymphocytes # (A) 1.91 X 10*3/uL (0.90-5.00); MCHC 33.5 g/dL (32.0-37.0); MCV 92.7 fL (80.0-97.0); Mean Platelet Volume 11.4 fL (9.5-12.2); Monocytes # (A) 0.33 X 10*3/uL (0.20-1.00); Monocytes % (A) 6.2 %; Neutrophils # (A) 2.93 X 10*3/uL (1.80-7.70); Neutrophils % (A) 55.1 %; Platelet Count 212 X 10*3/uL (140-440); RBC 4.22 X 10*6/uL (4.10-5.20); RDW 13.6 % (11.5-14.5); WBC 5.31 X 10*3/uL (4.50-10.00)
[2020-11-17 21:07] LABS: % Iron Saturation 23.14 (12.00-45.00); African American GFR (CKD) 82.4 (60.0-200.0); Albumin 4.7 g/dL (3.80-4.90); Albumin/Globulin Ratio 2.76 (1.60-3.17); Anion Gap 12.2 mmol/L (4.00-12.00); BUN/Creat Ratio 21.25 Ratio (12.00-20.00); Calcium 9.3 mg/dL (8.7-10.3); Carbon Dioxide 28.8 mmol/L (21.6-31.8); Chol/HDL Ratio 3.56; Globulin 1.7 g/dL (1.6-3.3); LDL Cholesterol,Calculated 102.2 mg/dL (0.0-131.0); Non-African American GFR(CKD) 71.1 (60.0-200.0); Potassium 3.4 mmol/L (3.5-5.5); Total Bilirubin 0.8 mg/dL (0.2-1.2); Total Protein 6.4 g/dL (6.2-8.2); VLDL Calculation 38.8 mg/dL (5.00-40.00)
[2020-11-17 21:15] LABS: Ferritin 155.8 ng/mL (10.0-291.0)
== END | disposition home or self-care (01) ==
LOC: LABWHC1 10:32
PROVIDERS: ATTEND Internal Medicine Interventional Cardiology
DX: I48.20 Chronic atrial fibrillation, unspecified (principal); E78.2 Mixed hyperlipidemia; K21.9 Gastro-esophageal reflux disease without esophagitis
CPT/HCPCS: 36415; 80053; 80061; 82728; 83540; 83550; 85025

== ENCOUNTER → 2020-11-29 | Outpatient (CLI) | payer MEDICARE ==
--- NOTE | 2020-11-29 15:41 | CT ---
EXAMINATION TYPE: CT iac w con DATE OF EXAM: 11/29/2020 COMPARISON: None HISTORY: bilateral hearing loss and ringing CT DLP: 142.7 mGycm Automated exposure control for dose reduction was used. CONTRAST: CT scan of the IACs is performed with IV Contrast, patient injected with 100 mL of Isovue 300. FINDINGS: The external auditory canals are patent bilaterally. Mastoid air cells show no evidence of abnormal opacification bilaterally. The middle ear ossicles are symmetric and unremarkable. There is no evidence of suspicious surrounding soft tissue density to suggest cholesteatoma. The scutum is preserved bilaterally. The cochlea and the semicircular canals are symmetric and unremarkable. Ves tibular aqueduct and internal carotid canal appear unremarkable. Temporomandibular joints are mainta ined bilaterally. IMPRESSION: No significant abnormality seen to account for patient's symptoms.
== END | disposition home or self-care (01) ==
LOC: RADCTMAIN 14:12
PROVIDERS: ATTEND Otolaryngology
DX: H91.93 Unspecified hearing loss, bilateral (principal)
CPT/HCPCS: 82565; 84520; 70481; 36415; Q9967

== ENCOUNTER → 2020-12-20 | Outpatient (CLI) | payer MEDICARE | END | disposition home or self-care (01) | LOC: LABWHC1 13:52 | PROVIDERS: ATTEND Nurse Practitioner Adult Health | DX: E87.6 Hypokalemia (principal) | CPT/HCPCS: 36415; 84132 ==

== ENCOUNTER → 2021-01-09 | Outpatient (CLI) | payer MEDICARE ==
[2021-01-09 18:37] LABS: African American GFR (CKD) 82.4 (60.0-200.0); Anion Gap 7.6 mmol/L (4.00-12.00); Calcium 9.3 mg/dL (8.7-10.3); Carbon Dioxide 29.4 mmol/L (21.6-31.8); Non-African American GFR(CKD) 71.1 (60.0-200.0); Potassium 3.5 mmol/L (3.5-5.5)
== END | disposition home or self-care (01) ==
LOC: LABWHC1 13:32
PROVIDERS: ATTEND Nurse Practitioner Adult Health
DX: E87.6 Hypokalemia (principal)
CPT/HCPCS: 36415; 80048

== ENCOUNTER → 2021-01-24 | Outpatient (CLI) | payer MEDICARE ==
[2021-01-24 19:26] LABS: HCT 39.3 % (37.2-46.3); HGB 13.1 g/dL (12.0-15.0); MCH 31.2 pg (27.0-32.0); MCHC 33.3 g/dL (32.0-37.0); MCV 93.6 fL (80.0-97.0); Mean Platelet Volume 11.2 fL (9.5-12.2); Platelet Count 209 X 10*3/uL (140-440); RDW 13.5 % (11.5-14.5); WBC 5.57 X 10*3/uL (4.50-10.00)
[2021-01-24 22:28] LABS: Hemoglobin A1C 5.9 % (4.0-6.0)
[2021-01-25 01:38] LABS: African American GFR (CKD) 82.4 (60.0-200.0); Albumin 4.5 g/dL (3.80-4.90); Albumin/Globulin Ratio 2.25 (1.60-3.17); Anion Gap 9.7 mmol/L (4.00-12.00); BUN/Creat Ratio 26.25 Ratio (12.00-20.00); Calcium 9.7 mg/dL (8.7-10.3); Carbon Dioxide 27.3 mmol/L (21.6-31.8); Non-African American GFR(CKD) 71.1 (60.0-200.0); Potassium 3.8 mmol/L (3.5-5.5); Total Bilirubin 0.6 mg/dL (0.3-1.2); Total Protein 6.5 g/dL (6.2-8.2)
== END | disposition home or self-care (01) ==
LOC: LABWHC1 11:24
PROVIDERS: ATTEND Orthopaedic Surgery Adult Reconstructive Orthopaedic Surgery
DX: Z01.812 Encounter for preprocedural laboratory examination (principal); Z13.1 Encounter for screening for diabetes mellitus; M17.12 Unilateral primary osteoarthritis, left knee
CPT/HCPCS: 36415; 80053; 83036; 85027; 87070

== ENCOUNTER → 2021-05-27 | Outpatient (CLI) | payer MEDICARE ==
[2021-05-27 18:06] LABS: ALT 10 U/L (8-44); AST 17 U/L (13-35); African American GFR (CKD) 84.3 (60.0-200.0); Albumin 4.2 g/dL (3.8-4.9); Albumin/Globulin Ratio 2.07 (1.60-3.17); Alkaline Phosphatase 103 U/L (41-126); BUN/Creat Ratio 19.72 Ratio (12.00-20.00); Blood Urea Nitrogen 15.4 mg/dL (9.0-27.0); Calcium 9.6 mg/dL (8.7-10.3); Carbon Dioxide 28.3 mmol/L (21.6-31.8); Chloride 100 mmol/L (96-109); Chol/HDL Ratio 3.49 Ratio; Glucose 109 mg/dL (70-110); LDL Cholesterol,Calculated 92.5 mg/dL (0.0-131.0); Non-African American GFR(CKD) 72.7 (60.0-200.0); Potassium 3.3 mmol/L (3.5-5.5); Sodium 140 mmol/L (135-145); Total Protein 6.3 g/dL (6.2-8.2)
== END | disposition home or self-care (01) ==
LOC: LABWHC1 09:35
PROVIDERS: ATTEND Nurse Practitioner Adult Health
DX: I10 Essential (primary) hypertension (principal); E78.2 Mixed hyperlipidemia
CPT/HCPCS: 36415; 80053; 80061

== ENCOUNTER → 2021-06-26 | Outpatient (CLI) | payer MEDICARE ==
[2021-06-26 21:24] LABS: African American GFR (CKD) 96.2 (60.0-200.0); Anion Gap 14.8 mmol/L (10.00-18.00); Blood Urea Nitrogen 20.3 mg/dL (9.0-27.0); Calcium 9.4 mg/dL (8.7-10.3); Carbon Dioxide 21.2 mmol/L (20.0-27.5); Potassium 3.7 mmol/L (3.5-5.5)
== END | disposition home or self-care (01) ==
LOC: LABWHC1 13:08
PROVIDERS: ATTEND Nurse Practitioner Adult Health
DX: I10 Essential (primary) hypertension (principal); E87.6 Hypokalemia
CPT/HCPCS: 36415; 80048

== ENCOUNTER → 2021-08-10 | Outpatient (CLI) | payer MEDICARE ==
--- NOTE | 2021-08-14 09:06 | MM ---
Reason for exam: screening (asymptomatic). Last mammogram was performed 1 year and 1 month ago. History: Patient is postmenopausal, has history of high-risk lesion on a previous biopsy at age 67, and has history of other cancer at age 49. Family history of breast cancer in mother. Benign right breast needle localzation of both breasts, November 12, 2012. High risk US RT VAD breast biopsy of the right breast, October 30, 2012. Benign excisional biopsy of the left breast. Took estrogen for 10 years. Physical Findings: A clinical breast exam by your physician is recommended on an annual basis and results should be correlated with mammographic findings. MG 3D Screening Mammo W/Cad Bilateral CC and MLO view(s) were taken. Prior study comparison: June 30, 2020, bilateral MG 3d screening mammo w/cad. April 24, 2019, bilateral MG 3d screening mammo w/cad. There are scattered fibroglandular densities. There is chronic nodularity bilaterally. Pacemaker generator over the left pectoralis. No significant changes when compared with prior studies. ASSESSMENT: Benign, BI-RAD 2 RECOMMENDATION: Routine screening mammogram of both breasts in 1 year. Patient should continue monthly self breast exams. A negative report should not preclude additional follow up of suspicious palpable abnormalities.
== END | disposition home or self-care (01) ==
LOC: RADMAMWWP 09:18
PROVIDERS: ATTEND Obstetrics & Gynecology
DX: Z12.31 Encounter for screening mammogram for malignant neoplasm of breast (principal); Z80.3 Family history of malignant neoplasm of breast; Z78.0 Asymptomatic menopausal state
CPT/HCPCS: 77063; 77067

== ENCOUNTER → 2021-11-28 | Outpatient (CLI) | payer MEDICARE ==
[2021-11-28 18:27] LABS: ALT 21 U/L (8-44); AST 18 U/L (13-35); African American GFR (CKD) 81.8 (60.0-200.0); Albumin 4.7 g/dL (3.8-4.9); Albumin/Globulin Ratio 2.35 (1.60-3.17); Alkaline Phosphatase 92 U/L (41-126); BUN/Creat Ratio 18.88 Ratio (12.00-20.00); Blood Urea Nitrogen 15.1 mg/dL (9.0-27.0); Calcium 9.4 mg/dL (8.7-10.3); Carbon Dioxide 30.1 mmol/L (20.0-27.5); Chloride 101 mmol/L (96-109); Chol/HDL Ratio 3.44 Ratio; Glucose 94 mg/dL (70-110); LDL Cholesterol,Calculated 97.4 mg/dL (0.0-131.0); Non-African American GFR(CKD) 70.6 (60.0-200.0); Potassium 3.6 mmol/L (3.5-5.5); Sodium 141 mmol/L (135-145); Total Protein 6.7 g/dL (6.2-8.2)
== END | disposition home or self-care (01) ==
LOC: LABWHC1 12:26
PROVIDERS: ATTEND Nurse Practitioner Adult Health
DX: I10 Essential (primary) hypertension (principal); E78.2 Mixed hyperlipidemia
CPT/HCPCS: 36415; 80053; 80061

== ENCOUNTER → 2022-06-04 | Outpatient (CLI) | payer MEDICARE ==
[2022-06-04 14:40] LABS: ALT 14 U/L (8-44); AST 23 U/L (13-35); Chol/HDL Ratio 3.39 Ratio; LDL Cholesterol,Calculated 113.1 mg/dL (0.0-131.0)
== END | disposition home or self-care (01) ==
LOC: LABWHC1 09:07
PROVIDERS: ATTEND Internal Medicine Interventional Cardiology
DX: E78.2 Mixed hyperlipidemia (principal)
CPT/HCPCS: 36415; 80061; 84450; 84460

== ENCOUNTER → 2022-11-22 | Outpatient (CLI) | payer MEDICARE ==
[2022-11-22 15:47] LABS: ALT 23 U/L (8-44); AST 22 U/L (13-35); African American GFR (CKD) 70.2 (60.0-200.0); Albumin 4.6 g/dL (3.8-4.9); Albumin/Globulin Ratio 2.34 (1.60-3.17); Alkaline Phosphatase 91 U/L (41-126); BUN/Creat Ratio 20.27 Ratio (12.00-20.00); Blood Urea Nitrogen 18.3 mg/dL (9.0-27.0); Calcium 9.7 mg/dL (8.7-10.3); Carbon Dioxide 29.4 mmol/L (20.0-27.5); Chloride 99 mmol/L (96-109); Chol/HDL Ratio 3.62 Ratio; Glucose 101 mg/dL (70-110); Non-African American GFR(CKD) 60.6 (60.0-200.0); Sodium 141 mmol/L (135-145); Total Protein 6.5 g/dL (6.2-8.2)
== END | disposition home or self-care (01) ==
LOC: LABWHC1 09:30
PROVIDERS: ATTEND Internal Medicine Interventional Cardiology
DX: E78.2 Mixed hyperlipidemia (principal)
CPT/HCPCS: 36415; 80053; 80061

== ENCOUNTER → 2023-05-27 | Outpatient (CLI) | payer MEDICARE ==
[2023-05-28 02:48] LABS: Basophils # (A) 0.04 X 10*3/uL (0.00-0.10); Basophils % (A) 0.8 %; Eosinophils # (A) 0.13 X 10*3/uL (0.04-0.35); Eosinophils % (A) 2.6 %; HCT 40.8 % (37.2-46.3); HGB 13.3 g/dL (12.0-15.0); Lymphocytes % (A) 35.8 %; MCHC 32.6 g/dL (32.0-37.0); MCV 92.1 FL (80.0-97.0); Mean Platelet Volume 11.1 FL (9.5-12.2); Monocytes # (A) 0.32 X 10*3/uL (0.20-1.00); Monocytes % (A) 6.4 %; NRBC Per 100 WBC 0 X 10*3/uL (0.00-0.01); Neutrophils # (A) 2.72 X 10*3/uL (1.80-7.70); Platelet Count 223 X 10*3/uL (140-440); RBC 4.43 X 10*6/uL (4.10-5.20); RDW 14.4 % (11.5-14.5); WBC 5.03 X 10*3/uL (4.50-10.00)
[2023-05-28 03:08] LABS: ALT 22 U/L (8-44); AST 20 U/L (13-35); Albumin 4.6 g/dL (3.8-4.9); Alkaline Phosphatase 87 U/L (41-126); Blood Urea Nitrogen 19.6 mg/dL (9.0-27.0); Calcium 9.7 mg/dL (8.7-10.3); Carbon Dioxide 27.1 mmol/L (21.6-31.8); Chloride 101 mmol/L (96-109); Chol/HDL Ratio 3.21 Ratio; Glucose 101 mg/dL (70-110); Potassium 3.4 mmol/L (3.5-5.5); Sodium 141 mmol/L (135-145); Total Bilirubin 0.6 mg/dL (0.3-1.2); Total Protein 6.6 g/dL (6.2-8.2)
== END | disposition home or self-care (01) ==
LOC: LABWHC1 12:53
PROVIDERS: ATTEND Internal Medicine Interventional Cardiology
DX: I48.20 Chronic atrial fibrillation, unspecified (principal); E78.2 Mixed hyperlipidemia; E87.6 Hypokalemia
CPT/HCPCS: 36415; 80053; 80061; 84443; 85025

== ENCOUNTER → 2023-08-14 | Outpatient (CLI) | payer MEDICARE ==
--- NOTE | 2023-08-15 08:34 | MM ---
Reason for Exam: Screening (asymptomatic). Last screening mammogram was performed 12 month(s) ago. Patient History: Menarche at age 10. First Full-Term at age 21. Left ovary removed at age 48. Right ovary removed at age 48. Hysterectomy at age 48. Postmenopausal. Other cancer, age 49. Patient used Estrogen for 10 years. Benign Excisional Biopsy on the left side. 11/12/2012, Bilateral Benign Excisional Biopsy. 10/30/2012, High risk Core Biopsy on the right side. Mother had breast cancer. Risk Values: Yumiko 5 year model risk: 4.7%. NCI Lifetime model risk: 7.2%. Prior Study Comparison: 06/30/2020 Bilateral Screening Mammogram, [facility]. 08/10/2021 Bilateral Screening Mammogram, [facility]. 08/13/2022 Bilateral MG 3D screening mammo w/cad, [facility]. Tissue Density: The breast tissue is heterogeneously dense. This may lower the sensitivity of mammography. Findings: Analyzed By CAD. There is no suspicious group of microcalcifications or new suspicious mass in either breast. Overall Assessment: Benign, BI-RAD 2 Management: Screening Mammogram of both breasts in 1 year. . Patient should continue monthly self-breast exams. A clinical breast exam by your physician is recommended on an annual basis. This exam should not preclude additional follow-up of suspicious palpable abnormalities. Note on Yumiko scores and lifetime risk: 1. A Yumiko score greater than 3% is considered moderate risk. If this is the case, consider specialist referral to assess eligibility for a risk reducing agent. 2. If overall lifetime risk for the development of breast cancer is 20% or higher, the patient may qualify for future screening with alternating mammogram and breast MRI. Electronically signed and approved by: Carlos Darden M.D. Radiologis
== END | disposition home or self-care (01) ==
LOC: RADMAMWWP 10:49
PROVIDERS: ATTEND Family Medicine
DX: Z12.31 Encounter for screening mammogram for malignant neoplasm of breast (principal); Z80.3 Family history of malignant neoplasm of breast; Z78.0 Asymptomatic menopausal state
CPT/HCPCS: 77063; 77067

== ENCOUNTER → 2023-11-12 | Outpatient (CLI) | payer MEDICARE ==
[2023-11-12 15:18] LABS: ALT 20 U/L (8-44); AST 23 U/L (13-35); Albumin 4.6 g/dL (3.8-4.9); Albumin/Globulin Ratio 2.19 Ratio (1.60-3.17); Alkaline Phosphatase 101 U/L (41-126); BUN/Creat Ratio 17.22 Ratio (12.00-20.00); Blood Urea Nitrogen 15.5 mg/dL (9.0-27.0); Calcium 10.2 mg/dL (8.7-10.3); Carbon Dioxide 27.3 mmol/L (21.6-31.8); Chloride 101 mmol/L (96-109); Chol/HDL Ratio 3.29 Ratio; Globulin 2.1 g/dL (1.6-3.3); Glucose 111 mg/dL (70-110); Iron 108 UG/DL (50-170); LDL Cholesterol,Calculated 99.5 mg/dL (0.0-131.0); Potassium 3.7 mmol/L (3.5-5.5); Sodium 142 mmol/L (135-145); Total Bilirubin 0.7 mg/dL (0.3-1.2); Total Iron Binding Capacity 344 UG/DL (228-460); Total Protein 6.7 g/dL (6.2-8.2)
== END | disposition home or self-care (01) ==
LOC: LABWHC1 11:03
PROVIDERS: ATTEND Internal Medicine Interventional Cardiology
DX: I48.20 Chronic atrial fibrillation, unspecified (principal); E78.2 Mixed hyperlipidemia; Z86.2 Personal history of diseases of the blood and blood-forming organs and certain disorders involving the immune mechanism
CPT/HCPCS: 36415; 80053; 80061; 82728; 83540; 83550

== ENCOUNTER → 2024-05-12 | Outpatient (CLI) | payer MEDICARE ==
[2024-05-12 19:07] LABS: ALT 25 U/L (8-44); AST 25 U/L (13-35); Chol/HDL Ratio 2.93 Ratio; LDL Cholesterol,Calculated 89.7 mg/dL (0.0-131.0)
== END | disposition home or self-care (01) ==
LOC: LABWHC1 12:51
PROVIDERS: ATTEND Internal Medicine Interventional Cardiology
DX: E78.2 Mixed hyperlipidemia (principal)
CPT/HCPCS: 36415; 80061; 84450; 84460

== ENCOUNTER → 2024-11-10 | Outpatient (CLI) | payer MEDICARE ==
[2024-11-10 20:57] LABS: Basophils # (A) 0.03 X 10*3/uL (0.00-0.10); Basophils % (A) 0.5 %; Eosinophils # (A) 0.11 X 10*3/uL (0.04-0.35); Eosinophils % (A) 1.9 %; HCT 42.2 % (37.2-46.3); HGB 13.6 g/dL (12.0-15.0); Lymphocytes # (A) 1.95 X 10*3/uL (0.90-5.00); Lymphocytes % (A) 34.2 %; MCH 29.4 pg (27.0-32.0); MCHC 32.2 g/dL (32.0-37.0); MCV 91.3 FL (80.0-97.0); Mean Platelet Volume 11.3 FL (9.5-12.2); Monocytes # (A) 0.39 X 10*3/uL (0.20-1.00); Monocytes % (A) 6.8 %; NRBC Per 100 WBC 0 X 10*3/uL (0.00-0.01); Neutrophils # (A) 3.18 X 10*3/uL (1.80-7.70); Neutrophils % (A) 55.9 %; Platelet Count 206 X 10*3/uL (140-440); RBC 4.62 X 10*6/uL (4.10-5.20); RDW 14.6 % (11.5-14.5)
[2024-11-10 23:45] LABS: ALT 24 U/L (8-44); AST 22 U/L (13-35); Albumin 4.4 g/dL (3.8-4.9); Alkaline Phosphatase 102 U/L (41-126); BUN/Creat Ratio 14.67 Ratio (12.00-20.00); Blood Urea Nitrogen 13.2 mg/dL (9.0-27.0); Calcium 9.5 mg/dL (8.7-10.3); Carbon Dioxide 26.2 mmol/L (21.6-31.8); Chloride 101 mmol/L (96-109); Chol/HDL Ratio 3.39 Ratio; Globulin 2.1 g/dL (1.6-3.3); Glucose 95 mg/dL (70-110); LDL Cholesterol,Calculated 81.3 mg/dL (0.0-131.0); Potassium 3.8 mmol/L (3.5-5.5); Sodium 142 mmol/L (135-145); Total Bilirubin 0.8 mg/dL (0.3-1.2); Total Protein 6.5 g/dL (6.2-8.2)
== END | disposition home or self-care (01) ==
LOC: LABWHC1 12:43
PROVIDERS: ATTEND Internal Medicine Interventional Cardiology
DX: Z13.29 Encounter for screening for other suspected endocrine disorder (principal); E78.2 Mixed hyperlipidemia; I10 Essential (primary) hypertension; I48.20 Chronic atrial fibrillation, unspecified
CPT/HCPCS: 36415; 80053; 80061; 84443; 85025